=== PATIENT | female | born 1995 | race Caucasian/White ===

== ENCOUNTER 2022-05-18 10:52 | Outpatient (RCR) | payer OTHER, SELFPAY ==
[2022-05-20] MEDS: RHO(D) IMMUNE GLOBULIN 300 MCG/2 ML SYRINGE IM (16:36)
== END 2022-08-16 23:59 | disposition home or self-care (01) ==
LOC: ANHLAB 10:52
PROVIDERS: Visit Provider Obstetrics & Gynecology
DX: Z29.13 Encounter for prophylactic Rho(D) immune globulin (principal); O36.0190 Maternal care for anti-D [Rh] antibodies, unspecified trimester, not applicable or unspecified; Z3A.00 Weeks of gestation of pregnancy not specified
CPT/HCPCS: 36415; 85461; 86850; 86900; 86901; 90384; 96372; J2790

== ENCOUNTER 2022-07-31 10:48 | Outpatient (CLI) | payer OTHER, SELFPAY | END 2022-07-31 12:00 | disposition home or self-care (01) | LOC: ANHOBOP 11:53 → ANHLDR 11:54 | PROVIDERS: PCP Nurse Practitioner Family; Visit Provider Obstetrics & Gynecology | DX: O42.90 Premature rupture of membranes, unspecified as to length of time between rupture and onset of labor, unspecified weeks of gestation (principal) | CPT/HCPCS: 59025; 84112; 99199 ==

== ENCOUNTER 2022-08-06 15:52 | Inpatient (IN) | payer OTHER, SELFPAY ==
[2022-08-06] VITALS (39 sets, daily range): BP systolic 82–136; BP diastolic 49–92; PULSE 50–199; O2SAT 99–100; BMI 28.3
[2022-08-06 16:51] LABS: Basophils Percent Auto 0.4 % (0.2-1.2); Eosinophils Absolute Auto 0.1 K/mm3 (0-0.3); Hematocrit 33.9 % (37.0-47.0); Immature Granulocyte Absolute 0.17 K/mm3 (0.00-0.031); Immature Granulocyte Percent A 1.6 % (0-0.5); Lymphocytes Absolute Auto 1.57 K/mm3 (0.9-3.2); Lymphocytes Percent Auto 15.1 % (18.3-44.2); Mean Corpuscular HGB Conc 32.4 g/dl (32-36); Mean Corpuscular Hemoglobin 28.4 pg (26-34); Mean Corpuscular Volume 87.6 fl (80-100); Mean Platelet Volume 11.3 fl (7.4-10.4); Monocytes Absolute Auto 0.8 K/mm3 (0.1-0.6); Monocytes Percent Auto 7.9 % (2.6-8.5); Neutrophils Absolute Auto 7.7 K/mm3 (1.3-6.7); Platelet Count Result 228 k/mm3 (150-375); Red Blood Count 3.87 M/mm3 (4.2-5.4); Red Cell Distribution Width 13.9 % (11.5-14.5); White Blood Count 10.4 K/mm3 (4.5-10.0)
--- NOTE | 2022-08-06 17:26 | WPDANESEPP ---
Anes - Eval Pre Procedure Procedure: Labor epidural Date/Time: 08/06/22 17:26 Surgeon: Bang Preop Diagnosis: Abdominal pain with contractions Pre Op Diagnosis: IOL Patient Data Age: 26 Gender: F Height: Weight: Last Vital Signs Pulse 199 H 08/06/22 17:15 BP 106/82 08/06/22 17:15 Allergies Allergy/AdvReac Type Severity Reaction Status Date / Time No Known Allergies Allergy Verified 07/11/22 15:42 Home Medications Medication Instructions Recorded Confirmed Type buspirone 30 mg tablet 30 mg PO BID 07/11/22 08/06/22 History prenat.vits,lucho,zfu-xtki-depkv 1 tablet PO DAILY 07/11/22 08/06/22 History Laboratory Tests 08/06/22 08/06/22 16:25 16:26 WBC 10.4 H K/mm3 (4.5-10.0) RBC 3.87 L M/mm3 (4.2-5.4) Hgb 11.0 L g/dL (12.0-15.0) Hct 33.9 L % (37.0-47.0) MCV 87.6 fl (80-100) MCH 28.4 pg (26-34) MCHC 32.4 g/dl (32-36) RDW 13.9 % (11.5-14.5) Plt Count 228 k/mm3 (150-375) MPV 11.3 H fl (7.4-10.4) Immature Gran % (Auto) 1.6 H % (0-0.5) Neut % (Auto) 74.0 H % (45.5-73.1) Lymph % (Auto) 15.1 L % (18.3-44.2) Haskell % (Auto) 7.9 % (2.6-8.5) Eos % (Auto) 1.0 % (0-4.4) Baso % (Auto) 0.4 % (0.2-1.2) Lymph # (Auto) 1.57 K/mm3 (0.9-3.2) Haskell # (Auto) 0.8 H K/mm3 (0.1-0.6) Eos # (Auto) 0.1 K/mm3 (0-0.3) Baso # (Auto) 0.0 K/mm3 (0.0-0.1) Abs Immat Gran (auto) 0.17 H K/mm3 (0.00-0.031) Absolute Neuts (auto) 7.7 H K/mm3 (1.3-6.7) Absolute Nucleated RBC 0.0 K/mm3 (0.0-0.012) Nucleated RBC % 0.0 % (0.0-0.2) RPR Pending : gestational age HCG: positive Patient hx anesthesia problems: none Family hx anesthesia problems: none Results Review: All pre-operative results and documents have been reviewed as part of the pre-operative evaluation. [facility] Past Medical History Medical History Anxiety and depression Migraines Overweight (BMI 25.0-29.9) and not yet delivered Family History Family History Other Patient denies significant medical history Social History Social History Smoking status: Never smoker Substance use: never Lack of Transportation: No Lack of Food: Never True Current Housing: I Have Housing Concerned About Future Housing: No Difficulty Paying Gas/Electric Bills: No Difficulty Paying for Meds: No Currently Unemployed: No Education: Bachelor's Degree Difficulty w/ Childcare or Family Care: No Spiritual care concerns: No Exam Day of Procedure 08/06/22 17:26 Patient weight: overweight Neurological: alert and oriented
[2022-08-06] MEDS: DINOPROSTONE 10 MG VAG INSERT VAGINAL (17:30)
--- NOTE | 2022-08-06 18:21 | LDADM ---
This patient, Josefa Ceron, was admitted to Labor/Delivery/Recovery 103 on 08/06/22 at 15:52. Plans for labor, pain management and were discussed with patient. Patient/family oriented to hospital policies and general routines including ID bracelet, bed and alarms, visiting hours, pain management, procedures, bathroom and other care routines, personal items, smoking policy, room service/diet and guest tray routines, infant security routines, and visiting hours. Patient/Family are encouraged to report perceived risks to care and to ask questions if they do not understand what they are told or what they should do. See [facility] for further documentation.
[2022-08-07] VITALS (284 sets, daily range): BP systolic 78–152; BP diastolic 40–100; PULSE 58–136; RESP 16–18; TEMP 36.8–37.4; O2SAT 97–100
--- NOTE | 2022-08-07 12:05 | HP_ITS ---
DATE OF SERVICE: 08/06/2022 ADMITTING DIAGNOSIS: Intrauterine at 39 and 3/7th weeks gestation. PLANNED PROCEDURE: Induction of labor. HISTORY OF PRESENT ILLNESS: The patient is a 26-year-old, primigravida with last menstrual period 11/03/2021 giving her due date of 08/10/2022. Her has been essentially uncomplicated. She is Rh-negative, and has received RhoGAM. She has anxiety and takes BuSpar. Glucose challenge test was normal at 71. GBS was negative. Her blood type is O negative, she is rubella nonimmune, hepatitis B surface antigen negative, RPR negative, and HIV negative. She has occasional contractions and good movement. She was admitted last evening. Cervidil was placed overnight. It has been withdrawn. She is now receiving oxytocin and is feeling some contractions. PAST MEDICAL HISTORY: Anxiety. MEDICATIONS: 1. BuSpar 30 mg p.o. b.i.d. 2. vitamins. ALLERGIES: NO KNOWN DRUG ALLERGIES. PAST SURGICAL HISTORY: None. PAST OBSTETRIC HISTORY: None. PAST GYNECOLOGY HISTORY: Menarche age 16 with menses every 28 days, lasting 5-7 days each. She has no history of abnormal Pap or sexually transmitted infection. SOCIAL HISTORY: She is . She does not smoke, drink, or use recreational drugs. FAMILY HISTORY: Positive for cancer, hypertension, and diabetes. REVIEW OF SYSTEMS: Otherwise, unremarkable. PHYSICAL EXAMINATION: VITAL SIGNS: Afebrile. Stable vital signs. GENERAL: She is a well-developed, well-nourished female, in no acute distress. NECK: Trachea midline. No thyromegaly or masses. LUNGS: Clear to auscultation bilaterally. HEART: Regular rate and rhythm. Normal S1, S2. ABDOMEN: Soft, nontender, and gravid. Nonstress test is reactive. Tocodynamometry reveals uterine contractions every 3 minutes. EXTREMITIES: Nontender with no edema. PELVIC: Cervix is 1 cm dilated, 50% effaced, and -2 station. ASSESSMENT: Intrauterine at term, desiring induction of labor. PLAN: She is status post Cervidil, now receiving oxytocin. She thinks she would like an epidural for pain control. I anticipate a vaginal delivery. D I MT: Mana
[2022-08-07] MEDS: ONDANSETRON INJ 4 MG/2 ML VIAL IV PUSH (21:26)
[2022-08-08] VITALS (11 sets, daily range): BP systolic 102–132; BP diastolic 54–117; PULSE 66–129; RESP 16–18; TEMP 36.6–37.7; O2SAT 97–100
--- NOTE | 2022-08-08 00:15 | PC.NURSE ---
Pt only had 100 ml of Pitocin to be bolused. Per Dr. Cuenca's order, bolus 2nd half of second bag of Pitocin then switch to 125 mu/hr.
--- NOTE | 2022-08-08 00:23 | PM.OBPRVD ---
OB - Delivery Note Procedure Delivery date: 08/08/22 Procedure: Induction of labor Induction method: Per Cervidil Protocol Delivery augmentation: Rupture of Membranes and Pitocin Delivery monitor: External FHT, External Uterine and Internal Uterine Route of delivery: Laceration Description: Perineal - 2nd Degree Delivery repair: vicryl (3-0) Specimen: Yes (cord blood) Quantitative Blood Loss (ml): 110 Anesthesia type: Epidural Disposition: PACU Complications: None Narrative: 26 y/o G1 at 39 4/7 weeks gestation who presented to the hospital for induction of labor. Cervidil was placed overnight, then withdrawn in the morning. Oxytocin was administered intravenously. Amniotomy was performed with return of clear fluid. She received an epidural for pain control. Her labor progressed and her cervix dilated completely. She pushed with good effort and delivered the 's head to the perineum, followed by the body. The nose and mouth were bulb suctioned. After a delay, the cord was clamped and cut. The infant was handed off the field. Cord blood was collected. The placenta delivered spontaneously and was grossly normal in appearance. The usual 3 vessel cord was noted. A second degree midline perineal laceration was sustained. This was reapproximated using 3 0 Vicryl in the usual layered fashion. Excellent hemostasis resulted as did excellent reapproximation of the normal anatomy. Needle and instrument counts were correct. The patient was taken to recovery room in stable condition. The infant went to the nursery in stable condition. I was present and scrubbed for the entire delivery. [place] Baby Date of : 08/07/22 Time of : 23:59 Weeks of gestation at delivery: 39 gender: Female presentation: vertex position: Right Occiput Anterior Placenta delivery description: Spontaneous and Normal Configuration Cord Vessel Description: 3 Vessels, Delayed Cord Clamping and Around Extremity score one minute: 9 score five minutes: 9
[2022-08-08] MEDS: OXYTOCIN 30 UNITS/NS 500 ML 30 UNITS/500 ML BAG 125 UNITS IV CONT (00:32)
--- NOTE | 2022-08-08 00:32 | PM.OBDSVD ---
DS: Admitting Diagnosis Discharge Date 08/09/2022 <Tomi Gonzalez MD - Last Filed: 08/09/22 08:35> Admitting Diagnosis IUP at 39 4/7 weeks <Zeyad Cuenca MD - Last Filed: 08/22/22 02:30> DS: Discharge Diagnosis Discharge Diagnosis (1) (normal spontaneous vaginal delivery): Code(s): O80 - Encounter for full-term uncomplicated delivery <Zeyad Cuenca MD - Last Filed: 08/22/22 02:30> Status: Acute <Zeyad Cuenca MD - Last Filed: 08/22/22 02:30> OB - DS: Summary OB Procedures : None <Zeyad Cuenca MD - Last Filed: 08/22/22 02:30> OB Procedures Intrapartum: Spontaneous Vag Delivery <Zeyad Cuenca MD - Last Filed: 08/22/22 02:30> OB Procedures: : RHo (D) lg and Rubella lg <Zeyad Cuenca MD - Last Filed: 08/22/22 02:30> Time Spent with Patient Time attestation: Total time spent providing and/or coordinating discharge services: <Zeyad Cuenca MD - Last Filed: 08/22/22 02:30> Discharge Plan Discharge Attending physician on discharge: Zeyad Cuenca <Zeyad Cuenca MD - Last Filed: 08/22/22 02:30> Zeyad Cuenca <Tomi Gonzalez MD - Last Filed: 08/09/22 08:35> Consulting providers: Tomi Mckeon; Kris Kinsey; Iveth Trinh <Zeyad Cuenca MD - Last Filed: 08/22/22 02:30> Discharging Clinician: Zeyad Cuenca <Zeyad Cuenca MD - Last Filed: 08/22/22 02:30> Zeyad Cuenca <Tomi Gonzalez MD - Last Filed: 08/09/22 08:35> Patient Disposition: Home, Self-Care <Zeyad Cuenca MD - Last Filed: 08/22/22 02:30> Activity: pelvic rest <Zeyad Cuenca MD - Last Filed: 08/22/22 02:30> pelvic rest <Tomi Gonzalez MD - Last Filed: 08/09/22 08:35> Diet: regular <Zeyad Cuenca MD - Last Filed: 08/22/22 02:30> regular <Tomi Gonzalez MD - Last Filed: 08/09/22 08:35> Discharge Instructions: Education: Mom and Baby Guide Given to: Mother Follow-Up: Call your delivering provider's office for an appointment to be seen in: 6 Weeks Mom and baby should come to the [facility] for the follow-up appointment. Appointment Date/Time: Friday, August 12, 2022 at 11:00 a.m. What to expect at your follow-up visit: Blood Pressure Check Physical Assessment Call [phone] if you are unable to keep your appointment time. BREAST CARE: * Wear a snug supportive bra. * For engorgement discomfort: Breast Feeding: * Apply warm moist washcloths * Express milk as needed to relieve engorgement * Wear loose clothing * For sore nipples: * Identify correct latch-on * Apply warm moist washcloths before and after nursing * Air dry nipples after nursing * May apply Lansinoh cream to nipples EPISIOTOMY/PERINEAL CARE: * Until bleeding stops, use your duyen bottle after urinating * Change your pad frequently throughout the day * You may take sitz baths several times a day (fill your bathtub with warm water and soak for 20 minutes.) Do NOT bathe in the water * No tub baths until seen by your physician - You may shower ACTIVITY: * Rest as much as possible. * Do not exercise or lift anything heavier than your baby (such as laundry or other children.) * Avoid stairs or driving as much as possible. * Do not put anything into the vagina. No douching, tampons, or sexual activity until seen by physician. NOTIFY PHYSICIAN IF YOU HAVE ANY QUESTIONS OR IF ANY OF THE FOLLOWING SYMPTOMS OCCUR: * If your perineum becomes red, swollen, or more painful than what you have experienced in the hospital. * If your vaginal bleeding becomes foul smelling. * If your vaginal bleeding becomes more heavy than a period or if your bleeding changes from pink to bright red. However, you may pass an occasional walnut-sized
[2022-08-08] MEDS: busPIRone HCL 10 MG TABLET 30 MG PO ×3 (00:56→16:39)
[2022-08-08] MEDS: IBUPROFEN 600 MG TABLET PO ×4 (01:14→22:01)
--- NOTE | 2022-08-08 01:30 | PN_ITS ---
DATE OF SERVICE: 08/06/2022 TIME OF VISIT: 12:55. SUBJECTIVE: The patient has been feeling more contractions. Epidural was just placed, and she feels much better. OBJECTIVE: VITAL SIGNS: Afebrile with stable vital signs. ABDOMEN: Nonstress test is reactive. Tocodynamometry shows contractions every 3 minutes. PELVIC: Cervix, 1 cm to 2 cm dilated, 50% effaced, -2 station. AROM with return of clear fluid. Intrauterine pressure catheter placed. ASSESSMENT: Labor. PLAN: Continue oxytocin. Anticipate spontaneous vaginal delivery. D I MT: Mana
[2022-08-08] MEDS: WITCH HAZEL 40 PADS 1 PAD TOPICAL (01:45)
[2022-08-08] MEDS: BENZOCAINE 20% AER SPR (*SP) 56 GM CAN 1 SPRAY TOPICAL (01:45)
--- NOTE | 2022-08-08 02:35 | PC.NURSE ---
Patient transferred to post room # via (W/C). Support person present. Oriented to unit, room, information board, rooming in, admission packet and security measures. Patient verbalizes understanding.
[2022-08-08] MEDS: DOCUSATE SODIUM 100 MG CAPSULE PO ×2 (09:15→16:38)
[2022-08-08] MEDS: MULTIVIT/MIN/PREN/FOL AC/IRON TABLET 1 TAB PO (09:15)
--- NOTE | 2022-08-08 12:04 | PC.NURSE ---
Paper documentation exists on this patient due to [employer] downtime on 08/07/22 from 0030 to 1900.
--- NOTE | 2022-08-08 12:47 | PM.OBPNVD ---
OB - PN: Subj Subjective Date/time seen: 08/08/22 12:47 Narrative: Pain OK. OB - PN: Obj Data Labs 08/06/22 16:25 OB - PN A/P Plan Comments: A: PPD#1, doing well. P: Routine care. Exam Psych: Other: AVSS ABD soft, nontender, fundus firm EXT nontender
--- NOTE | 2022-08-08 13:34 | WPDANLDPN2 ---
Anes-Prog Note L&D Date/Time: 08/08/22 13:34 Neuro status: Neuro function grossly intact. Vital Signs: Last Vital Signs Temp 36.7 C 08/08/22 12:29 Pulse 68 08/08/22 12:29 Resp 16 08/08/22 12:29 BP 115/54 L 08/08/22 12:29 Pulse Ox 98 08/08/22 12:29 O2 Del Method Room Air 08/08/22 09:15 Pain score (VAS): 0 I/O: Intake & Output 08/07/22 08/08/22 08/08/22 23:59 07:59 15:59 Output Total 260 Balance -260 Patient feedback: Patient satisfied with anesthetic care.
--- NOTE | 2022-08-08 13:35 | PC.NURSE ---
[id number] Introductions were made, then consulted with patient to assess needs related to after mother had requested to see . Mother led the conversation with her?plans to feed?her and the?experience so far with using a nipple shield. Encouraged understanding of the benefits of skin to skin (demonstrating unwrapping infant and placing upright on her chest), stimulating with massage touch, changing positions to encourage wakefulness, how to watch for early feeding cues, responsive feeding, feeding on demand (aiming for 8-12 times in 24 hours, about every 2-3 hours), milk production, building/maintaining a milk supply, duration of feeding, signs of adequate intake/output and how to record on the feeding sheet. Reviewed positioning and ear, shoulder, hip alignment, supporting the breast with a sandwich hold to facilitate a deep latch, asymmetrical latch (off-center), leading with the chin with a big, open, wide gape and body close to mother. Nipple care reviewed with optimal latch and good positioning. Reviewed good handwashing when or touching the breast/nipples to prevent infection. Resources used to facilitate learning were used with the visual handouts, tool, mom and baby guide. Mother voiced understanding of skin to skin, stimulating with massage touch, responsive feedings, hand expressed colostrum, talking to infant to encourage if it has been 2 -2.5 hours since the start of the last , to call if infant does not latch, or if there is discomfort with . Infant attempts to latch to the right breast in football and in cross cradle position. attempts to latch shallow, cries at the breast, or falls asleep at the breast. Nipple care reviewed with optimal latch and good positioning. Reviewed good handwashing when or touching the breast/nipples to prevent infection. Infant placed [id number] to promote bonding and feeding cues. [id number] After demonstrated feeding cues, infant was encouraged to position at the breast. Infant cries at the breast, so she was placed [id number] to organize. Once feeding cues were visualized, was encouraged to latch using good positioning. Infant attempts to latch to the nipple, then pulls back to shallow latch. There are times the doesn't attempt to latch, cries, or sleeps. Reviewed good handwashing, cleaning the nipple shield and application. Discussed with mom the nipple shield precautions, possible complications associated with the risks and benefits. Reviewed practicing with a nipple shield, then without and how to protect the milk supply and production. Reviewed the importance of hand expression, nipple stimulation and initiating a pumping schedule if continues to nurse with the shield. Attempted with the nipple shield that mother was given to use for the first breastfeed, attempts to latch to the tip of the nipple shield and when there is an appropriate latch to the nipple shield suckles a few times, then stops efforts. Once the gets into a pattern of sucking, the nipple shield is removed and is attempted to latch to the breast, however; infant attempts to latch to the breast with no maintaining of an effective latch. Infant is attempted with the nipple shield once more and shows no efforts. Infant was placed [id number] on mothers chest. Resources used to facilitate learning were used with the visual handouts, tool, mom and baby guide. Mother voiced understanding of skin to skin, stimulating with massage touch, responsive feedings, hand expressed colostrum, talking to infant to encourage if it has been 2 -2.5 hours since the start of the last , to call if infant does not latch, or if there is discomfort with . Resources provided for inpatient/outpatient with the mom/baby guide. Parents voiced understanding of information, demo
[2022-08-08 14:00] LABS: Rapid Plasma Reagin Non-Reactive (NonReactive)
--- NOTE | 2022-08-08 14:03 | PC.NURSE ---
[id number] Introductions were made, then consulted with patient to assess needs related to after a request to have a consult. Mother led the conversation with her?plans to feed?her and the?experience so far. Resources provided for inpatient and outpatient services with the feeding sheet, mom/baby guide and name written on the white board. Mother voiced understanding of information and voiced consent for assistance with . Mother works well with her with encouragement and education. Encouraged understanding of the benefits of skin to skin (demonstrating unwrapping and placing upright on her chest), stimulating with massage touch, changing positions to encourage wakefulness, how to watch for early feeding cues, responsive feeding, feeding on demand (aiming for 8-12 times in 24 hours, about every 2-3 hours), milk production, building/maintaining a milk supply, duration of feeding, signs of adequate intake/output and how to record on the feeding sheet. Reviewed positioning and ear, shoulder, hip alignment, supporting the breast to facilitate a deep latch, asymmetrical latch (off-center), leading with the chin with a big, open, wide gape and body close to mother. Infant attempts to latch at times, cries at times, or is sleepy and reluctant. Nipple care reviewed with optimal latch and good positioning. is repositioned [id number] to reorganize, then when feeding cues are rarely seen we attempt to offer the breast to the . At times infant will open wide to latch, however; will attempt to latch with a shallow latch or cry. Reviewed good handwashing when or touching the breast/nipples to prevent infection. Resources used to facilitate learning were used with the visual handouts, tool, mom and baby guide. Resources provided for inpatient/outpatient with feeding sheet, the mom/baby guide, and name written on the communication board. Parents voiced understanding of information, demonstrated learning and will call if there is a request for assistance. Primary RN is present and aware of progress, setbacks, attempt, 's efforts, and mother plans to remove the milk from her breast with hand expression to protect her milk supply. Mother voiced understanding of skin to skin, stimulating with massage touch, responsive feedings, hand expressed colostrum, talking to to encourage if it has been 2 -2.5 hours since the start of the last , to call if does not latch, or if there is discomfort with .
--- NOTE | 2022-08-08 14:35 | PC.NURSE ---
Breast pump provided due to ineffective feedings. Instructions given on cleaning, care, usage, that there should be no pain, pumping schedule for milk production, collection, and storage of human milk. Parents are encouraged to record pumping schedule on the feeding sheet. Patient was assessed for correct placement, flange size, to pump for comfort and nipple stretching/stimulation for adequate milk production every 3 hours (8 times in 24 hours) 1-2 times at night.
[2022-08-08] MEDS: ACETAMINOPHEN 325 MG TABLET 650 MG PO (14:42)
[2022-08-09] VITALS: BP 121/70; PULSE 66; RESP 18; TEMP 36.6; O2SAT 100
[2022-08-09] MEDS: ACETAMINOPHEN 325 MG TABLET 650 MG PO (01:23)
[2022-08-09 02:51] LABS: Hematocrit 29.5 % (37.0-47.0); Hemoglobin 9.8 g/dL (12.0-15.0)
[2022-08-09 07:25] VITALS: BP 120/60; PULSE 66; RESP 18; TEMP 36.9; O2SAT 100
[2022-08-09 08:00] VITALS: PULSE 66; RESP 18; O2SAT 100
--- NOTE | 2022-08-09 08:35 | PM.OBPNVD ---
OB - PN: Subj Subjective Date/time seen: 08/09/22 08:35 Patient comments: no complaints and pain well controlled baby status: doing well and nursing well OB - PN: Obj Data Labs 08/09/22 02:39 Labs: Laboratory Results - last 24 hr 08/06/22 08/09/22 16:26 02:39 Hgb 9.8 L Hct 29.5 L RPR Non-reactive Blood Type O Negative Antibody Screen TNP Screen Negative Baby's Blood Type O pos Baby's DON Positive Doses of RhIg Required 1 OB - PN A/P Plan day: 2 Plan: routine care, discharge home and follow up 6 weeks Time Spent With Patient Time: Total time spent is greater than 50% in coordination of care (as documented) at patient's floor/unit and/or counseling patient: Time with patient: less than 15 minutes Exam Const: General: cooperative, healthy appearing and comfortable Nutritional Appearance: average body habitus Orientation/consciousness: oriented to person, oriented to place and oriented to time Resp: Effort & Inspection: normal respiratory effort GI: Inspection: normal to inspection ( fundus firm below the umbilicus)
[2022-08-09] MEDS: IBUPROFEN 600 MG TABLET PO (08:45)
[2022-08-09] MEDS: DOCUSATE SODIUM 100 MG CAPSULE PO (08:46)
[2022-08-09] MEDS: busPIRone HCL 10 MG TABLET 30 MG PO (08:47)
[2022-08-09] MEDS: MULTIVIT/MIN/PREN/FOL AC/IRON TABLET 1 TAB PO (08:47)
[2022-08-09] MEDS: POLYSACCHARIDE IRON COMPLEX 150 MG CAPSULE PO (08:48)
[2022-08-09] MEDS: RHO(D) IMMUNE GLOBULIN 300 MCG/2 ML SYRINGE IM (11:39)
--- NOTE | 2022-08-09 12:38 | PC.NURSE ---
[id number] Purposefully rounded to assess for needs. Mother states she is unable to latch infant to the breast and has been syringe feeding with sucking on the finger. 's physical assessment visualizes no medical reason infant can not practice , however; does clamp down her jaw, holds tongue in the middle of her mouth, and when she cries the mouth is open but the tongue remains in the middle of the mouth. Parents were encouraged to practice gently encouraging infant to lower her tongue out and down with a finger or pacifier. Reviewed instructions given on cleaning, care, usage, that there should be no pain, pumping schedule for milk production, collection, and storage of human milk. Patient was assessed for correct placement, flange size, to pump for comfort and nipple stretching/stimulation for adequate milk production every 3 hours (8 times in 24 hours) 1-2 times at night. Mother voiced understanding of the education shared along with mom and baby guide for additional resource information. Mother states she is prepared to feed her infant at home. Reviewed paced bottle feeding at home instead of syringe feeding. Reminded parents to use good handwashing technique to prevent infection. Mother is feeding appropriately for growth of infant and understands stimulating to eat if needed. Infant has had adequate feedings in the last 24 hours meets the outcomes for weight, output and jaundice at this time. Mother states she is confident to continue feeding her at home and when to call for assistance. Reinforced understanding of milk production, transition of milk, signs of adequate intake, transition of stool, prevention/relief of engorgement, responsive watching for feeding cues, the different methods of stimulating to breastfeed 2-3 hours after the start of the last feeding, community resources,possibly collaborate with a pediatric OT for tongue training, medication information reviewed per [employer] and when to call a provider using the resource of the mom and baby guide/[facility] website. Parents voiced understanding of the education shared.
[2022-08-09] MEDS: MEASLES,MUMPS,RUBELLA VACCINE 0.5 ML VIAL SUB-Q (14:07)
[2022-08-12 11:17] VITALS: BP 112/75; PULSE 65; RESP 18; TEMP 37; O2SAT 100
== END 2022-08-09 14:57 | disposition home or self-care (01) | DRG 807 ==
LOC: ANHLDR 15:56 → ANHOB2 08-08 02:51
PROVIDERS: Admitting Provider Obstetrics & Gynecology; PCP Nurse Practitioner Family; Visit Provider Obstetrics & Gynecology
DX: O69.2XX0 Labor and delivery complicated by other cord entanglement, with compression, not applicable or unspecified (principal); Z37.0 Single live birth; O70.1 Second degree perineal laceration during delivery; Z3A.39 39 weeks gestation of pregnancy
CPT/HCPCS: 36415; 85014; 85018; 85025; 85461; 86592; 86850; 86880; 86900; 86901; 86902; 90384; 90710; A9270; J2405; J2590; J2790; J2795

== ENCOUNTER 2024-02-21 13:17 | Emergency (ER) | payer BC, SELFPAY ==
[2024-02-21 15:22] VITALS: BP 122/73; PULSE 81; RESP 16; TEMP 36.2; O2SAT 100
--- NOTE | 2024-02-21 16:07 | ED_ITS ---
HPI - URI/Sore Throat General Chief Complaint: Upper Respiratory Infection Stated Complaint: pt is , soledad, shortness of breath, cough Time Seen by Provider: 02/21/24 16:00 Source: patient and RN notes reviewed Mode of arrival: ambulatory Limitations: no limitations History of Present Illness HPI Narrative: Patient presents today complaining of a 2 day history of headache, nasal congestion, rhinorrhea with a fever up to 101.8. Symptoms are worsening since onset. She also reports some shortness of breath with exertion. She has been taking Tylenol with some relief. No history of asthma. She is a nonsmoker. Currently 21 weeks . Related Data Home Medications ?Medication ?Instructions ?Recorded ?Confirmed ?Last Taken ?Type prenat.vits,lucho,jun-ezal-bpivt 1 tablet PO DAILY 07/11/22 02/21/24 08/06/22 09:00 History escitalopram oxalate 20 mg tablet mg 02/21/24 Unknown History Allergies Allergy/AdvReac Type Severity Reaction Status Date / Time No Known Allergies Allergy Verified 02/21/24 15:17 Review of Systems Review of Systems: CONSTITUTIONAL: Denies body aches, chills, or sweats.+ fever EYES: Denies visual changes, redness, or discharge. ENT: Denies sore throat, or otalgia.+ congestion, rhinorrhea CARDIOVASCULAR: Denies chest pain, palpitations, or edema. RESPIRATORY: + cough, shortness of breath GASTROINTESTINAL: Denies abdominal pain, nausea, vomiting, or diarrhea. GENITOURINARY: Denies dysuria or hematuria. SKIN: Denies rash, itching, or wounds. MUSCULOSKELETAL: Denies back pain, joint pain, or myalgia. NEUROLOGIC: Denies numbness, tingling, or weakness.+ headache PSYCH: Denies depression or anxiety. [facility] Past Medical History Medical History Overweight (BMI 25.0-29.9) Anxiety and depression Migraines and not yet delivered Family History Family History Other Patient denies significant medical history Social History Social History Smoking status: Never smoker Substance use: never Lack of Transportation: No Lack of Food: Never True Current Housing: I Have Housing Concerned About Future Housing: No Difficulty Paying Gas/Electric Bills: No Difficulty Paying for Meds: No Currently Unemployed: No Education: Bachelor's Degree Difficulty w/ Childcare or Family Care: No Spiritual care concerns: No Comments At time of signature, I have reviewed and agree with nursing past medical, surgical, social and family history unless otherwise noted. Please see nursing chart for further information. There is no relevant family history pertinent to the presenting complaint Exam Narrative: GENERAL: Ill-appearing, well-nourished, and in no acute distress. HEAD: Normocephalic, atraumatic. EYES: EOMI. No redness or drainage. Conjunctivae normal. ENT: Mucous membranes pink and moist. Nares congested with rhinorrhea. TMs normal bilaterally. Throat normal. Uvula midline. NECK: Normal AROM. Supple. No lymphadenopathy. CHEST: No respiratory distress. Clear to auscultation. HEART: Regular rate and rhythm. No murmur appreciated. EXTREMITIES: Normal range of motion. No edema. SKIN: Warm, dry, no rash. Capillary refill normal. Normal skin turgor. NEURO: No focal deficits. Alert and oriented x3. Gait steady. PSYCH: Normal affect. No signs of depression or anxiety. Course Course Level of Care: Express Care Visit Vital Signs Vital signs: Vital Signs Temperature 97.2 F L 02/21/24 15:22 Pulse Rate 81 02/21/24 15:22 Respiratory Rate 16 02/21/24 15:22 Blood Pressure 122/73 02/21/24 15:22 Pulse Oximetry 100 02/21/24 15:22 Temperature 97.2 F L 02/21/24 15:22 Pulse Rate 81 02/21/24 15:22 Respiratory Rate 16 02/21/24 15:22 Blood Pressure 122/73 02/21/24 15:22 Pulse Oximetry 100 02/21/24 15:22 Reviewed MDM - URI/Sore Throat MDM Narrative Medical decision making narrative: Influenza a positive. Prescription for Tamiflu and albuterol sent to pharmacy. Anticipatory guidance given. Differential Diagnosis Differential diagnosis: Likely upper respiratory infection, viral infection, influenza and other (COVID-19) Lab Data Attestation: I reviewed the patient's lab results. Lab results narrative: COVID negative. Influenza a positive Critical Care Time Critical Care Time Critical Care Time: No Discharge Plan Discharge Clinical Impression: Influenza A Patient Disposition: Home, Self-Care Condition: Stable Instructions: Influenza (DC) Additional Instructions: You have tested positive for influenza A. Please take the Tamiflu as prescribed. Continue [id number] medication as needed. Use albuterol inhaler for shortness of breath. Follow-up with your OBGYN or PCP in 5 days if symptoms are not improving. Go to the ER if symptoms worsen. Your blood pressure was elevated above 120/80 today at Urgent Care. This puts you above the threshold for follow up. Please schedule a followup visit with your personal physician as soon as possible, for further evaluation and treatment. Even blood pressure exceeding 120/80 may indicate pre-hypertension. Patient Language: Stateless Prescriptions: New albuterol sulfate 90 mcg/actuation HFA aerosol inhaler 2 inh inhalation Q4-6H PRN (Reason: shortness of breath or wheezing) Qty: 8.5 0RF (DME) [facility] MDI Spacer Spacer See Rx Instructions .ROUTE .MEDSUPPLY Qty: 1 0RF Rx Instructions: As directed oseltamivir [Tamiflu] 75 mg capsule 75 mg PO Q12H 5 Days Qty: 10 0RF No Action escitalopram oxalate 20 mg tablet prenat.vits,lucho,nff-lmkr-glrlh Tablet 1 tablet PO DAILY Follow-up/Referrals: Jono,Cherelle Whyte, [employer] [Primary Care Provider] - Time of Disposition: 16:11
[2024-02-21 16:17] LABS: EDCOVIDSCREEN Negative (Negative); EDINFLUASCREEN Positive (Negative); EDINFLUBSCREEN Negative (Negative)
== END 2024-02-21 16:13 | disposition home or self-care (01) ==
PROVIDERS: Emergency Provider Nurse Practitioner; PCP Nurse Practitioner Family
DX: O99.512 Diseases of the respiratory system complicating pregnancy, second trimester (principal); Z3A.21 21 weeks gestation of pregnancy; J10.1 Influenza due to other identified influenza virus with other respiratory manifestations; Z20.822 Contact with and (suspected) exposure to COVID-19
CPT/HCPCS: 87426; 87804; 99213; G0463

== ENCOUNTER 2024-04-29 10:16 | Outpatient (RCR) | payer BC, SELFPAY ==
[2024-04-29] MEDS: RHO(D) IMMUNE GLOBULIN 300 MCG/2 ML SYRINGE IM (14:57)
== END 2024-07-28 23:59 | disposition home or self-care (01) ==
LOC: ANHLAB 10:16
PROVIDERS: Visit Provider Obstetrics & Gynecology
DX: Z29.13 Encounter for prophylactic Rho(D) immune globulin (principal); O36.0190 Maternal care for anti-D [Rh] antibodies, unspecified trimester, not applicable or unspecified; Z3A.00 Weeks of gestation of pregnancy not specified
CPT/HCPCS: 36415; 85461; 86850; 86900; 86901; 90384; 96372; J2790

== ENCOUNTER 2024-06-30 16:44 | Inpatient (IN) | payer BC, SELFPAY ==
[2024-06-30] VITALS (61 sets, daily range): BP systolic 110–134; BP diastolic 65–91; PULSE 75–99; O2SAT 96–100; BMI 29.7
--- OUTSIDE RECORDS SUMMARY | 2024-06-30 16:49 | XMS_ITS | Data Portability ---
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 Patient to follow up with primary care provider or return to clinic for any worsening signs and symptoms. Always present to ER or Urgent Care with any progression of/alarming symptoms, significant changes in symptoms or any concerning or urgent matters. Patient verbalized agreement and understanding of treatment plan. F/U 12 weeks, sooner if needed [email or web address] Not available 11/28/2020 12:01:02 02/27/2021 02/27/2021 Medication Changes Signs and symptoms of when to seek further care reviewed with patient. Patient to follow up with primary care provider or return to clinic for any worsening signs and symptoms. Always present to ER or Urgent Care with any progression of/alarming symptoms, significant changes in symptoms or any concerning or urgent matters. Patient verbalized agreement and understanding of treatment plan. F/U 12 weeks, sooner if needed Not available 02/27/2021 20:15:26 10/08/2021 10/08/2021 Medication Changes Weaning Sertraline 25 mg to 12.5 mg as directed to stop Increasing Buspirone to 30 mg BID Signs and symptoms of when to seek further care reviewed with patient. Patient to follow up with primary care provider or return to clinic for any worsening signs and symptoms. Always present to ER or Urgent Care with any progression of/alarming symptoms, significant changes in symptoms or any concerning or urgent matters. Patient verbalized agreement and understanding of treatment plan. F/U 12 weeks, sooner if needed Not available 10/08/2021 16:50:54 12/24/2021 12/24/2021 Medication Changes Signs and symptoms of when to seek further care reviewed with patient. Patient to follow up with primary care provider or return to clinic for any worsening signs and symptoms. Always present to ER or Urgent Care with any progression of/alarming symptoms, significant changes in symptoms or any concerning or urgent matters. Patient verbalized agreement and understanding of treatment plan. F/U 1 year, sooner if needed [email or web address] Not available 12/24/2021 12:37:09 Plan of Treatment Reminders Order Date Submit Date Provider Last Modified By Organization Details Last Modified Time Details Appointments None recorded. Lab CBC 2021 [facility], [address] [place], [address], 07:30:41 CMP, serum or plasma 2021 [facility], [address] [place], [address], 07:30:40 Referral None recorded. Procedures None recorded. Surgeries None recorded. Imaging None recorded. Medication Orders buspirone 30 mg tablet 2021 [email or web address] #06658, [address], [place], [id number], 4 21:49:40 sertraline 25 mg tablet 2021 [email or web address] [facility] #18564, [address], [place], [id number], 12:36:39 buspirone 30 mg tablet 2021 [email or web address] [facility] #80474, [address], [place], [id number], 4 21:49:40 buspirone 15 mg tablet [address] [facility] #39777, [address], [place], [id number], 16:50:55 pseudoephed rine-guaife nesin ER 120 mg-1,200 mg tab,extend release 12hr 2020 022 [facility] #49094, [address], [place], [id number], 14:36:40 buspirone 15 mg tablet [address] [facility] #07788, [address], [place], [id number], 16:50:55 Patient TargetsNo targets recorded. Patient InstructionsNo instructions recorded. Reason for Referral None Reported. Results Created Date Observation Date Name Description Value Unit Range Abnormal Flag Note LastModifiedBy Organization Detail LastModifiedTime 10/09/19 22 10/10/2021 COMPR EHENS TENZIN METAB OLIC PANEL glucose 77 mg/dL 65-99 normal Fasti ng refer ence inter marine Not Available [employer] [address], [address], 10/10/2021 07:30:40 10/09/19 22 10/10/2021 COMPR EHENS TENZIN METAB OLIC PANEL urea nitrogen (BUN) 15 mg/dL 7-25 normal Not Available [employer] [address], [address], 10/10/2021 07:30:40 10/09/19 22 10/10/2021 COMPR EHENS TENZIN METAB OLIC PANEL creatinine 0.84 mg/dL 0.50-0 .96 normal Not Available [employer] [address] [place], [address], 10/10/2021 07:30:40 10/09/19 22 10/10/2021 COMPR EHENS TENZIN METAB OLIC PANEL eGFR 98 mL/mi n/1.7 3m2 > or = 60 normal The eGFR is based on the CKD-E PI 2020 equat ion. To calcu late the new eGFR from a previ ous Creat inine or Cysta tin C resul t, go to https :[email or web address] razo.[email or web address] tafoya.o jose/pr zane simonal s/ kdoqi /gfr% 5Fcal culat or Not Available [address], [address], 10/10/2021 07:30:40 10/09/19 22 10/10/2021 COMPR EHENS TENZIN METAB OLIC PANEL BUN/creatini ne ratio NOT APPLIC ABLE (calc ) 6-22 Not Available [address], [address], 10/10/2021 07:30:40 10/09/19 22 10/10/2021 COMPR EHENS TENZIN METAB OLIC PANEL sodium 138 mmol/ L 135-14 6 normal Not Available [address], [address], 10/10/2021 07:30:40 10/09/19 22 10/10/2021 COMPR EHENS ETNZIN METAB OLIC PANEL potassium 4.0 mmol/ L 3.5-5. 3 normal Not Available [address], [address], 10/10/2021 07:30:40 10/09/19 22 10/10/2021 COMPR EHENS TENZIN METAB OLIC PANEL chloride 103 mmol/ L 98-110 normal Not Available [address], [address], 10/10/2021 07:30:40 10/09/19 22 10/10/2021 COMPR EHENS TENZIN METAB OLIC PANEL carbon dioxide 26 mmol/ L 20-32 normal Not Available [address], [address], 10/10/2021 07:30:40 10/09/19 22 10/10/2021 COMPR EHENS TENZIN METAB OLIC PANEL calcium 9.7 mg/dL 8.6-10 .2 normal Not Available [address], [address], 10/10/2021 07:30:40 10/09/19 22 10/10/2021 COMPR EHENS TENZIN METAB OLIC PANEL protein, total 6.9 g/dL 6.1-8. 1 normal Not Available [address], [address], 10/10/2021 07:30:40 10/09/19 22 10/10/2021 COMPR EHENS TENZIN METAB OLIC PANEL albumin 4.7 g/dL 3.6-5. 1 normal Not Available [address], [address], 10/10/2021 07:30:40 10/09/19 22 10/10/2021 COMPR EHENS TENZIN METAB OLIC PANEL globulin 2.2 g/dL_ (calc ) 1.9-3. 7 normal Not Available [address], [address], 10/10/2021 07:30:40 10/09/19 22 10/10/2021 COMPR EHENS TENZIN METAB OLIC PANEL albumin/glob ulin ratio 2.1 (calc ) 1.0-2. 5 normal Not Available [address], [address], 10/10/2021 07:30:40 10/09/19 22 10/10/2021 COMPR EHENS TENZIN METAB OLIC PANEL bilirubin, total 0.4 mg/dL 0.2-1. 2 normal Not Available [address], [address], 10/10/2021 07:30:40 10/09/19 22 10/10/2021 COMPR EHENS TENZIN METAB OLIC PANEL alkaline phosphatase 57 U/L 31-125 normal Not Available [facility] [email or web address] [address], [address], 10/10/2021 07:30:40 10/09/19 22 10/10/2021 COMPR EHENS TENZIN METAB OLIC PANEL AST 19 U/L 10-30 normal Not Available [address], [address], 10/10/2021 07:30:40 10/09/19 22 10/10/2021 COMPR EHENS TENZIN METAB OLIC PANEL ALT 14 U/L 6-29 normal Not Available [address], [address], 10/10/2021 07:30:40 10/09/19 22 10/10/2021 CBC (H/H, RBC, INDIC ES, WBC, PLT) white blood cell count 7.3 thous and/u L 3.8-10 .8 normal Not Available [address], [address], 10/10/2021 07:30:41 10/09/19 22 10/10/2021 CBC (H/H, RBC, INDIC ES, WBC, PLT) red blood cell count 4.71 reagan on/uL 3.80-5 .10 normal Not Available [address], [address], 10/10/2021 07:30:41 10/09/19 22 10/10/2021 CBC (H/H, RBC, INDIC ES, WBC, PLT) hemoglobin 14.4 g/dL 11.7-1 5.5 normal Not Available [address], [address], 10/10/2021 07:30:41 10/09/19 22 10/10/2021 CBC (H/H, RBC, INDIC ES, WBC, PLT) hematocrit 45.1 % 35.0-4 5.0 high Not Available [address], [address], 10/10/2021 07:30:41 10/09/19 22 10/10/2021 CBC (H/H, RBC, INDIC ES, WBC, PLT) MCV 95.8 fL 80.0-1 00.0 normal Not Available [address], [address], 10/10/2021 07:30:41 10/09/19 22 10/10/2021 CBC (H/H, RBC, INDIC ES, WBC, PLT) MCH 30.6 pg 27.0-3 3.0 normal Not Available [address], [address], 10/10/2021 07:30:41 10/09/19 22 10/10/2021 CBC (H/H, RBC, INDIC ES, WBC, PLT) MCHC 31.9 g/dL 32.0-3 6.0 low Not Available [address], [address], 10/10/2021 07:30:41 10/09/19 22 10/10/2021 CBC (H/H, RBC, INDIC ES, WBC, PLT) RDW 12.8 % 11.0-1 5.0 normal Not Available [address], [address], 10/10/2021 07:30:41 10/09/19 22 10/10/2021 CBC (H/H, RBC, INDIC ES, WBC, PLT) platelet count 278 thous and/u L 140-40 0 normal Not Available [address], [address], 10/10/2021 07:30:41 10/09/1910/10/2021 CBC (H/H, RBC, INDIC ES, WBC, PLT) MPV 11.4 fL 7.5-12 .5 normal Not Available [facility] [address], [place], [address], 10/10/2021 07:30:41 Result Notes None recorded. Problems Name Problem SNOMED Code Status Onset Date Resolution Date Notes Provider Name and Address Organization Details Recorded Time Tension-typ e headache 250141879 Completed 201912/24/2021 Cherelle Whyte Jono ARC CUTTER-BC, PMHNP-BC [address], [place], [address], [facility] 16:20:44 Elevated blood-press ure reading without diagnosis of hypertensio n 921414990 Completed 201912/24/2021 Cherelle Whyte Jono ARC CUTTER-BC, PMHNP-BC [address], [place], [address], [place] [facility] 2 16:20:46 COVID-19 438234697 Completed 201912/24/2021 Cherelle Whyte Jono ARC CUTTER-BC, PMHNP-BC [address], [place], [address], [place] [facility] 2 16:20:50 Generalized anxiety disorder 08048417 Active 2021 Cherelle Whyte Jono AR[facility] CUTTER-BC, PMHNP-BC [address], [place], [address], [place] [facility] 2 12:06:44 Single episode of major depression in full remission 07181111 Completed 202112/24/2021 Cherelle Whyte Jono AR[facility] CUTTER-BC, PMHNP-BC [address], [place], [address], [place] [facility] 2 16:20:40 Anxiety 24292904 Active 2018 Cherelle De La Cruz, [facility], [facility]- [address] [facility], [place], [address], [facility] 9 15:24:26 Acne 49320967 Completed 201812/24/[address] [facility], [facility]- [address] [facility], [place], [address], [facility] 16:20:53 Insomnia 685782623 Completed 201812/24/[address] [facility], [facility] [address] [place], [address], [facility] 16:21:00 Problem Notes None recorded. Medical Equipment None Reported. Allergies No known drug allergies Medications Name Sig Start Date Stop Date Status Note LastModified by Organization Details LastModified Time amoxicillin 500 mg capsule 05/01 completed Not Available Not Available Not Available propranolol 80 mg tablet TAKE 1 TABLET BY MOUTH TWICE DAILY 05/01 completed Not Available Not Available Not Available trazodone 50 mg tablet TK 1 T PO QD HS 05/01 completed Not Available Not Available Not Available clarithromyc in 500 mg tablet TAKE 1 TABLET BY MOUTH TWICE DAILY FOR 10 DAYS 05/01 completed Not Available Not Available Not Available sertraline 100 mg tablet TAKE 1 TABLET BY MOUTH EVERY DAY 10/08 completed Not Available Not Available Not Available sumatriptan 50 mg tablet Take 1 tablet orally x 1 now for Migraine s. May repeat in 2 hours. Maximum 200 mg/day 06/15 completed Not Available Not Available Not Available propranolol 40 mg tablet TK 1 T PO BID 05/01 completed Not Available Not Available Not Available amoxicillin 875 mg tablet TAKE 1 TABLET BY MOUTH EVERY 12 HOURS FOR 10 DAYS 05/01 completed Not Available Not Available Not Available famotidine 20 mg tablet Take 1 tablet twice a day by oral route for 30 days. 05/01 completed Not Available Not Available Not Available pseudoephedr ine-guaifene sin ER 120 mg-1,200 mg tab,extend release 12hr Take 1 tablet every 12 hours by oral route for 5 days. 05/01 completed Not Available Not Available Not Available benzonatate 100 mg capsule TAKE 1 CAPSULE BY MOUTH EVERY 8 HOURS NEEDED 05/01 completed Not Available Not Available Not Available dexamethason e 2 mg tablet TK 3 TS PO QD FOR 10 DAYS 10/31 completed Not Available Not Available Not Available cephalexin 500 mg capsule TK 1 C PO Q 8 H FOR 10 DAYS 10/31 completed Not Available Not Available Not Available buspirone 30 mg tablet TAKE 1 TABLET BY MOUTH TWICE DAILY 03/08 completed Not Available Not Available Not Available losartan 25 mg tablet Take 1 tablet every day by oral route at bedtime for 90 days. 06/15 completed Not Available Not Available Not Available sertraline 25 mg tablet TAKE 1 TABLET BY MOUTH DAILY FOR 30 DAYS THEN TAKE 1/2 TABLET BY MOUTH DAILY FOR 30 DAYS 12/24 completed Not Available Not Available Not Available buspirone 7.5 mg tablet TAKE 1 TABLET BY MOUTH TWICE DAILY 01/22 completed Not Available Not Available Not Available methylpredni solone 4 mg tablets in a dose pack Take 1 dose pk every day by oral route as directed . 06/15 completed Not Available Not Available Not Available ondansetron 4 mg disintegrati ng tablet DIS 1 T ON THE TONGUE Q 6 H PRF NAUSEA OR VOM 05/01 completed Not Available Not Available Not Available amoxicillin 875 mg-potassium clavulanate 125 mg tablet Take 1 tablet every 12 hours by oral route for 10 days. 06/15 completed Not Available Not Available Not Available Ventolin HFA 90 mcg/actuatio n aerosol inhaler INL 2 PFS PO Q 4 H PRN 05/01 completed Not Available Not Available Not Available buspirone 15 mg tablet TAKE 1 TABLET BY MOUTH TWICE DAILY 10/08 completed Not Available Not Available Not Available escitalopram 10 mg tablet Take 1 tablet every day by oral route for 30 days. 03/11 completed Not Available Not Available Not Available escitalopram 20 mg tablet TAKE 1 TABLET BY MOUTH EVERY DAY 05/01 completed Not Available Not Available Not Available Zinc (with Vitamins A and C) Lozenges Take 1 lozenge 3 times a day by oral route. 05/01 completed Not Available Not Available Not Available Vienva 0.1 mg-20 mcg tablet TAKE 1 TABLET BY MOUTH DAILY 05/01 completed Not Available Not Available Not Available Vitals Date Recorded Body height Heart rate Respiratory rate Oxygen saturation Oxygen saturation in Arterial blood by Pulse oximetry Body temperature Systolic blood pressure Diastolic blood pressure Provider Name and Address Organization Details Last Updated DateTime 1 187.96 cm 70 /min 20 /min 98 % 98 % 96.7 [degF] 116 mm[Hg] 92 mm[Hg] Cherelle De La Cruz, ARC CUTTER-BC, PMHNP-BC [address] [place], [address] [facility] 1 12:01:15 Date Recorded Body height Heart rate Respiratory rate Oxygen saturation Oxygen saturation in Arterial blood by Pulse oximetry Body temperature Systolic blood pressure Diastolic blood pressure Provider Name and Address Organization Details Last Updated DateTime 2 187.96 cm 76 /min 18 /min 98 % 98 % 97.9 [degF] 120 mm[Hg] 62 mm[Hg] Dee Ibarra [facility] 2 19:39:18 Date Recorded Body height Body mass index (BMI) Body weight Heart rate Respiratory rate Oxygen saturation Oxygen saturation in Arterial blood by Pulse oximetry Body temperature Systolic blood pressure Diastolic blood pressure Provider Name and Address Organization Details Last Updated DateTime 2 187.96 cm 24 kg/m2 36102.7 7 g 64 /min 18 /min 99 % 99 % 98.1 [degF] 120 mm[Hg] 82 mm[Hg] Vernon Loya [facility] 2 12:41:19 Date Recorded Body height Oxygen saturation Oxygen saturation in Arterial blood by Pulse oximetry Body temperature Pain severity - 0-10 verbal numeric rating [Score] - Reported Respiratory rate Heart rate Systolic blood pressure Diastolic blood pressure Provider Name and Address Organization Details Last Updated DateTime 2 187.96 cm 98 % 98 % 98.1 [degF] 0 20 /min 90 /min 112 mm[Hg] 80 mm[Hg] Sean Mc [facility] 2 13:10:37 Social History Question Answer Notes LastModified by Organizat ion Details LastModified Time Tobacco Smoking Status Never Smoker Not Available [facility] 12/21/2019 03:14:01 Do You Have An Advance Directive? No [id number] Information not available 12/21/2019 What Is Your Level Of Alcohol Consumption? Occasional [id number] Information not available 12/21/2019 Do You Wear A Helmet When Biking? Yes [email or web address] Information not available 10/31/2020 Are You Blind Or Do You Have Difficulty Seeing? No [email or web address] Information not available 10/31/2020 What Is Your Level Of Caffeine Consumption? Moderate [id number] Information not available 12/21/2019 How Much Tobacco Do You Chew? None [id number] Information not available 12/21/2019 What Type Of Provider Network Manager Do You Use? None [email or web address] Information not available 10/31/2020 What Is Your Code Status? Full Code [email or web address] Information not available 10/31/2020 Are You Currently Employed? Yes [email or web address] Information not available 10/31/2020 Are You Deaf Or Do You Have Serious Difficulty Hearing? No [email or web address] Information not available 10/31/2020 What Type Of Diet Are You Following? REGULAR [email or web address] Information not available 10/31/2020 Which Illicit Or Recreational Drugs Have You Used? None [id number] Information not available 12/21/2019 Do You Or Have You Ever Used E-cigarettes Or Vape? Never Used Electronic Cigarettes [id number] Information not available 12/21/2019 What Is The Highest Grade Or Level Of School You Have Completed Or The Highest Degree You Have Received? 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 No [email or web address] Information no t available 10/31/2020 Are There Any Guns Present In Your Home? No [email or web address] Information not available 10/31/2020 Do You Use Insect Repellent Routinely? Yes [email or web address] Information not available 10/31/2020 Do You Have A Medical Power Of Drug Safety Assistant? No Information not available 10/31/2020 What Was The Date Of Your Most Recent Tobacco Screening? 10/31/2020 Information not available 10/31/2020 Do You Have Any Pets? Yes [email or web address] Information not available 10/31/2020 What Is Your Relationship Status? Domestic Partner [email or web address] Information not available 10/31/2020 Do You Use Your Seat Belt Or Car Seat Routinely? Yes [email or web address] Information not available 10/31/2020 Are You Sexually Active? Yes Information not available 10/31/2020 Do You Have Smoke And Carbon Monoxide Detectors In Your Home? Yes Information not available 10/31/2020 Are You Passively Exposed To Smoke? No [email or web address] Information no t available 10/31/2020 Do You Or Have You Ever Used Smokeless Tobacco? Never Used Smokeless Tobacco [id number] Information not available 12/21/2019 How Much Tobacco Do You Smoke? No [id number] Information not available 12/21/2019 Do You Feel Stressed (tense, Restless, Nervous, Or Anxious, Or Unable To Sleep At Night)? [id number] Information not available 10/31/2020 Do You Use Any Illicit Or Recreational Drugs? No Information not available 10/31/2020 Do You Use Sunscreen Routinely? Yes Information not available 10/31/2020 How Many Years Have You Smoked Tobacco? 0 [id number] Information not available 12/21/2019 Are You Currently In School? No [email or web address] Information not available 10/31/2020 Do You Have Any Dietary Restrictions? No [email or web address] Information not available 10/31/2020 Do You Or Have You Ever Used Any Other Forms Of Tobacco Or Nicotine? No [email or web address] Information not available 10/31/2020 Sex: Female Functional Status Question Answer Note LastModified by Organizat ion Details LastModified Time Do you have difficulty walking or climbing stairs? No Information not available 10/31/2020 Do you have transportation difficulties? No Information not available 10/31/2020 Are you able to walk? YESWOREST [id number] Information not available 12/21/2019 Do you have difficulty doing errands alone? No Information not available 10/31/2020 Are you able to care for yourself? Yes [email or web address] Information not available 10/31/2020 Do you have difficulty dressing or bathing? No Information not available 10/31/2020 What is your exercise level? Moderate [id number] Information not available 12/21/2019 Mental Status Question Answer Note LastModified by Organization D etails LastModified Time Do you have difficulty concentrating, remembering or making decisions? No [email or web address] Information no t available 10/31/2020 Family History Relationship Description Onset Age of this Age Resolved Age Notes LastModified by Organization Details LastModified Time Father Essential hypertension [email or web address] Not available 10:56:40 Father Anxiety disorder Not available 2018 10:56:46 Paternal Grandmother Malignant tumor of breast [email or web address] Not available 2018 10:57:12 Paternal Grandfather Alzheimer's disease [email or web address] Not available 2018 10:57:21 Paternal Uncle Cerebrovascu lar accident [email or web address] Not available 10:57:30 Maternal Grandfather Diabetes mellitus [email or web address] Not available 2018 10:57:50 Medical History Condition Response Anxiety Disorder Y Hypertension Y Gynecological HistoryNo gynecological history recorded. Obstetrics History GPAL:G 0 P 0 0 0 0 Immunizations Vaccine Type Date Status Note Provider Nam e and Address Organization Details Recorded Time Influenza, split virus, quadrivalent, PF 12/07/2020 completed Not Available [facility] 18:45:07 Influenza, split virus, quadrivalent, PF 12/03/2019 completed [facility] 12/03/2019 18:49:23 Past Encounters Encounter ID Performer Location Encounter Start Date Encounter Closed Date Diagnosis/Indication Diagnosis SNOMED-CT Code Diagnosis ICD10 Code Diagnosis Note [id number] Cherelle De La Cruz, ARC CUTTER-BC, PMHNP-BC Main Office [address] [facility] [place] [address] 12/16/2018 10:36:09 12/17/2018 08:52:44 Major depressive disorder 158297897 F32.9 Insomnia 215417108 G47.0 0 Adult heal th examination 376016741 Z00.00 Fatigue 67326887 R53.83 Will check Thyroid levels to r/o Thyroid vs possible increase in depression . Vitamin D deficiency 347 18672 E55.9 [id number] [facility] Main Office [address] [place] [address] 03/11/2019 08:33:32 03/11/2019 12:13:22 Major depressive disorder 492051555 F32.9 Insomnia 825221000 G47.0 0 Acute sinusitis 60473774 J01.90 Finishing up medication s. Resolving. [id number] [facility] Main Office [address] [place] [address] 06/16/2019 08:22:11 06/16/2019 16:11:11 Major depressive disorder 223448060 F32.9 Controlled . Continue regimen. Essential hypertension 84502702 I10 BP much better at visit. Will monitor. Tension-type headache 39 0677660 G44.209 [id number] [facility] Main Office [address] [place] [address] 12/03/2019 12:40:26 12/03/2019 15:53:15 Major depressive disorder 111034584 F32.9 Controlled . Continue regimen. Tension-type headache 39 5673604 G44.209 Elevated blood-pressure reading without diagnosis of hypertension 217052165 R03.0 Much better. Will monitor. COVID-19 166457680 U07.1 Given cocktail in between visits and doing much better. 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 Administra tion of influenza vaccine 06284205 Z23 [id number] [facility] Main Office [address] [place] [address] 05/17/2020 06:34:26 05/18/2020 09:26:28 Major depressive disorder 157674255 F32.9 Controlled . Continue regimen. Tension-type headache 39 2151704 G44.209 Controlled , but has made some lifestyle modificati ons and wants to try coming off medication . Weaning protocol given and explained. [id number] DWIGHT By[address]TABITHA, [facility] Main Office [address] [address] 10/31/2020 06:43:42 10/31/2020 13:18:47 Major depressive disorder [id number] F32.9 Anxiety [id number] F41.[id number] [facility] Main Office [address] [address] 4 11/28/2020 06:44:09 11/28/2020 12:11:35 Anxiety [id number] F41.9 Acute fron logan sinusitis [id number] J01.[id number] [facility] Main Office [address] [address] 4 12/07/2020 17:03:26 12/07/2020 18:19:13 Administration of influenza vaccine [id number] [id number] [facility] Main Office [address] [address] 4 02/27/2021 08:29:59 02/27/2021 20:34:41 Anxiety [id number] F41.9 Doing much better with the changes in medication . Continue regimen. [id number] [facility] [employer] [address] [id number] 4 10/08/2021 10:53:39 10/08/2021 16:58:56 Anxiety [id number] F41.9 Increasing Buspirone given decreasing Sertraline to stop. Single epi sode of major depression in full remission [id number] F32.5 Weaning medication to stop. Doing very well. [id number] [facility] [employer] [address] 4 12/24/2021 06:57:56 12/24/2021 18:09:08 Anxiety [id number] F41.1 Continue Buspirone as this is providing a benefit. Doing very well off sertraline . Health Concerns Section Related Observation LastModified by Organization Detai ls LastModified Time None Recorded Concern Status LastModified by Organization Details LastModified Time None Recorded Advance Directives Directive N: Payers Encounter Date Sequence Insurance Name Policy Number Policy Gaffney Covered Member ID Gaffney Member ID Guarantor Name 11/28/2020 1 [facility] [id number] Josefa Kennedy [id number] Josefa Kennedy 12/07/2020 1 [facility] [id number] Josefa Kennedy [id number] Josefa Kennedy 02/27/2021 1 [facility] [id number] Josefa Kennedy [id number] Josefa Kennedy 10/08/2021 1 [facility] [id number] Josefa Kennedy [id number] Josefa Kennedy 12/24/2021 1 [facility] [id number] Josefa Kennedy [id number] Josefa Kennedy Notes Date Note Type Note Provider Name and Address Organization Details Recorded Time 11/28/2020 text/html Anxiety/Depressi onRepo rted bypatient.Quality:incr eased anxiety Severity:denies suicidal ideations; able to maintain relationships; does not interfere with activities of daily living Duration:symptoms lasting over 2 weeks Onset/Timing:gradual Context:no major life stressors Modifying Factors:medications as directed Associated Symptoms:denies homicidal ideations; no significant weight gain; no significant weight loss; no visual/auditory hallucinations; no delusions; no shortness of breath; mood good; no crying spells; no panic; no isolation; sleeping well; appetite good; energy good; no apathy; maintaining functionality;anxietyS inusitis/AllergyReport ed bypatient.Location:[facility] Quality:no itching;weak voice;hoarseness;achin g;congested;pounding Severity:no nosebleeds (epistaxis); no snoring;limits daily activities;interferenc e with work;frequent breathing through the mouth Duration:infrequent Onset/Timing:abrupt onset Context:not worse with seasonal allergen exposure; not worse around animals; not worse around pollen; not worse around dust; not worse around molds; not worse with environmental exposure; not worse when mowing grass; not worse with certain foods; not worse with odors Aggravating factors:worse during an upper respiratory infection (a cold) Associated Symptoms:no nasal discharge; no fever; no weight loss; no hemoptysis; no hematemesis; no feeling of strangulation; no nausea or vomiting; no headache; no thick phlegm in throat; no nasal discharge; no decreased sense of smell; no nasal passage blockage; no ear fullness; no nasal itching; no eye itching; no pain behind the eyes; no skin itching; no dental pain; no muscle aches;cough;difficulty breathing;facial pain bilaterally;sinus pain forehead;sore throat;constantly clearing the throat Risk Factors:no current smoking or tobacco use; no history of smoking; no increased stress; no family history of allergies; no history of nasal trauma; no allergy to aspirin; no history of nasal polyps; no history of asthma; no chemotherapy; no DM; no HIV; no immunodeficiency Cherelle De La Cruz [facility], [address] [facility] 11/28/2020 12:02:17 02/27/2021 text/html Anxiety/Depressi onRepo rted bypatient.Quality:symp toms improved Severity:denies suicidal ideations; able to maintain relationships; does not interfere with activities of daily living Duration:symptoms lasting over 2 weeks Onset/Timing:gradual Context:no major life stressors Modifying Factors:medications as directed Associated Symptoms:denies homicidal ideations; no significant weight gain; no significant weight loss; no visual/auditory hallucinations; no delusions; no shortness of breath; mood good; no crying spells; no panic; no isolation; sleeping well; appetite good; energy good; no apathy; maintaining functionality [facility], [address], [id number] [place] [address] [facility] 02/27/2021 20:15:48 10/08/2021 text/html Anxiety/Depressi onRepo rted bypatient.Quality:symp toms improved Severity:denies suicidal ideations; able to maintain relationships; does not interfere with activities of daily living Duration:symptoms lasting over 2 weeks Onset/Timing:gradual Context:no major life stressors Modifying Factors:medications as directed Associated Symptoms:denies homicidal ideations; no significant weight gain; no significant weight loss; no visual/auditory hallucinations; no delusions; no shortness of breath; mood good; no crying spells; no panic; no isolation; sleeping well; appetite good; energy good; no apathy; maintaining functionality PARAG Byrd, [facility] [address] [place], [address], [facility] 10/08/2021 16:52:48 12/24/2021 text/html Anxiety/Depressi onRepo rted bypatient.Quality:symp toms improved Severity:denies suicidal ideations; able to maintain relationships; does not interfere with activities of daily living Duration:symptoms lasting over 2 weeks Onset/Timing:gradual Context:no major life stressors Modifying Factors:medications as directed Associated Symptoms:denies homicidal ideations; no significant weight gain; no significant weight loss; no visual/auditory hallucinations; no delusions; no shortness of breath; mood good; no crying spells; no panic; no isolation; sleeping well; appetite good; energy good; no apathy; maintaining functionality PARAG Byrd, DEE DEE [address] [place], [address], [facility] 12/24/2021 16:21:16 OBGyn Episode No OBEpisode recorded.
--- OUTSIDE RECORDS SUMMARY | 2024-06-30 16:49 | XMS_ITS | Clinical Summary ---
Author Organization [employer] Address [address] [place] [address] Care Team Providers Care Block Cableman Name Role Phone Deepthi Garcia MD Unavailable Source Comments [employer],non-owned Affiliates and Associated Physician Practices is amultiple site organization consisting of ambulatory clinics and hospital sitesin [place], [place], [place] and [place]. This disclosure is being madepursuant to the Care Everywhere program and may not contain all information available regarding this patient. Last updated 17.[employer] Allergies No known active allergies Active Problems Problem Noted Date Diagnosed Date Abnormal chromosomal and gen etic finding on screening of mother 01/08/2024 Overview (01/29/2024): NIPT low fraction, but [facility] lab still classified as high risk for either T18 or T13. Seen at 17w for early anatomic survey and no obvious abnormalities seen, but cardiac views were particularly challenging due to position. Discussed follow up genetic testing with repeat NIPT or amniocentesis, but patient and partner would prefer to wait for next ultrasound to make a decision at this time. Follow up scheduled at 20w. Discussed patient can call and schedule repeat NIPT or amnio at any time if she changes her mind. Estimated Date of Delivery Comme nts Yes 07/06/2024 Based on last me nstrual period of 09/30/2023 Encounters Date Type Department Care Team Description 05/17/2024 Telephone [facility]/ EVALUATION UNIT [address] [place] [address] [address] [place] [address] Bing Gonzalez Appointment 05/13/2024 12:45 PM CDT - 05/13/2024 11:59 PM CDT Hospital Encounter [facility]/ EVALUATION UNIT 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 [place] [address] Jeimy Ramsey MD Discharge Disposition: Home or Self Care 04/15/2024 Travel from Last 3 Months Immunizations Immunization Administration Dates Next Due DTaP VACCINE IM (6wk-6yrs) 07/30/1999,,03/25/1995,01/14/1995,12/05 HEP A PEDS 2 DOSE 09/05/2006,08/06/2005 HEP B VACCINE, PED/ADOL 03/25/1995,1994, HIB BOOSTER 05/07/1996 MENINGOCOCAL MENINGITIS 09/19/2008 MMR 07/30/1999,10/14/1995 POLIO IPV 07/30/1999 POLIO OPV 03/25/1995,01/14/1995,1994 PPD 07/30/1999 TDAP (7yrs+) 09/05/2006 Social History Tobacco Use Types Packs/Day Years Used Date Smoking Tobacco: Never Assessed Estimated Date of Delivery Comme nts Yes 07/06/2024 Based on last me nstrual period of 09/30/2023 Sex and Gender Information Value Date Recorded Sex Assigned at Not on file Legal Sex Female 6:41 AM CLOTH F[employer]DER HAND Gender Identity Not on file Sexual Orientation Not on file Last Filed Vital Signs Vital Sign Reading Time Taken Comments Blood Pressure 118/60 09/28/2010 3:26 PM CDT Pulse 56 09/21/2009 11:39 AM CDT Temperature 37.4 C (99.4 F) 09/28/2010 3:26 PM CDT Respiratory Rate - - Oxygen Saturation - - Inhaled Oxygen Concentration - - Weight 65.9 kg (145 lb 3.2 oz) 09/28/2010 3:26 P M CDT Height 180.3 cm (5' 11 ) 09/28/2010 3:26 PM CDT Body Mass Index 20.25 09/28/2010 3:26 PM CDT Plan of Treatment Health Maintenance Due Date Last Done Comments PAP SMEAR 1994 HIV SCREENING 2009 HEPATITIS C SCREENING 09/06/2012 DTAP/TDAP/TD VACCINES (7 - Td or Tdap) 09/05/2016 09/05/2006, 07/30/1999, 05/07/1996, Additional history exists COVID-19 VACCINE ( season) 2023 DEPRESSION SCREENING 02/25/2024 OB-ONE HOUR GLUCOSE 03/30/2024 OB-TDAP CURRENT 04/06/2024 09/05/2006 OB-RHOGAM INJECTION 04/13/2024 OB-GROUP B STREP SCREEN 06/01/2024 INFLUENZA VACCINE (Season Ended) 2024 12/07/2020, 12/03/2019 ZOSTER VACCINE (1 of 2) 2044 HEPATITIS B VACCINE Completed 03/25/1995, 1994, 1994 HIB VACCINE Completed 05/07/1996 MENINGOCOCCAL GROUPS A/C/Y/W VACCINE Aged Out 09/19/2008 No longer eligible based on patient's age to complete this topic HPV VACCINE Aged Out No longer eligi ble based on patient's age to complete this topic MENINGOCOCCAL (Group B) VACCINE SHARED DECISION-MAKING Aged Out No longer eligible based on patient's age to complete this topic PNEUMOCOCCAL VACCINE Aged Out No long er eligible based on patient's age to complete this topic Respiratory Syncytial Virus (RSV) Vaccine Pt: or over 60 yrs (No Doses Required) Completed Procedures Procedure Name Priority Date/Time Associated Diagnosis Comments SONOGRAM - COMPLETE Routine 05/13/2024 1 :22 PM CDT Abnormal chromosomal and genetic finding on screening of mother SONOGRAM - COMPLETE Routine 04/15/2024 9 :26 AM CLOTH F[employer]DER HAND from Last 3 Months Results * SONOGRAM - COMPLETE (05/13/2024 1:22 PM CDT) Only the most recent of2 resultswithin the time period is included. Linked Results Indication ======== Cell-free DNA: low fraction - s/p genetic counseling, declined amniocentesis Completed anatomic survey History ====== OB History 2. Para 1 Lab Tests Test Date Result NIPT 12/25/2023 High risk for Triploidy, Trisomy 13 or Trisomy 18 due to low fraction 1.7% Maternal Assessment Physical Exam Height 188 cm, 6 ft 2 in. Weight 98 kg, 215 lb. Initial weight 89 kg, 197 lb. BMI 27.60 kg/m . Initial BMI 25.29 kg/m . Weight gain 8 kg, 18 lb Method ====== Transabdominal ultrasound. View: Sufficient ========= Bratxon . Number of fetuses: 1 Dating ====== Date Details Gest. age POOL LMP 09/30/2023 32 w + 2 d 07/06/2024 Stated POOL 32 w + 2 d 07/06/2024 U/S 05/13/2024 based upon AC, BPD, Femur, HC 33 w + 2 d 06/29/2024 Assigned dating based on the LMP, selected on 02/17/2024 32 w + 2 d 07/06/2024 General Evaluation Cardiac activity present. FHR 142 bpm. Presentation: cephalic Placenta: Placental site: anterior Umbilical cord: 3 vessel cord Amniotic fluid: Amount of AF: normal. JENNIFER 15.3 cm. Q1 4.2 cm, Q2 4.1 cm, Q3 2.6 cm, Q4 4.4 cm Biometry BPD 80.9 mm 32w 3d 48% Hadlock HC 303.5 mm 33w 5d 52% Hadlock AC 296.0 mm 33w 4d 84% Hadlock Femur 65.0 mm 33w 4d 71% Hadlock Humerus 57.3 mm 33w 2d 80% Garfield HC / AC 1.03 Weight Calculation: EFW 2,223 g 78% Hadlock EFW (lb,oz) 4 lb 14 oz EFW by Hadlock (HC-AC-FL) Growth Overview Exam date GA BPD (mm) HC (mm) AC (mm) FL (mm) HL (mm) EFW (g) 01/29/2024 17w 2d 38.6 71% 139.8 42% 128.1 83% 26.1 70% 26.2 88% 223 87% 02/17/2024 20w 0d 44.3 25% 172.7 34% 163.6 86% 34.2 69% 33.3 91% 386 90% 04/15/2024 28w 2d 69.5 27% 262.3 26% 255.1 83% 52.3 23% 48.1 42% 1295 59% 05/13/2024 32w 2d 80.9 48% 303.5 52% 296 84% 65 71% 57.3 80% 2223 78% Anatomy The following structures appear normal: Abdomen Stomach. Kidneys. Bladder. sex: female. Impression ========= 1) Braxton gestation, 32w2d 2) Biometry is consistent with appropriate growth 3) The amniotic fluid volume is within normal limits Follow-up ======== Follow-up ultrasound in ~4 weeks to reevaluate growth Coding ====== Procedures [id number]: US Preg Uterus Follow Up [facility] [employer] PACS Anatomical Region Laterality Modality Other 05/13/2024 1:22 PM CDT us Artem Quintero MD [facility] ORDERABLES Edited Result - Final from Last 3 Months Insurance ANTHEM Care Teams Block Cableman Relationship Specialty Start Date End Date Deepthi Garcia MD PCP - Pediatrics 12/13/08
[2024-06-30 17:09] LABS: Basophils Percent Auto 0.4 % (0.2-1.2); Eosinophils Absolute Auto 0.1 K/mm3 (0-0.3); Hemoglobin 11.1 g/dL (12.0-15.0); Immature Granulocyte Absolute 0.18 K/mm3 (0.00-0.031); Immature Granulocyte Percent A 1.8 % (0-0.5); Lymphocytes Absolute Auto 1.27 K/mm3 (0.9-3.2); Lymphocytes Percent Auto 12.8 % (18.3-44.2); Mean Corpuscular HGB Conc 30.8 g/dl (32-36); Mean Corpuscular Hemoglobin 25.5 pg (26-34); Mean Corpuscular Volume 82.8 fl (80-100); Mean Platelet Volume 11.1 fl (7.4-10.4); Monocytes Absolute Auto 0.7 K/mm3 (0.1-0.6); Monocytes Percent Auto 7.5 % (2.6-8.5); Neutrophils Absolute Auto 7.6 K/mm3 (1.3-6.7); Neutrophils Percent Auto 76.5 % (45.5-73.1); Platelet Count Result 202 k/mm3 (150-375); Red Blood Count 4.35 M/mm3 (4.2-5.4); Red Cell Distribution Width 14.7 % (11.5-14.5); White Blood Count 9.9 K/mm3 (4.5-10.0)
--- NOTE | 2024-06-30 17:12 | LDADM ---
This patient, Josefa Ceron, was admitted to Labor/Delivery/Recovery 105 on 06/30/24 at 16:44. Plans for labor, pain management and were discussed with patient. Patient/family oriented to hospital policies and general routines including ID bracelet, bed and alarms, visiting hours, pain management, procedures, bathroom and other care routines, personal items, smoking policy, room service/diet and guest tray routines, infant security routines, and visiting hours. Patient/Family are encouraged to report perceived risks to care and to ask questions if they do not understand what they are told or what they should do. See OBIX for further documentation.
[2024-06-30] MEDS: DINOPROSTONE 10 MG VAG INSERT VAGINAL (17:35)
[2024-06-30 17:53] LABS: Syphilis IgG/IgM Antibody Negative (Negative)
[2024-06-30 18:06] LABS: HIV 1/2 Ab P24 Ag Result Negative (Negative)
[2024-06-30] MEDS: fentaNYL CITRATE INJ (*CRX) 100 MCG/2 ML VIAL 50 MCG IV PUSH (23:38)
[2024-06-30] MEDS: LACTATED RINGERS 1,000 ML 125 ML IV CONT (23:54)
[2024-07-01] VITALS (281 sets, daily range): BP systolic 72–146; BP diastolic 36–100; PULSE 67–199; RESP 13–21; TEMP 36.1–37.8; O2SAT 92–100
--- NOTE | 2024-07-01 01:58 | WPDANESEPP ---
Anes - Eval Pre Procedure Procedure: Labor Epidural Date/Time: 07/01/24 01:58 Surgeon: zacarias Preop Diagnosis: Labor Pain Pre Op Diagnosis: IOL Patient Data Age: 28 Gender: F Height: 1.88 m Weight: 105 kg Last Vital Signs Pulse 82 07/01/24 01:29 BP 122/76 07/01/24 01:29 Pulse Ox 99 07/01/24 01:53 O2 Del Method Room Air 06/30/24 17:12 Allergies Allergy/AdvReac Type Severity Reaction Status Date / Time No Known Allergies Allergy Verified 02/21/24 15:17 Home Medications ?Medication ?Instructions ?Recorded ?Confirmed ?Type prenat.vits,lucho,ban-aori-mrril 1 tablet PO DAILY 07/11/22 06/10/24 History escitalopram oxalate 20 mg tablet 20 mg 02/21/24 History Laboratory Tests 06/30/24 17:04 WBC 9.9 K/mm3 (4.5-10.0) RBC 4.35 M/mm3 (4.2-5.4) Hgb 11.1 L g/dL (12.0-15.0) Hct 36.0 L % (37.0-47.0) MCV 82.8 fl (80-100) MCH 25.5 L pg (26-34) MCHC 30.8 L g/dl (32-36) RDW 14.7 H % (11.5-14.5) Plt Count 202 k/mm3 (150-375) MPV 11.1 H fl (7.4-10.4) Immature Gran % (Auto) 1.8 H % (0-0.5) Neut % (Auto) 76.5 H % (45.5-73.1) Lymph % (Auto) 12.8 L % (18.3-44.2) [place] % (Auto) 7.5 % (2.6-8.5) Eos % (Auto) 1.0 % (0-4.4) Baso % (Auto) 0.4 % (0.2-1.2) Lymph # (Auto) 1.27 K/mm3 (0.9-3.2) [place] # (Auto) 0.7 H K/mm3 (0.1-0.6) Eos # (Auto) 0.1 K/mm3 (0-0.3) Baso # (Auto) 0.0 K/mm3 (0.0-0.1) Abs Immat Gran (auto) 0.18 H K/mm3 (0.00-0.031) Absolute Neuts (auto) 7.6 H K/mm3 (1.3-6.7) Absolute Nucleated RBC 0.000 K/mm3 (0.0-0.012) Nucleated RBC % 0.0 % (0.0-0.2) Syphilis IgG/IgM Ab Negative (Negative) HIV 1&2 Ab/P24 Ag 4thGn Negative (Negative) Blood Type O Negative Antibody Screen Positive Antibody Identification Passive Due to RH Imm Glob Antigen Identification TNP DON, IgG Interpret Not Performed DON, Poly Interpret Neg DON, Complement Interp Not Performed : gestational age (, POOL 07/06/24) Patient hx anesthesia problems: none Family hx anesthesia problems: none Results Review: All pre-operative results and documents have been reviewed as part of the pre-operative evaluation. REPLACED BY [facility] Past Medical History Medical History Overweight (BMI 25.0-29.9) Anxiety and depression Migraines and not yet delivered Family History Family History Other Patient denies significant medical history Social History Social History Smoking status: Never smoker Substance use: never Do You Feel Safe in your Home?: No Lack of Transportation: No Lack of Food: Never True Current Housing: I Have Housing Concerned About Future Housing: No Difficulty Paying Gas/Electric Bills: No Difficulty Paying for Meds: No Currently Unemployed: No Education: Bachelor's Degree Difficulty w/ Childcare or Family Care: No Spiritual care concerns: No Exam Day of Procedure 07/01/24 01:58 Patient weight: overweight Heart: regular rate and rhythm Lungs: clear to auscultation Airway: Mallampati scale class II Neurological: alert and oriented
[2024-07-01] MEDS: LACTATED RINGERS 1,000 ML 125 ML IV CONT ×2 (02:30→06:24)
[2024-07-01] MEDS: TERBUTALINE SULFATE 1 MG/ML VIAL 0.25 MG SUB-Q (02:44)
[2024-07-01] MEDS: OXYTOCIN 30 UNITS/NS 500 ML 30 UNITS/500 ML BAG IV CONT ×2 (07:51→19:04)
--- NOTE | 2024-07-01 08:41 | WPDOBADMIT ---
Obstetrics - Admit Note Admission Note: record reviewed. Additions to the history and/or subsequent changes in the physical findings follow. 28 y/o at 39 2/7 weeks here for induction of labor. Cervidil overnight. This was removed by nurse after uterine tachysystole. She is currently comfortable with epidural, receiving oxytocin. GBS neg. significant for NIPT with low fraction. She had MFM consultation, several normal ultrasound exams, and declined amniocentesis. AVSS NST 150 reactive TOCO: Contractions every 3-5 min ABD soft, nontender, gravid, vertex EXT nontender Cervix 3/50/-2. AROM with clear fluid. Vertex. IUPC placed. A: IUP at term, here desiring induction of labor. P: Oxytocin. Anticipate .
[2024-07-01] MEDS: SODIUM CHLORIDE 0.9% IV 300 ML 600 ML I-UTERINE (12:02)
[2024-07-01] MEDS: SODIUM CHLORIDE 0.9% IV 1,000 ML 150 ML I-UTERINE (12:32)
--- NOTE | 2024-07-01 12:40 | PM.OBPNLAB ---
Pain Control Date/time seen: 07/01/24 12:40 Comments: Comfortable Pelvic Exam Dilation (cm): 4 Effacement (%): 80 station: -2 Contractions Contraction frequency: 5 Status status: Category l Comments: Had mild variable decelerations that responded to amnioinfusion and stopping oxytocin briefly (was at 10 mU/min.) Assessment and Plan Comments: Resume oxytocin.
--- NOTE | 2024-07-01 14:28 | PM.OBPRVD ---
OB - Vaginal Delivery Note Procedure Delivery date: 07/01/24 Induction method: Per Cervidil Protocol Delivery augmentation: Rupture of Membranes and Pitocin Delivery monitor: External FHT, External Uterine and Internal Uterine Route of delivery: Laceration Description: Perineal - 2nd Degree Delivery repair: vicryl (3-0) Specimen: Yes (cord blood) Quantitative Blood Loss (ml): 120 Anesthesia type: Epidural Disposition: PACU Complications: None Narrative: 28 y/o at 39 2/7 weeks gestation who presented to the hospital for induction of labor. Cervidil was placed overnight, then withdrawn. Oxytocin was administered intravenously. Amniotomy was performed with return of clear fluid. She received an epidural for pain control. Her labor progressed and her cervix dilated completely. She pushed with good effort and delivered the infant's head to the perineum, followed by the body. The nose and mouth were bulb suctioned. After a delay, the cord was clamped and cut. The infant was handed off the field. Cord blood was collected. The placenta delivered spontaneously and was grossly normal in appearance. The usual 3 vessel cord was noted. A second degree midline perineal laceration was sustained. This was reapproximated using 3 0 Vicryl in the usual layered fashion. Excellent hemostasis resulted as did excellent reapproximation of the normal anatomy. Needle and instrument counts were correct. The patient was taken to recovery room in stable condition. The went to the nursery in stable condition. I was present and scrubbed for the entire delivery. Baby Date of : 07/01/24 Time of : 14:09 Gestational Age by Date: 39 Infant gender: Female presentation: vertex position: Left Occiput Anterior Placenta delivery description: Spontaneous and Normal Configuration Cord Vessel Description: 3 Vessels and Delayed Cord Clamping
--- NOTE | 2024-07-01 14:31 | PM.OBDSVD ---
DS: Admitting Diagnosis Discharge Date 07/03/24 <Kelli Santa MD - Last Filed: 07/03/24 08:58> Admitting Diagnosis IUP at 39 2/7 weeks <Zeyad Cuenca MD - Last Filed: 07/06/24 04:36> DS: Discharge Diagnosis Discharge Diagnosis (1) (normal spontaneous vaginal delivery): Code(s): O80 - Encounter for full-term uncomplicated delivery <Zeyad Cuenca MD - Last Filed: 07/06/24 04:36> Status: Acute <Zeyad Cuenca MD - Last Filed: 07/06/24 04:36> (2) hemorrhage: Code(s): O72.1 - Other immediate hemorrhage <Zeyad Cuenca MD - Last Filed: 07/06/24 04:36> Status: Acute <Zeyad Cuenca MD - Last Filed: 07/06/24 04:36> (3) S/P D&C (status post dilation and curettage): Code(s): Z98.890 - Other specified postprocedural states <Zeyad Cuenca MD - Last Filed: 07/06/24 04:36> Status: Acute <Zeyad Cuenca MD - Last Filed: 07/06/24 04:36> OB - DS: Summary OB Procedures : None <Zeyad Cuenca MD - Last Filed: 07/06/24 04:36> OB Procedures Intrapartum: Spontaneous Vag Delivery <Zeyad Cuenca MD - Last Filed: 07/06/24 04:36> OB Procedures: : None and Transfusion <Zeyad Cuenca MD - Last Filed: 07/06/24 04:36> Curettage <Kelli Santa MD - Last Filed: 07/03/24 08:58> Peripartum Data Infant Delivery Method: Natural Vaginal <Kelli Santa MD - Last Filed: 07/03/24 08:58> Laceration Description: Perineal - 2nd Degree <Zeyad Cuenca MD - Last Filed: 07/06/24 04:36> complications: other (PP hemorrhage with anemia requiring D&C) <Kelli Santa MD - Last Filed: 07/03/24 08:58> Status at Discharge Functional status at discharge: independent ambulation <Kelli Santa MD - Last Filed: 07/03/24 08:58> Overall status at discharge: patient is progressing back to baseline <Kelli Santa MD - Last Filed: 07/03/24 08:58> Time Spent with Patient Time attestation: Total time spent providing and/or coordinating discharge services: <Zeyad Cuenca MD - Last Filed: 07/06/24 04:36> DS: Data Data Completed and Pending Labs on day of discharge: Labs from last 24 hours 06/30/24 17:04 WBC 9.9 RBC 4.35 Hgb 11.1 L Hct 36.0 L MCV 82.8 MCH 25.5 L MCHC 30.8 L RDW 14.7 H Plt Count 202 MPV 11.1 H Immature Gran % (Auto) 1.8 H Neut % (Auto) 76.5 H Lymph % (Auto) 12.8 L [place] % (Auto) 7.5 Eos % (Auto) 1.0 Baso % (Auto) 0.4 Lymph # (Auto) 1.27 [place] # (Auto) 0.7 H Eos # (Auto) 0.1 Baso # (Auto) 0.0 Abs Immat Gran (auto) 0.18 H Absolute Neuts (auto) 7.6 H Absolute Nucleated RBC 0.000 Nucleated RBC % 0.0 Syphilis IgG/IgM Ab Negative HIV 1&2 Ab/P24 Ag 4thGn Negative Blood Type O Negative Antibody Screen Positive Antibody Identification Passive Due to RH Imm Glob Antigen Identification TNP DON, IgG Interpret Not Performed DON, Poly Interpret Neg DON, Complement Interp Not Performed <Zeyad Cuenca MD - Last Filed: 07/06/24 04:36> Discharge Plan Discharge Attending physician on discharge: Zeyad Cuenca <Zeyad Cuenca MD - Last Filed: 07/06/24 04:36> Zeyad Cuenca <Kelli Santa MD - Last Filed: 07/03/24 08:58> Consulting providers: Tomi Mckeon; Malou Cardona; Amadou Conrad <Zeyad Cuenca MD - Last Filed: 07/06/24 04:36> Discharging Clinician: Kelli Santa <Zeyad Cuenca MD - Last Filed: 07/06/24 04:36> Kelli Santa <Kelli Santa MD - Last Filed: 07/03/24 08:58> Patient Disposition: Home <Zeyad Cuenca MD - Last Filed: 07/06/24 04:36> Activity: pelvic rest <Zeyad Cuenca MD - Last Filed: 07/06/24 04:36> pelvic rest <Kelli Santa MD - Last Filed: 07/03/24 08:58> Diet: regular <Zeyad Cuenca MD - Last Filed: 07/06/24 04:36> regular <Kelli Santa MD - Last Filed: 07/03/24 08:58> Discharge Instructions: Call or return if temperature above 100.4? F, increased abdominal pain, increased vaginal bleeding or any new problems. Education: Mom and Baby Guide Given to: Mother Follow-Up: Call your delivering provider's office for an appointment to be seen in: 4 Weeks Mom and baby should come to the [facility] for the follow-up appointment. Appointment Date/Time: July 05, 2024 at 11:00 am What to expect at your follow-up visit: Blood Pressure Check Physical Assessment Call [phone] if you are unable to keep your appointment time. BREAST CARE: * Wear a snug supportive bra. * For engorgement discomfort: Breast Feeding: * Apply warm moist washcloths * Express milk as needed to relieve engorgement * Wear loose clothing Bottle Feeding: * May apply ice packs * For sore nipples: * Identify correct latch-on * Apply warm moist washcloths before and after nursing * Air dry nipples after nursing * May apply Lansinoh cream to nipples EPISIOTOMY/PERINEAL CARE: * Until bleeding stops, use your duyen bottle after urinating * Change your pad frequently throughout the day * You may take sitz baths several times a day (fill your bathtub with warm water and soak for 20 minutes.) Do NOT bathe in the water * No tub baths until seen by your physician - You may shower ACTIVITY: * Rest as much as possible. * Do not exercise or lift anything heavier than your baby (such as laundry or other children.) * Avoid stairs or driving as much as possible. * Do not put anything into the vagina. No douching, tampons, or sexual activity until seen by physician. NOTIFY PHYSICIAN IF YOU HAVE ANY QUESTIONS OR IF ANY OF THE FOLLOWING SYMPTOMS OCCUR: * If your episiotomy or incision becomes red, swollen, or more painful than what you have experienced in the hospital. * If your vaginal bleeding becomes foul smelling. * If your vaginal bleeding becomes more heavy than a period or if your bleeding changes from pink to bright red. However, you may pass an occasional walnut-sized clot once or twice for the first week . * If you experience a sharp, shooting pain in you calves. * If you discover a hard, reddened area on your breast or if you experience flu-like symptoms. DIET: * Eat regular, well-balanced meals. * Drink plenty of fluids daily. If , drink to thirst. <Zeyad Cuenca MD - Last Filed: 07/06/24 04:36> Patient Language: Bangladeshi <Zeyad Cuenca MD - Last Filed: 07/06/24 04:36> Stand Alone Forms: General Discharge Information <Zeyad Cuenca MD - Last Filed: 07/06/24 04:36> Follow-up/Referrals: Zeyad Cuenca MD [Physician] - 6 Weeks <Zeyad Cuenca MD - Last Filed: 07/06/24 04:36> Discharge Medications: New ibuprofen 600 mg tablet 600 mg PO Q6H PRN (Reason: cramps) Qty: 30 0RF ferrous sulfate 325 mg (65 mg iron) tablet,delayed release (DR/EC) 325 mg PO DAILY Qty: 30 0RF Continued escitalopram oxalate 20 mg tablet 20 mg PO DAILY prenat.vits,lucho,ite-uipz-buduw Tablet 1 tablet PO DAILY <eZyad Cuenca MD - Last Filed: 07/06/24 04:36> Date of admission: 06/30/24 16:44 <Zeyad Cuenca MD - Last Filed: 07/06/24 04:36> Primary Care Provider: Irma,Hellen <Zeyad Cuenca MD - Last Filed: 07/06/24 04:36> Admitting Provider: Zeyad Cuenca <Zeyad Cuenca MD - Last Filed: 07/06/24 04:36> Attending physician on admission: Kelli Santa <Zeyad Cuenca MD - Last Filed: 07/06/24 04:36> Condition: Stable <Zeyad Cuenca MD - Last Filed: 07/06/24 04:36>
[2024-07-01] MEDS: OXYTOCIN 30 UNITS/NS 500 ML 30 UNITS/500 ML BAG 125 UNITS IV CONT ×3 (14:41→23:47)
[2024-07-01] MEDS: IBUPROFEN 600 MG TABLET PO ×2 (15:40→23:11)
[2024-07-01] MEDS: miSOPROStol 200 MCG TABLET 1000 MCG (15:52)
[2024-07-01] MEDS: HYDROcodone/acetaminophen (*CRX) 5-325 MG TABLET 1 TAB PO (15:56)
[2024-07-01 16:36] LABS: Basophils Percent Auto 0.1 % (0.2-1.2); Eosinophils Percent Auto 0.2 % (0-4.4); Hematocrit 31.2 % (37.0-47.0); Hemoglobin 9.6 g/dL (12.0-15.0); Immature Granulocyte Absolute 0.12 K/mm3 (0.00-0.031); Immature Granulocyte Percent A 1.2 % (0-0.5); Lymphocytes Absolute Auto 0.88 K/mm3 (0.9-3.2); Lymphocytes Percent Auto 9.1 % (18.3-44.2); Mean Corpuscular HGB Conc 30.8 g/dl (32-36); Mean Corpuscular Hemoglobin 25.7 pg (26-34); Mean Corpuscular Volume 83.4 fl (80-100); Mean Platelet Volume 11.1 fl (7.4-10.4); Monocytes Absolute Auto 0.7 K/mm3 (0.1-0.6); Monocytes Percent Auto 6.7 % (2.6-8.5); Neutrophils Percent Auto 82.7 % (45.5-73.1); Platelet Count Result 169 k/mm3 (150-375); Red Blood Count 3.74 M/mm3 (4.2-5.4); Red Cell Distribution Width 15.2 % (11.5-14.5); White Blood Count 9.7 K/mm3 (4.5-10.0)
[2024-07-01 16:46] LABS: Alanine Aminotransferase 15 U/L (6-35); Alkaline Phosphatase 133 U/L (38-126); Anion Gap 6 mmol/L (4-12); Aspartate Amino Transferase 24 U/L (14-36); Bilirubin,Total 0.5 mg/dL (0.2-1.3); Blood Urea Nitrogen 7 mg/dL (7-17); Calcium 8.3 mg/dL (8.4-10.2); Carbon Dioxide 20 mmol/L (22-30); Chloride 107 mmol/L (98-107); Estimated CRCL calculation 187 ml/min; Estimated Glomerular Filt Rate > 60; Glucose 81 mg/dL (65-110); Potassium 3.8 mmol/L (3.4-5.0); Sodium 133 mmol/L (137-145)
[2024-07-01 16:47] LABS: Prothrombin Time 13.7 Seconds (11.1-14.7)
[2024-07-01] MEDS: METHYLERGONOVINE MALEATE 0.2 MG/ML VIAL IM (16:47)
[2024-07-01 16:48] LABS: Partial Thromboplastin Time 25.2 Seconds (22.3-36.8)
[2024-07-01 16:49] LABS: Fibrinogen 425 mg/dl (215-510)
--- NOTE | 2024-07-01 16:53 | PM.OBPNVD ---
OB - PN: Subj Subjective Date/time seen: 07/01/24 16:53 Called to patient's room for bleeding. EBL now 1500 mL. She has received oxytocin and 1000mcg Cytotec IL. BP 120/70 with pulse 74 ABD: fundus firm and somewhat deviated to her right. Vaginal exam: clots expressed from vagina. Bedside ultrasound transabdominally shows empty uterus, intact myometrium, no free fluid. Stat Hgb 9.6 A: PP hemorrhage P: Add methergine 0.2 mg IM x 1. Plan to repeat hgb. OB - PN: Obj Data Labs 07/01/24 16:31 07/01/24 16:31 Labs: Laboratory Results - last 24 hr 06/30/24 07/01/24 17:04 16:31 WBC 9.9 9.7 RBC 4.35 3.74 L Hgb 11.1 L 9.6 L Hct 36.0 L 31.2 L MCV 82.8 83.4 MCH 25.5 L 25.7 L MCHC 30.8 L 30.8 L RDW 14.7 H 15.2 H Plt Count 202 169 MPV 11.1 H 11.1 H Immature Gran % (Auto) 1.8 H 1.2 H Neut % (Auto) 76.5 H 82.7 H Lymph % (Auto) 12.8 L 9.1 L [place] % (Auto) 7.5 6.7 Eos % (Auto) 1.0 0.2 Baso % (Auto) 0.4 0.1 L Lymph # (Auto) 1.27 0.88 L [place] # (Auto) 0.7 H 0.7 H Eos # (Auto) 0.1 0.0 Baso # (Auto) 0.0 0.0 Abs Immat Gran (auto) 0.18 H 0.12 H Absolute Neuts (auto) 7.6 H 8.0 H Absolute Nucleated RBC 0.000 0.000 Nucleated RBC % 0.0 0.0 Sodium 133 L Potassium 3.8 Chloride 107 Carbon Dioxide 20 L Anion Gap 6 BUN 7 Creatinine 0.52 L Estim Creat Clear Calc 187 Estimated GFR > 60 Glucose 81 Calcium 8.3 L Total Bilirubin 0.5 AST 24 ALT 15 Alkaline Phosphatase 133 H Total Protein 6.0 L Albumin 3.0 L Syphilis IgG/IgM Ab Negative HIV 1&2 Ab/P24 Ag 4thGn Negative Blood Type O Negative Antibody Screen Positive Antibody Identification Passive Due to RH Imm Glob Antigen Identification TNP DON, IgG Interpret Not Performed DON, Poly Interpret Neg DON, Complement Interp Not Performed OB - PN A/P Time Spent With Patient Time: Total time spent is greater than 50% in coordination of care (as documented) at patient's floor/unit and/or counseling patient:
[2024-07-01 17:18] LABS: D Dimer 1.82 ug/mL (<0.48)
--- NOTE | 2024-07-01 17:23 | P.PNOB_ITS ---
OB - PN: Subj Subjective Date/time seen: 07/01/24 17:23 Ave device placed without difficulty. Total QBL now 2100 mL. Pulse 75 BP 110/65 Continue to observe closely. OB - PN: Obj Data Labs 07/01/24 16:31 07/01/24 16:31 Labs: Laboratory Results - last 24 hr 06/30/24 07/01/24 17:04 16:31 WBC 9.9 9.7 RBC 4.35 3.74 L Hgb 11.1 L 9.6 L Hct 36.0 L 31.2 L MCV 82.8 83.4 MCH 25.5 L 25.7 L MCHC 30.8 L 30.8 L RDW 14.7 H 15.2 H Plt Count 202 169 MPV 11.1 H 11.1 H Immature Gran % (Auto) 1.8 H 1.2 H Neut % (Auto) 76.5 H 82.7 H Lymph % (Auto) 12.8 L 9.1 L [place] % (Auto) 7.5 6.7 Eos % (Auto) 1.0 0.2 Baso % (Auto) 0.4 0.1 L Lymph # (Auto) 1.27 0.88 L [place] # (Auto) 0.7 H 0.7 H Eos # (Auto) 0.1 0.0 Baso # (Auto) 0.0 0.0 Abs Immat Gran (auto) 0.18 H 0.12 H Absolute Neuts (auto) 7.6 H 8.0 H Absolute Nucleated RBC 0.000 0.000 Nucleated RBC % 0.0 0.0 PT 13.7 INR 1.0 APTT 25.2 Fibrinogen 425 D-Dimer 1.82 H Sodium 133 L Potassium 3.8 Chloride 107 Carbon Dioxide 20 L Anion Gap 6 BUN 7 Creatinine 0.52 L Estim Creat Clear Calc 187 Estimated GFR > 60 Glucose 81 Calcium 8.3 L Total Bilirubin 0.5 AST 24 ALT 15 Alkaline Phosphatase 133 H Total Protein 6.0 L Albumin 3.0 L Syphilis IgG/IgM Ab Negative HIV 1&2 Ab/P24 Ag 4thGn Negative Blood Type O Negative Antibody Screen Positive Antibody Identification Passive Due to RH Imm Glob Antigen Identification TNP DON, IgG Interpret Not Performed DON, Poly Interpret Neg DON, Complement Interp Not Performed OB - PN A/P Time Spent With Patient Time: Total time spent is greater than 50% in coordination of care (as documented) at patient's floor/unit and/or counseling patient:
[2024-07-01] MEDS: TRANEXAMIC ACID 1,000MG/ISO100 1,000 MG/100 ML BAG 200 MG IVPB (17:24)
[2024-07-01] MEDS: ceFAZolin 2 GM/D5W 50 ML 2 GM/50 ML BAG 100 GM (17:45)
--- NOTE | 2024-07-01 17:51 | PM.OBPNVD ---
OB - PN: Subj Subjective Date/time seen: 07/01/24 17:51 Patient coughed, Ave was expelled, and bleeding increased again. Now EBL 3000 mL. BP 80/60. Plan to transfuse 2 unites PRBC. Offered dilation and suction curettage. Reviewed risks, benefits and alternatives in detail. She agrees. OB - PN: Obj Data Labs 07/01/24 16:31 07/01/24 16:31 Labs: Laboratory Results - last 24 hr 06/30/24 07/01/24 17:04 16:31 WBC 9.7 RBC 3.74 L Hgb 9.6 L Hct 31.2 L MCV 83.4 MCH 25.7 L MCHC 30.8 L RDW 15.2 H Plt Count 169 MPV 11.1 H Immature Gran % (Auto) 1.2 H Neut % (Auto) 82.7 H Lymph % (Auto) 9.1 L [place] % (Auto) 6.7 Eos % (Auto) 0.2 Baso % (Auto) 0.1 L Lymph # (Auto) 0.88 L [place] # (Auto) 0.7 H Eos # (Auto) 0.0 Baso # (Auto) 0.0 Abs Immat Gran (auto) 0.12 H Absolute Neuts (auto) 8.0 H Absolute Nucleated RBC 0.000 Nucleated RBC % 0.0 PT 13.7 INR 1.0 APTT 25.2 Fibrinogen 425 D-Dimer 1.82 H Sodium 133 L Potassium 3.8 Chloride 107 Carbon Dioxide 20 L Anion Gap 6 BUN 7 Creatinine 0.52 L Estim Creat Clear Calc 187 Estimated GFR > 60 Glucose 81 Calcium 8.3 L Total Bilirubin 0.5 AST 24 ALT 15 Alkaline Phosphatase 133 H Total Protein 6.0 L Albumin 3.0 L Syphilis IgG/IgM Ab Negative HIV 1&2 Ab/P24 Ag 4thGn Negative Blood Type O Negative Antibody Screen Positive Antibody Identification Passive Due to RH Imm Glob Antigen Identification TNP DON, IgG Interpret Not Performed DON, Poly Interpret Neg DON, Complement Interp Not Performed OB - PN A/P Time Spent With Patient Time: Total time spent is greater than 50% in coordination of care (as documented) at patient's floor/unit and/or counseling patient:
--- NOTE | 2024-07-01 17:54 | WPDHPUPDATE1 ---
History and Physical Update Update Date/Time: 07/01/24 17:54 History and Physical has been reviewed, including an updated exam of the patient. There are NO changes in the patient's condition. Risks, benefits, and alternatives have been discussed and questions answered. Patient agrees to proceed with procedure.
--- NOTE | 2024-07-01 18:39 | P.OP_ITS ---
Procedure Note - Detailed Date of Procedure 07/01/24 Pre-op Diagnosis hemorrhage Post-op Diagnosis Same Procedure Performed Ultrasound guided curettage Surgeon Zeyad Cuenca MD Anesthesia General Findings Clotted blood and debris in the endometrial cavity Description of Procedure The patient was taken to the operating room where general endotracheal anesthesia was administered. She was prepared and draped in the usual sterile fashion in the dorsal lithotomy position. A wells catheter was already in place. A sterile speculum was placed into the vagina. The anterior lip of the cervix was grasped with a ring forceps. Under transabdominal ultrasound guidance, a curved tip suction curette was advanced. Suction curettage was performed and products of conception were aspirated. Sharp curettage was then performed until a good uterine cry was noted. A final pass with the suction curette was made. Hemostasis was adequate. Sponge, lap, needle and instrument counts were correct. The patient was taken to the recovery room in stable cond ition. I was present and scrubbed for the entire procedure. She received 2 units PRBC and 1 of FFP intraoperatively. Estimated Blood Loss 600 Urine Output 1,300 Drains Yes (wells) Packing No Pathology Yes (Endometrial curettings) Complications None Condition Stable Disposition PACU
[2024-07-01] MEDS: LACTATED RINGERS 1,000 ML 200 ML IV CONT (18:50)
--- NOTE | 2024-07-01 18:51 | P.PNAN_ITS ---
Anes - Initial Pre Proc Eval Procedure: Operation Date: 07/01/24 18:30 Proposed Procedures p D&C Suction and Sharp - Zeyad Cuenca MD Date/Time: 07/01/24 18:51 Surgeon: Zeyad Cuenca MD Pre Op Diagnosis: IOL Patient Data Age: 28 Gender: F Height: 1.88 m Weight: 105 kg Last Vital Signs Temp 98.1 F 07/01/24 13:41 Pulse 96 07/01/24 17:59 BP 116/69 07/01/24 17:59 Pulse Ox 97 07/01/24 17:58 O2 Del Method Room Air 06/30/24 17:12 Allergies Allergy/AdvReac Type Severity Reaction Status Date / Time No Known Allergies Allergy Verified 07/01/24 05:20 Home Medications ?Medication ?Instructions ?Recorded ?Confirmed ?Type prenat.vits,lucho,eby-hhlv-lemvc 1 tablet PO DAILY 07/11/22 06/10/24 History escitalopram oxalate 20 mg tablet 20 mg PO DAILY 02/21/24 07/01/24 History ferrous sulfate 325 mg (65 mg 325 mg PO DAILY #30 tabs 07/01/24 Rx iron) tablet,delayed release ibuprofen 600 mg tablet 600 mg PO Q6H PRN cramps #30 tabs 07/01/24 Rx Laboratory Tests 06/30/24 07/01/24 17:04 16:31 WBC 9.7 K/mm3 (4.5-10.0) RBC 3.74 L M/mm3 (4.2-5.4) Hgb 9.6 L g/dL (12.0-15.0) Hct 31.2 L % (37.0-47.0) MCV 83.4 fl (80-100) MCH 25.7 L pg (26-34) MCHC 30.8 L g/dl (32-36) RDW 15.2 H % (11.5-14.5) Plt Count 169 k/mm3 (150-375) MPV 11.1 H fl (7.4-10.4) Immature Gran % (Auto) 1.2 H % (0-0.5) Neut % (Auto) 82.7 H % (45.5-73.1) Lymph % (Auto) 9.1 L % (18.3-44.2) [place] % (Auto) 6.7 % (2.6-8.5) Eos % (Auto) 0.2 % (0-4.4) Baso % (Auto) 0.1 L % (0.2-1.2) Lymph # (Auto) 0.88 L K/mm3 (0.9-3.2) [place] # (Auto) 0.7 H K/mm3 (0.1-0.6) Eos # (Auto) 0.0 K/mm3 (0-0.3) Baso # (Auto) 0.0 K/mm3 (0.0-0.1) Abs Immat Gran (auto) 0.12 H K/mm3 (0.00-0.031) Absolute Neuts (auto) 8.0 H K/mm3 (1.3-6.7) Absolute Nucleated RBC 0.000 K/mm3 (0.0-0.012) Nucleated RBC % 0.0 % (0.0-0.2) PT 13.7 Seconds (11.1-14.7) INR 1.0 APTT 25.2 Seconds (22.3-36.8) Fibrinogen 425 mg/dl (215-510) D-Dimer 1.82 H ug/mL (<0.48) Sodium 133 L mmol/L (137-145) Potassium 3.8 mmol/L (3.4-5.0) Chloride 107 mmol/L (98-107) Carbon Dioxide 20 L mmol/L (22-30) Anion Gap 6 mmol/L (4-12) BUN 7 mg/dL (7-17) Creatinine 0.52 L mg/dL (0.7-1.0) Estim Creat Clear Calc 187 ml/min Estimated GFR > 60 (59 - ) Glucose 81 mg/dL (65-110) Calcium 8.3 L mg/dL (8.4-10.2) Total Bilirubin 0.5 mg/dL (0.2-1.3) AST 24 U/L (14-36) ALT 15 U/L (6-35) Alkaline Phosphatase 133 H U/L (38-126) Total Protein 6.0 L g/dL (6.3-8.2) Albumin 3.0 L g/dL (3.5-5.1) Blood Type O Negative Antibody Screen Positive Antibody Identification Passive Due to RH Imm Glob Antigen Identification TNP DON, Poly Interpret Neg Crossmatch See Detail : gestational age (, POOL 07/06/24) Patient hx anesthesia problems: none Family hx anesthesia problems: none Results Review: All pre-operative results and documents have been reviewed as part of the pre- operative evaluation. [facility] Past Medical History Medical History Overweight (BMI 25.0-29.9) Anxiety and depression Migraines and not yet delivered Family History Family History Other Patient denies significant medical history Social History Social History Smoking status: Never smoker Substance use: never Do You Feel Safe in your Home?: No Lack of Transportation: No Lack of Food: Never True Current Housing: I Have Housing Concerned About Future Housing: No Difficulty Paying Gas/Electric Bills: No Difficulty Paying for Meds: No Currently Unemployed: No Education: Bachelor's Degree Difficulty w/ Childcare or Family Care: No Spiritual care concerns: No Anes - Eval Final PreProcedure Day of Procedure 07/01/24 18:51 Patient weight: normal Lungs: normal air movement Airway: Mallampati scale class II Neurological: alert and oriented Last oral intake: >/= 8 hours ASA classification: II Emergent: yes Anesthetic plan: proceed Anesthesia type and monitoring: general ETT and standard monitoring Results Review: All pre-operative results and documents have been reviewed as part of the pre- operative evaluation. Emergent pt w hemorrhage to OR for emergent D and C. Pt w 3000ml blood loss prior to OR. Discussed w Dr Cuenca and Madeleine Cardona CRNA. This note entered late due to being in continuous contact w the pt from L and D to OR 5. Informed Consent: The patient's anesthetic plan and its attendant risks and benefits were discussed with the patient/family/POA. Questions were solicited and answers provided to the satisfaction of the patient/family/POA.
[2024-07-01] MEDS: LACTATED RINGERS 1,000 ML 30 ML IV CONT (19:02)
--- NOTE | 2024-07-01 19:03 | SUR.PHASEI ---
LABS DRAWN BY SAVANNAH MORRELL. FUNMILAYO ESCALANTE RN AT BEDSIDE ASSISTING WITH CARE.
[2024-07-01] MEDS: OXYTOCIN 30 UNITS/NS 500 ML 30 UNITS/500 ML BAG 125 UNITS (19:06)
[2024-07-01 19:12] LABS: Hematocrit 29.6 % (37.0-47.0); Hemoglobin 9.5 g/dL (12.0-15.0); Mean Corpuscular HGB Conc 32.1 g/dl (32-36); Mean Corpuscular Hemoglobin 27.1 pg (26-34); Mean Corpuscular Volume 84.6 fl (80-100); Mean Platelet Volume 11.5 fl (7.4-10.4); Platelet Count Result 160 k/mm3 (150-375); Red Cell Distribution Width 15.2 % (11.5-14.5); White Blood Count 10.6 K/mm3 (4.5-10.0)
[2024-07-01 19:21] LABS: Anion Gap 6 mmol/L (4-12); Blood Urea Nitrogen 7 mg/dL (7-17); Calcium 7.4 mg/dL (8.4-10.2); Carbon Dioxide 19 mmol/L (22-30); Chloride 108 mmol/L (98-107); Estimated CRCL calculation 170 ml/min; Estimated Glomerular Filt Rate > 60; Glucose 103 mg/dL (65-110); Potassium 5.4 mmol/L (3.4-5.0); Sodium 133 mmol/L (137-145)
[2024-07-01 19:22] LABS: Magnesium 1.5 mg/dL (1.6-2.3)
[2024-07-01 19:29] LABS: INR 1.1; Prothrombin Time 14.5 Seconds (11.1-14.7)
[2024-07-01 19:30] LABS: Fibrinogen 361 mg/dl (215-510)
[2024-07-01 19:35] LABS: D Dimer 1.22 ug/mL (<0.48)
--- NOTE | 2024-07-01 20:09 | SUR.PHASEI ---
LAB CALLED X2 RE: PENDING PTT; [employer] REPORTS EQUIPMENT PROBLEMS. 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
--- NOTE | 2024-07-01 20:13 | SUR.PHASEI ---
PITOCIN DRIP 30 UNITS IN 500 NS INFUSED AT RATE 125 ML/HOUR DURING PACU STAY.
--- NOTE | 2024-07-01 20:18 | SUR.PHASEI ---
OB RN STATES THEY WILL CALL DR. GARY WITH ALL LAB RESULTS.
[2024-07-01 20:28] LABS: Partial Thromboplastin Time 25.9 Seconds (22.3-36.8)
--- NOTE | 2024-07-01 20:30 | OBPPTRN ---
Patient transferred to post room #284 via stretcher. Report received from SPECIAL MACHINE OPERATOR. Oriented to unit, room, information board, rooming in, admission packet and security measures. Patient verbalizes understanding.
--- NOTE | 2024-07-01 20:36 | SUR.PHASEI ---
2020 LAB CALLED TO SAY THAT PTT RESULTS WOULD BE READY IN 5 MINUTES. ALL LAB RESULTS NOW IN. OB STAFF WILL CALL DR. GARY AND REMOVE EPIDURAL.
--- NOTE | 2024-07-01 21:42 | PC.NURSE ---
Discussed POC with patients and infant feeding goals. Mob expressed concerns with milk supply due to blood loss and low supply with first infant. Pump provided and education given on pumping schedule to mimic infants feeding schedule every 2-3 hours but to also prioritize rest and sleep overnight. Pt verbalized understanding. Pts parents at bedside as well as spouse for support. Pt wants to give formula for the night and is going to try to pump soon.
[2024-07-01] MEDS: ACETAMINOPHEN 325 MG TABLET 650 MG PO (23:11)
[2024-07-02] VITALS (10 sets, daily range): BP systolic 105–133; BP diastolic 55–79; PULSE 63–94; RESP 16–18; TEMP 36.3–37.2; O2SAT 97–100
[2024-07-02 05:21] LABS: Hemoglobin 7.3 g/dL (12.0-15.0)
[2024-07-02] MEDS: MULTIVIT/MIN/PREN/FOL AC/IRON TABLET 1 TAB PO (08:03)
[2024-07-02] MEDS: DOCUSATE SODIUM 100 MG CAPSULE PO (08:03)
[2024-07-02] MEDS: ESCITALOPRAM OXALATE 10 MG TABLET 20 MG PO (08:05)
[2024-07-02] MEDS: IBUPROFEN 600 MG TABLET PO ×2 (08:05→18:59)
[2024-07-02] MEDS: POLYSACCHARIDE IRON COMPLEX 150 MG CAPSULE PO ×2 (08:06→18:59)
--- NOTE | 2024-07-02 10:22 | P.PNOB_ITS ---
OB - PN: Subj Subjective Date/time seen: 07/02/24 10:22 Interval history: bit weak today Patient comments: no complaints, pain well controlled and tolerating diet baby status: doing well OB - PN: Obj Data Labs 07/02/24 04:54 07/01/24 19:06 Labs: Laboratory Results - last 24 hr 06/30/24 07/01/24 07/01/24 17:04 16:31 19:06 WBC 9.7 Cancelled RBC 3.74 L Hgb 9.6 L Hct 31.2 L MCV 83.4 MCH 25.7 L MCHC 30.8 L RDW 15.2 H Plt Count 169 MPV 11.1 H Immature Gran % (Auto) 1.2 H Neut % (Auto) 82.7 H Lymph % (Auto) 9.1 L Pike % (Auto) 6.7 Eos % (Auto) 0.2 Baso % (Auto) 0.1 L Lymph # (Auto) 0.88 L Pike # (Auto) 0.7 H Eos # (Auto) 0.0 Baso # (Auto) 0.0 Abs Immat Gran (auto) 0.12 H Absolute Neuts (auto) 8.0 H Absolute Nucleated RBC 0.000 Nucleated RBC % 0.0 % Immature Plt Fraction PT 13.7 INR 1.0 APTT 25.2 Fibrinogen 425 D-Dimer 1.82 H Sodium 133 L Potassium 3.8 Chloride 107 Carbon Dioxide 20 L Anion Gap 6 BUN 7 Creatinine 0.52 L Estim Creat Clear Calc 187 Estimated GFR > 60 Glucose 81 Calcium 8.3 L Magnesium Total Bilirubin 0.5 AST 24 ALT 15 Alkaline Phosphatase 133 H Total Protein 6.0 L Albumin 3.0 L Blood Type O Negative Antibody Screen Positive Antibody Identification Passive Due to RH Imm Glob Antigen Identification TNP DON, Poly Interpret Neg Screen Negative Baby's Blood Type O pos Baby's DON Positive Doses of RhIg Required 1 Crossmatch See Detail 07/01/24 07/01/24 07/01/24 19:06 19:06 19:06 WBC 10.6 H RBC Cancelled 3.50 L Hgb Cancelled 9.5 L Hct Cancelled MCV MCH MCHC RDW Plt Count MPV Immature Gran % (Auto) Neut % (Auto) Lymph % (Auto) Pike % (Auto) Eos % (Auto) Baso % (Auto) Lymph # (Auto) Pike # (Auto) Eos # (Auto) Baso # (Auto) Abs Immat Gran (auto) Absolute Neuts (auto) Absolute Nucleated RBC Nucleated RBC % % Immature Plt Fraction PT INR APTT Fibrinogen D-Dimer Sodium Potassium Chloride Carbon Dioxide Anion Gap BUN Creatinine Estim Creat Clear Calc Estimated GFR Glucose Calcium Magnesium Total Bilirubin AST ALT Alkaline Phosphatase Total Protein Albumin Blood Type Antibody Screen Antibody Identification Antigen Identification DON, Poly Interpret Screen Baby's Blood Type Baby's DON Doses of RhIg Required Crossmatch 07/01/24 07/01/24 07/01/24 19:06 19:06 19:06 WBC RBC Hgb Hct 29.6 L MCV Cancelled 84.6 MCH Cancelled 27.1 MCHC Cancelled RDW Plt Count MPV Immature Gran % (Auto) Neut % (Auto) Lymph % (Auto) Pike % (Auto) Eos % (Auto) Baso % (Auto) Lymph # (Auto) Pike # (Auto) Eos # (Auto) Baso # (Auto) Abs Immat Gran (auto) Absolute Neuts (auto) Absolute Nucleated RBC Nucleated RBC % % Immature Plt Fraction PT INR APTT Fibrinogen D-Dimer Sodium Potassium Chloride Carbon Dioxide Anion Gap BUN Creatinine Estim Creat Clear Calc Estimated GFR Glucose Calcium Magnesium Total Bilirubin AST ALT Alkaline Phosphatase Total Protein Albumin Blood Type Antibody Screen Antibody Identification Antigen Identification DON, Poly Interpret Screen Baby's Blood Type Baby's DON Doses of RhIg Required Crossmatch 07/01/24 07/01/24 07/01/24 19:06 19:06 19:06 WBC RBC Hgb Hct MCV MCH MCHC 32.1 RDW Cancelled 15.2 H Plt Count Cancelled 160 MPV Cancelled Immature Gran % (Auto) Neut % (Auto) Lymph % (Auto) Pike % (Auto) Eos % (Auto) Baso % (Auto) Lymph # (Auto) Pike # (Auto) Eos # (Auto) Baso # (Auto) Abs Immat Gran (auto) Absolute Neuts (auto) Absolute Nucleated RBC Nucleated RBC % % Immature Plt Fraction PT INR APTT Fibrinogen D-Dimer Sodium Potassium Chloride Carbon Dioxide Anion Gap BUN Creatinine Estim Creat Clear Calc Estimated GFR Glucose Calcium Magnesium Total Bilirubin AST ALT Alkaline Phosphatase Total Protein Albumin Blood Type Antibody Screen Antibody Identification Antigen Identification DON, Poly Interpret Screen Baby's Blood Type Baby's DON Doses of RhIg Required Crossmatch 07/01/24 07/02/24 19:06 04:54 WBC RBC Hgb 7.3 L Hct 23.0 L MCV MCH MCHC RDW Plt Count MPV 11.5 H Immature Gran % (Auto) Neut % (Auto) Lymph % (Auto) Pike % (Auto) Eos % (Auto) Baso % (Auto) Lymph # (Auto) Pike # (Auto) Eos # (Auto) Baso # (Auto) Abs Immat Gran (auto) Absolute Neuts (auto) Absolute Nucleated RBC Nucleated RBC % % Immature Plt Fraction Cancelled PT 14.5 INR 1.1 APTT 25.9 Fibrinogen 361 D-Dimer 1.22 H Sodium 133 L Potassium 5.4 H Chloride 108 H Carbon Dioxide 19 L Anion Gap 6 BUN 7 Creatinine 0.58 L Estim Creat Clear Calc 170 Estimated GFR > 60 Glucose 103 Calcium 7.4 L Magnesium 1.5 L Total Bilirubin AST ALT Alkaline Phosphatase Total Protein Albumin Blood Type Antibody Screen Antibody Identification Antigen Identification DON, Poly Interpret Screen Baby's Blood Type Baby's DON Doses of RhIg Required Crossmatch OB - PN A/P Assessment and Plan (1) (normal spontaneous vaginal delivery): Code(s): O80 - Encounter for full-term uncomplicated delivery Status: Acute (2) Anemia: Code(s): D64.9 - Anemia, unspecified Status: Acute Plan transfuse 1 unit. Time Spent With Patient Time: Total time spent is greater than 50% in coordination of care (as documented) at patient's floor/unit and/or counseling patient: Review of Systems 2 Review of Systems: CONSTITUTIONAL: Denies body aches, chills, or sweats.+ fever EYES: Denies visual changes, redness, or discharge. ENT: Denies sore throat, or otalgia.+ congestion, rhinorrhea CARDIOVASCULAR: Denies chest pain, palpitations, or edema. RESPIRATORY: + cough, shortness of breath GASTROINTESTINAL: Denies abdominal pain, nausea, vomiting, or diarrhea. GENITOURINARY: Denies dysuria or hematuria. SKIN: Denies rash, itching, or wounds. MUSCULOSKELETAL: Denies back pain, joint pain, or myalgia. NEUROLOGIC: Denies numbness, tingling, or weakness.+ headache PSYCH: Denies depression or anxiety. Exam 2 Narrative: GENERAL: Ill-appearing, well-nourished, and in no acute distress. HEAD: Normocephalic, atraumatic. EYES: EOMI. No redness or drainage. Conjunctivae normal. ENT: Mucous membranes pink and moist. Nares congested with rhinorrhea. TMs normal bilaterally. Throat normal. Uvula midline. NECK: Normal AROM. Supple. No lymphadenopathy. CHEST: No respiratory distress. Clear to auscultation. HEART: Regular rate and rhythm. No murmur appreciated. EXTREMITIES: Normal range of motion. No edema. SKIN: Warm, dry, no rash. Capillary refill normal. Normal skin turgor. NEURO: No focal deficits. Alert and oriented x3. Gait steady. PSYCH: Normal affect. No signs of depression or anxiety.
[2024-07-02] MEDS: RHO(D) IMMUNE GLOBULIN 300 MCG/2 ML SYRINGE IM (13:08)
[2024-07-02] MEDS: SODIUM CHLORIDE 0.9% IV 500 ML 125 ML (13:09)
--- NOTE | 2024-07-02 14:15 | PC.NURSE ---
Met with patient to offer services. Patient has had a complicated delivery and is receiving blood. She attempted with her first baby and this baby latched at the first feeding after delivery. Since she had a significant hemorrhage and had to go to the OR, baby has been taking formula. Mom is pumping intermittently. Encouraged her that pumping consistently is the best way to promote a good milk supply. She knows that there may be a delay in her milk coming in due to her large blood loss. She doesn't want to try to attempt putting baby to breast at this time. She states that once her milk is in she may try to breastfeed. She states that she is familiar with positioning and latching because she worked with a few consultants after she had her first baby. She is encouraged to call out for any assistance needed. RN updated.
[2024-07-03] MEDS: ESCITALOPRAM OXALATE 10 MG TABLET 20 MG PO (07:34)
[2024-07-03] MEDS: MULTIVIT/MIN/PREN/FOL AC/IRON TABLET 1 TAB PO (07:34)
[2024-07-03] MEDS: DOCUSATE SODIUM 100 MG CAPSULE PO (07:34)
[2024-07-03] MEDS: POLYSACCHARIDE IRON COMPLEX 150 MG CAPSULE PO (07:34)
[2024-07-03] MEDS: IBUPROFEN 600 MG TABLET PO (07:34)
[2024-07-03 08:42] VITALS: BP 124/70; PULSE 65; RESP 18; TEMP 36.4; O2SAT 99
--- NOTE | 2024-07-03 08:54 | P.PNOB_ITS ---
OB - PN: Subj Subjective Date/time seen: 07/03/24 08:54 Interval history: bit weak today Patient comments: no complaints, pain well controlled and other (No dizziness with ambulation) baby status: doing well OB - PN: Obj Data Labs 07/02/24 04:54 07/01/24 19:06 Labs: Laboratory Results - last 24 hr 06/30/24 17:04 Blood Type O Negative Antibody Screen Positive Antibody Identification Passive Due to RH Imm Glob Antigen Identification TNP DON, Poly Interpret Neg Screen Negative Baby's Blood Type O pos Baby's DON Positive Doses of RhIg Required 1 Crossmatch See Detail OB - PN A/P Assessment and Plan (1) hemorrhage: Code(s): O72.1 - Other immediate hemorrhage Status: Acute Assessment and Plan: s/p D&C doing well with normal pp bleeding no symptoms with anemia Plan Iron BID for 6 wks Plan day: 2 Plan: routine care, discharge home and follow up 6 weeks Time Spent With Patient Time: Total time spent is greater than 50% in coordination of care (as documented) at patient's floor/unit and/or counseling patient: Exam 2 : Bimanual exam- vagina & uterus: other (Uterus firm, nt @U)
[2024-07-05 11:28] VITALS: BP 118/63; PULSE 88; RESP 18; TEMP 36.6; O2SAT 100
== END 2024-07-03 12:24 | disposition home or self-care (01) | DRG 797 ==
LOC: ANHLDR 07-05 11:06 → ANHOB2 07-05 11:06
PROVIDERS: Obstetrics & Gynecology; Admitting Provider Obstetrics & Gynecology; Visit Provider Obstetrics & Gynecology Gynecology
PROC: 10E0XZZ Delivery of Products of Conception, External Approach (ICD-10-PCS; principal; 2024-07-01 18:30)
DX: O70.1 Second degree perineal laceration during delivery (principal); O72.1 Other immediate postpartum hemorrhage; Z37.0 Single live birth; O67.8 Other intrapartum hemorrhage; Z3A.39 39 weeks gestation of pregnancy
CPT/HCPCS: 36415; 36430; 80048; 80053; 83735; 85014; 85018; 85025; 85027; 85380; 85384; 85461; 85610; 85730; 86593; 86703; 86850; 86880; 86900; 86901; 86920; 88305; 90384; A9270; G0432; J0330; J0690; J1100; J2003; J2210; J2250; J2405; J2590; J2790; J2795; J3010; J3105; J7030; J7040; J7120; P9016; P9017

== ENCOUNTER 2024-08-24 10:55 | Emergency (ER) | payer BC, SELFPAY ==
--- NOTE | ~2024-08-24 | US_ITS ---
EXAMINATION: US pelvic complete DATE: 08/24/2024 13:50 INDICATION: Bleeding post with vaginal delivery nearly 2 months prior. TECHNIQUE: Multiple transabdominal and endovaginal sonographic images of the pelvis were obtained. COMPARISON: None. FINDINGS: The uterus measures 7.4 x 4.4 x 6.0 cm. The endometrial complex measures 1.9 cm mm in thickness. The re is a 2.4 x 1.9 x 2.4 cm echogenic region within the endometrial complex at the fundus which is wit hout internal vascular flow on color Doppler potentially representing clot. There are couple more dis cretely hyperechoic foci with some associated vascular flow on color Doppler along the lower uterine segment side of the echogenic region which does raise concern for retained products of conception. Th e right ovary measures 3.2 x 2.8 x 2.7 cm. The left ovary measures 2.9 x 2.0 x 2.1 cm. There is alex l vascular flow in the ovaries. There is no free fluid in the pelvis. IMPRESSION: 1. Prominent echogenic region potentially representing clot within the thickened endometrial complex at the fundus with vascular flow associated with a more hyperechoic focus more inferiorly towards the lower uterine segment which raises concern for retained products of conception. Reviewed, dictated and finalized at location B. IMPRESSION: 1. Prominent echogenic region potentially representing clot within the thickene d endometrial complex at the fundus with vascular flow associated with a more h yperechoic focus more inferiorly towards the lower uterine segment which raises concern for retained products of conception.
--- OUTSIDE RECORDS SUMMARY | 2024-08-24 11:05 | XMS_ITS | Data Portability ---
Author Organization [facility] IP [employer] [facility], [employer] Address [address] [place] [address] Care Team Providers Care Independent Insurance Adjuster Name Role Phone [employer] OTHER Unavailable [...] plan. F/U 12 weeks, sooner if needed [email or web address] Not available 11/28/2020 12:01:02 02/27/2021 02/27/2021 Medication [...] plan. F/U 12 weeks, sooner if needed [email or web address] Not available 02/27/2021 20:15:26 10/08/2021 10/08/2021 Medication [...] plan. F/U 12 weeks, sooner if needed [email or web address] Not available 10/08/2021 16:50:54 12/24/2021 12/24/2021 Medication [...] plan. F/U 1 year, sooner if needed [email or web address] Not available 12/24/2021 12:37:09 Plan of Treatment Reminders Order Date Submit Date Provider Last Modified By Organization Details Last Modified Time Details Appointments None recorded. Lab CBC 2021 [facility], [address] [place], [address], 07:30:41 CMP, serum or plasma 2021 [facility], [address] [place], [address], 07:30:40 Referral None recorded. Procedures None recorded. Surgeries None recorded. Imaging None recorded. Medication Orders buspirone 30 mg tablet 2021 [email or web address]06065, [address], [place], [id number], 4 21:49:40 sertraline 25 mg tablet 2021 [id number] #83996, [address], [place], [id number], 12:36:39 buspirone 30 mg tablet 2021 [facility] #82725, [address] [place], [place], [id number], 4 21:49:40 buspirone 15 mg tablet [email or web address] [facility]26443, [address], [place], [id number], 2 16:50:55 pseudoephed rine-guaife nesin ER 120 mg-1,200 mg tab,extend release 12hr 2020 022 [facility] #19808, [address], [place], [id number], 2 14:36:40 buspirone 15 mg tablet [address] [facility]44311, [address], [place], [id number], 16:50:55 Patient TargetsNo targets recorded. Patient InstructionsNo instructions recorded. Reason for Referral None Reported. Results Created Date Observation Date Name Description Value Unit Range Abnormal Flag Note LastModifiedBy Organization Detail LastModifiedTime 10/09/19 22 10/10/2021 COMPR EHENS TENZIN METAB OLIC PANEL glucose 77 mg/dL 65-99 normal Fasti ng refer ence inter marine Not Available [address], [address], 10/10/2021 07:30:40 10/09/19 22 10/10/2021 COMPR EHENS TENZIN METAB OLIC PANEL urea nitrogen (BUN) 15 mg/dL 7-25 normal Not Available [facility] [employer] [address], [address], 10/10/2021 07:30:40 10/09/19 22 10/10/2021 COMPR EHENS TENZIN METAB OLIC PANEL creatinine 0.84 mg/dL 0.50-0 .96 normal Not Available [facility] [address], [address], 10/10/2021 07:30:40 10/09/19 22 10/10/2021 COMPR EHENS TENZIN METAB OLIC PANEL eGFR 98 mL/mi n/1.7 3m2 > or = 60 normal The eGFR is based on the CKD-E PI 2020 equat ion. To calcu late the new eGFR from a previ ous Creat inine or Cysta tin C resul t, go to https ://myah w.jimena tafoya.o jose/pr zane sellers s/ kdoqi /gfr% 5Fcal culat or Not Available [address], [address], 10/10/2021 07:30:40 10/09/19 22 10/10/2021 COMPR EHENS TENZIN METAB OLIC PANEL BUN/creatini ne ratio NOT APPLIC ABLE (calc ) 6-22 Not Available [address], [address], 10/10/2021 07:30:40 10/09/19 22 10/10/2021 COMPR EHENS TENZIN METAB OLIC PANEL sodium 138 mmol/ L 135-14 6 normal Not Available [address], [address], 10/10/2021 07:30:40 10/09/19 22 10/10/2021 COMPR EHENS TENZIN METAB OLIC PANEL potassium 4.0 mmol/ L 3.5-5. 3 normal Not Available [address], [address], 10/10/2021 07:30:40 10/09/19 22 10/10/2021 COMPR EHENS TENZIN METAB OLIC PANEL chloride 103 mmol/ L 98-110 normal Not Available [address] [place], [address], 10/10/2021 07:30:40 10/09/19 22 10/10/2021 COMPR EHENS TENZIN METAB OLIC PANEL carbon dioxide 26 mmol/ L 20-32 normal Not Available [address], [address], 10/10/2021 07:30:40 10/09/19 22 10/10/2021 COMPR EHENS TENZIN METAB OLIC PANEL calcium 9.7 mg/dL 8.6-10 .2 normal Not Available [address], [address], 10/10/2021 07:30:40 10/09/19 22 10/10/2021 COMPR EHENS TENZIN METAB OLIC PANEL protein, total 6.9 g/dL 6.1-8. 1 normal Not Available [address], [address], 10/10/2021 07:30:40 10/09/19 22 10/10/2021 COMPR EHENS TENZIN METAB OLIC PANEL albumin 4.7 g/dL 3.6-5. 1 normal Not Available [address], [address], 10/10/2021 07:30:40 10/09/19 22 10/10/2021 COMPR EHENS TENZIN METAB OLIC PANEL globulin 2.2 g/dL_ (calc ) 1.9-3. 7 normal Not Available [address], [address], 10/10/2021 07:30:40 10/09/19 22 10/10/2021 COMPR EHENS TENZIN METAB OLIC PANEL albumin/glob ulin ratio 2.1 (calc ) 1.0-2. 5 normal Not Available [address], [address], 10/10/2021 07:30:40 10/09/19 22 10/10/2021 COMPR EHENS TENZIN METAB OLIC PANEL bilirubin, total 0.4 mg/dL 0.2-1. 2 normal Not Available [facility] [id number], [place], [address], 10/10/2021 07:30:40 10/09/19 22 10/10/2021 COMPR EHENS TENZIN METAB OLIC PANEL alkaline phosphatase 57 U/L 31-125 normal Not Available [facility] [employer] [address], [address], 10/10/2021 07:30:40 10/09/19 22 10/10/2021 COMPR EHENS ETNZIN METAB OLIC PANEL AST 19 U/L 10-30 normal Not Available [address], [address], 10/10/2021 07:30:40 10/09/19 22 10/10/2021 COMPR EHENS TENZIN METAB OLIC PANEL ALT 14 U/L 6-29 normal Not Available [address], [address], 10/10/2021 07:30:40 10/09/19 22 10/10/2021 CBC (H/H, RBC, INDIC ES, WBC, PLT) white blood cell count 7.3 thous and/u L 3.8-10 .8 normal Not Available [address], [address], 10/10/2021 07:30:41 10/09/19 22 10/10/2021 CBC (H/H, RBC, INDIC ES, WBC, PLT) red blood cell count 4.71 reagan on/uL 3.80-5 .10 normal Not Available [address], [address], 10/10/2021 07:30:41 10/09/19 22 10/10/2021 CBC (H/H, RBC, INDIC ES, WBC, PLT) hemoglobin 14.4 g/dL 11.7-1 5.5 normal Not Available [facility] [address], [address], 10/10/2021 07:30:41 10/09/19 22 10/10/2021 CBC (H/H, RBC, INDIC ES, WBC, PLT) hematocrit 45.1 % 35.0-4 5.0 high Not Available [address], [address], 10/10/2021 07:30:41 10/09/19 22 10/10/2021 CBC (H/H, RBC, INDIC ES, WBC, PLT) MCV 95.8 fL 80.0-1 00.0 normal Not Available [address], [address], 10/10/2021 07:30:41 10/09/19 22 10/10/2021 CBC (H/H, RBC, INDIC ES, WBC, PLT) MCH 30.6 pg 27.0-3 3.0 normal Not Available [address], [address], 10/10/2021 07:30:41 10/09/19 22 10/10/2021 CBC (H/H, RBC, INDIC ES, WBC, PLT) MCHC 31.9 g/dL 32.0-3 6.0 low Not Available [address], [address], 10/10/2021 07:30:41 10/09/19 22 10/10/2021 CBC (H/H, RBC, INDIC ES, WBC, PLT) RDW 12.8 % 11.0-1 5.0 normal Not Available [address], [address], 10/10/2021 07:30:41 10/09/19 22 10/10/2021 CBC (H/H, RBC, INDIC ES, WBC, PLT) platelet count 278 thous and/u L 140-40 0 normal Not Available [address], [address], 10/10/2021 07:30:41 10/09/1910/10/2021 CBC (H/H, RBC, INDIC ES, WBC, PLT) MPV 11.4 fL 7.5-12 .5 normal Not Available [facility] [address], [place], [address], 10/10/2021 07:30:41 Result Notes None recorded. Problems Name Problem SNOMED Code Status Onset Date Resolution Date Notes Provider Name and Address Organization Details Recorded Time Tension-typ e headache 254175580 Completed 201912/24/2021 Cherelle Whyte Jono OUTPATIENT PHLEBOTOMIST-BC, PMHNP-BC [address], [place], [address], [place] [facility] 16:20:44 Elevated blood-press ure reading without diagnosis of hypertensio n 550250074 Completed 201912/24/2021 Cherelle Whyte Jono OUTPATIENT PHLEBOTOMIST-BC, PMHNP-BC [address], [place], [address], [place] [facility] 2 16:20:46 COVID-19 883723164 Completed 201912/24/2021 Cherelle Whyte Jono OUTPATIENT PHLEBOTOMIST-BC, PMHNP-BC [address], [place], [address], [place] [facility] 2 16:20:50 Generalized anxiety disorder 13960580 Active 2021 Cherelle Whyte Jono OUTPATIENT PHLEBOTOMIST-BC, PMHNP-BC [address], [place], [address], [place] [facility] 2 12:06:44 Single episode of major depression in full remission 53346885 Completed 202112/24/2021 Cherelle Whyte Jono OUTPATIENT PHLEBOTOMIST-BC, PMHNP-BC [address], [place], [address], [place] [facility] 10/31/202 2 16:20:40 Anxiety 21158489 Active 2018 Cherelle De La Cruz, [facility], PMHN-BC [address] , [place], [address], [facility] 9 15:24:26 Acne 41760553 Completed 201812/24/2021 Cherelle De La Cruz [facility], [facility]- [address] , [place], [address], [facility] 16:20:53 Insomnia 032147481 Completed 201812/24/2021 Cherelle De La Cruz [facility], [facility]- [address] [place], [address], [facility] Care 16:21:00 Problem Notes None recorded. [...] [degF] 120 mm[Hg] 62 mm[Hg] Dee Ibarra [facility] Primary [facility] 2 19:39:18 Date Recorded Body height Body mass index (BMI) Body weight Heart rate Respiratory rate Oxygen saturation Oxygen saturation in Arterial blood by Pulse oximetry Body temperature Systolic blood pressure Diastolic blood pressure Provider Name and Address Organization Details Last Updated DateTime 2 187.96 cm 24 kg/m2 81942.7 7 g 64 /min 18 /min 99 % 99 % 98.1 [degF] 120 mm[Hg] 82 mm[Hg] Vernon Loya [facility] 2 12:41:19 Date Recorded Body height Heart rate Respiratory rate Oxygen saturation Oxygen saturation in Arterial blood by Pulse oximetry Body temperature Systolic blood pressure Diastolic blood pressure Provider Name and Address Organization Details Last Updated DateTime 1 187.96 cm 70 /min 20 /min 98 % 98 % 96.7 [degF] 116 mm[Hg] 92 mm[Hg] Cherelle De La Cruz, OUTPATIENT PHLEBOTOMIST-BC, PMHNP-BC [address] [place], [address], [facility] 1 12:01:15 Date Recorded Body height Oxygen saturation Oxygen saturation in Arterial blood by Pulse oximetry Body temperature Respiratory rate Heart rate Systolic blood pressure Diastolic blood pressure Provider Name and Address Organization Details Last Updated DateTime 2 187.96 cm 98 % 98 % 98.1 [degF] 20 /min 90 /min 112 mm[Hg] 80 mm[Hg] Sean Mc [facility] 2 13:10:37 Social History Question Answer Notes LastModified by Organizat ion Details LastModified Time Tobacco Smoking Status Never Smoker Not Available [facility] 12/21/2019 03:14:01 Do You Have An Advance Directive? No [id number] Information not available 12/21/2019 Do You Wear A Helmet When Biking? Yes [email or web address] Information not available 10/31/2020 Are You Blind Or Do You Have Difficulty Seeing? No [email or web address] Information not available 10/31/2020 What Is Your Level Of Caffeine Consumption? Moderate [id number] Information not available 12/21/2019 How Much Tobacco Do You Chew? None [id number] Information not available 12/21/2019 What Type Of Sign Writer Hand Do You Use? None [email or web address] Information not available 10/31/2020 What Is Your Code Status? Full Code [email or web address] Information not available 10/31/2020 Are You Deaf Or Do You Have Serious Difficulty Hearing? No [email or web address] Information not available 10/31/2020 What Type Of Diet Are You Following? REGULAR Information not available 10/31/2020 Which Illicit Or Recreational Drugs Have You Used? None [id number] Information not available 12/21/2019 What Is The Highest Grade Or Level Of School You Have Completed Or The Highest Degree You Have Received? [id number] [email or web address] Information not available 10/31/2020 Have There Been Any Changes To Your Family Or Social Situation? No [email or web address] Information no t available 10/31/2020 Are There Any Guns Present In Your Home? No [email or web address] Information not available 10/31/2020 Do You Use Insect Repellent Routinely? Yes [email or web address] Information not available 10/31/2020 Do You Have A Medical Power Of Engineering Test Specialist? No Information not available 10/31/2020 What Was The Date Of Your Most Recent Tobacco Screening? 10/31/2020 [email or web address] Information not available 10/31/2020 Do You Have Any Pets? Yes [email or web address] Information not available 10/31/2020 What Is Your Relationship Status? Domestic Partner [email or web address] Information not available 10/31/2020 Do You Use Your Seat Belt Or Car Seat Routinely? Yes [email or web address] Information not available 10/31/2020 Are You Sexually Active? Yes [email or web address] Information not available 10/31/2020 Do You Have Smoke And Carbon Monoxide Detectors In Your Home? Yes Information not available 10/31/2020 Are You Passively Exposed To Smoke? No Information no t available 10/31/2020 How Much Tobacco Do You Smoke? No [id number] Information not available 12/21/2019 Do You Use Sunscreen Routinely? Yes [email or web address] Information not available 10/31/2020 How Many Years Have You Smoked Tobacco? 0 [id number] Information not available 12/21/2019 Do You Have Difficulty Walking Or Climbing Stairs? No Information not available 10/31/2020 Are You Currently In School? No [email or web address] Information not available 10/31/2020 Do You Have Any Dietary Restrictions? No [email or web address] Information not available 10/31/2020 Sex: Female Functional Status Question Answer Note LastModified by [employer] ion Details LastModified Time Do you or have you ever used smokeless tobacco? Never used smokeless tobacco [id number] Information not available 12/21/2019 Are you currently employed? Yes [email or web address] Information not available 10/31/2020 Do you have transportation difficulties? No [email or web address] Information not available 10/31/2020 Are you able to care for yourself? Yes [email or web address] Information n ot available 10/31/2020 Do you have difficulty dressing or bathing? No Information not available 10/31/2020 Do you or have you ever used e-cigarettes or vape? Never used electronic cigarettes [id number] Information not available 12/21/2019 What is your exercise level? Moderate [id number] Information not available 12/21/2019 Do you use any illicit or recreational drugs? No [email or web address] Information not available 10/31/2020 Do you or have you ever used any other forms of tobacco or nicotine? No [email or web address] Information not available 10/31/2020 What is your level of alcohol consumption? Occasional [id number] Information not available 12/21/2019 Are you able to walk? YESWOREST [id number] Information not available 12/21/2019 Do you have difficulty doing errands alone? No [email or web address] Information not available 10/31/2020 What is your occupation? [employer] [id number] Information not available 12/21/2019 Mental Status Question Answer Note LastModified by Organizat ion Details LastModified Time Do you feel stressed (tense, restless, nervous, or anxious, or unable to sleep at night)? [id number] [email or web address] Information not available 10/31/2020 Do you have difficulty concentrating, remembering or making decisions? No Information no t available 10/31/2020 Family History Relationship Description Onset Age of this Age Resolved Age Notes LastModified by Organization Details LastModified Time Father Essential hypertension [email or web address] Not available 10:56:40 Father Anxiety disorder [email or web address] Not available 2018 10:56:46 Paternal Grandmother Malignant tumor of breast [email or web address] Not available 2018 10:57:12 Paternal Grandfather Alzheimer's disease [email or web address] Not available 2018 10:57:21 Paternal Uncle Cerebrovascu lar accident Not available 10:57:30 Maternal Grandfather Diabetes mellitus [email or web address] Not available 2018 10:57:50 Medical History Condition Response Anxiety Disorder Y Hypertension Y Gynecological HistoryNo gynecological history recorded. Obstetrics History GPAL:G 0 P 0 0 0 0 Immunizations Vaccine Type Date Status Note Provider Nam e and Address Organization Details Recorded Time Influenza, split virus, quadrivalent, PF 12/07/2020 completed Not Available [facility] 18:45:07 Influenza, split virus, quadrivalent, PF 12/03/[address] [facility] 12/03/2019 18:49:23 Past Encounters Encounter ID Performer Location Encounter Start Date Encounter Closed Date Diagnosis/Indication Diagnosis SNOMED-CT Code Diagnosis ICD10 Code Diagnosis Note [id number] Cherelle De La Cruz, OUTPATIENT PHLEBOTOMIST-BC, PMHNP-BC Main Office [address] [facility] [place] [address] 12/16/2018 10:36:09 12/17/2018 08:52:44 Major depressive disorder 990078212 F32.9 Insomnia 302883279 G47.0 0 Adult heal th examination 616893951 Z00.00 Fatigue 34955373 R53.83 Will check Thyroid levels to r/o Thyroid vs possible increase in depression . Vitamin D deficiency 347 67822 E55.9 [id number] DWIGHT [facility] Main Office [address] [place] [address] 03/11/2019 08:33:32 03/11/2019 12:13:22 Major depressive disorder 735341146 F32.9 Insomnia 750372428 G47.0 0 Acute sinusitis 80083040 J01.90 Finishing up medication s. Resolving. [id number] NEFTALI [facility] Main Office [address] [place] [address] 06/16/2019 08:22:11 06/16/2019 16:11:11 Major depressive disorder 061993560 F32.9 Controlled . Continue regimen. Essential hypertension 91913575 I10 BP much better at visit. Will monitor. Tension-type headache 39 9158298 G44.209 [id number] PARAG Byrd, [facility] Main Office [address] [place] [address] 12/03/2019 12:40:26 12/03/2019 15:53:15 Major depressive disorder 891106356 F32.9 Controlled . Continue regimen. Tension-type headache 39 9554799 G44.209 Elevated blood-pressure reading without diagnosis of hypertension 543350938 R03.0 Much better. Will monitor. COVID-19 881201252 U07.1 Given cocktail in between visits and doing much better. Counseled on the unknowns care home with COVID, but to start slow when getting back into exercising . Administra tion of influenza vaccine 87903313 Z23 [id number] DREA Byrd, [facility] Main Office [address] [place] [address] 05/17/2020 06:34:26 05/18/2020 09:26:28 Major depressive disorder 396110793 F32.9 Controlled . Continue regimen. Tension-type headache 39 2213875 G44.209 Controlled , but has made some lifestyle modificati ons and wants to try coming off medication . Weaning protocol given and explained. [id number] DREA [facility] [address] [place] [address] 10/31/2020 06:43:42 10/31/2020 13:18:47 Major depressive disorder 068074780 F32.9 Anxiety 53825416 F41.9 [id number] Cherelle De La Cruz [facility], [facility] Main Office [address] [place] [address] 11/28/2020 06:44:09 11/28/2020 12:11:35 Anxiety 14394528 F41.9 Acute fron logan sinusitis 79024881 J01.10 [id number] Cherelle De La Cruz [facility], [facility] Main Office [address] [place] [address] 12/07/2020 17:03:26 12/07/2020 18:19:13 Administration of influenza vaccine 06999301 Z23 [id number] Cherelle De La Cruz [facility], [facility] Main Office [address] [place] [address] 02/27/2021 08:29:59 02/27/2021 20:34:41 Anxiety 74534891 F41.9 Doing much better with the changes in medication . Continue regimen. [id number] Cherelle De La Cruz [facility], [facility] [employer] [address] [place] [address] 10/08/2021 10:53:39 10/08/2021 16:58:56 Anxiety 00840234 F41.9 Increasing Buspirone given decreasing Sertraline to stop. Single epi sode of major depression in full remission 73442239 F32.5 Weaning medication to stop. Doing very well. [id number] Cherelle De La Cruz [facility], [facility] [employer] [address] [place] [id number] 12/24/2021 06:57:56 12/24/2021 18:09:08 Anxiety 10289599 F41.1 Continue Buspirone as this is providing a benefit. Doing very well off sertraline . Health Concerns Section Related Observation LastModified by Organization Detai ls LastModified Time None Recorded Concern Status LastModified by Organization Details LastModified Time None Recorded Advance Directives Directive N: Payers Insurance Date Sequence Insurance Name Policy Number Policy Gaffney Covered Member ID Gaffney Member ID Guarantor Name 12/25/2021 1 [facility] [id number] Josefa Kennedy [id number] Josefa Kennedy Notes Date Note Type Note [...] good; no apathy; maintaining functionality;anxietyS inusitis/AllergyReport ed bypatient.Location:[facility] Quality:no itching;weak voice;hoarseness;achin g;congested;pounding Severity:no nosebleeds (epistaxis); [...] no HIV; no immunodeficiency Cherelle De La CruzDREA, [facility] [address] [facility] 11/28/2020 12:02:17 02/27/2021 text/html Anxiety/Depressi onRepo rted [...] good; energy good; no apathy; maintaining functionality Cherelle Whyte PARAG De La Cruz, [facility] [address], [facility] 02/27/2021 20:15:48 10/08/2021 text/html Anxiety/Depressi onRepo rted [...] good; energy good; no apathy; maintaining functionality Cherelle Whyte PARAG De La Cruz, [facility] [address] [facility] 10/08/2021 16:52:48 12/24/2021 text/html Anxiety/Depressi [...] good; energy good; no apathy; maintaining functionality Cherelle De La Cruz, OUTPATIENT PHLEBOTOMIST-BC, PMHNP-BC [address] [place], [address], [facility] 12/24/2021 16:21:16 OBGyn Episode No OBEpisode recorded.
--- OUTSIDE RECORDS SUMMARY | 2024-08-24 11:05 | XMS_ITS | Clinical Summary ---
Author Organization [facility] Address [address] [facility] [place] [address] Care Team Providers Care Mri Technician Name Role Phone Deepthi Garcia MD Unavailable Source Comments [facility],non-owned Affiliates and Associated Physician Practices is amultiple site organization consisting of ambulatory clinics and hospital sitesin [place], [place], [place] and [place]. This disclosure is being madepursuant to the Care Everywhere program and may not contain all information available regarding this patient. 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 Gender Identity Not on file Sexual Orientation [...] P M CDT Height 180.3 cm (5' 11) 09/28/2010 3:26 PM CDT Body Mass Index 20.25 09/28/2010 3:26 PM CDT Plan of Treatment Health Maintenance Due Date Last Done Comments HIV SCREENING 2009 HEPATITIS C SCREENING 09/06/2012 PAP SMEAR 09/12/2015 DTAP/TDAP/TD VACCINES (7 - Td or Tdap) 09/05/2016 09/05/2006, 07/30/1999, 05/07/1996, Additional history exists COVID-19 VACCINE ( season) 2023 DEPRESSION SCREENING 02/25/2024 OB-ONE HOUR GLUCOSE 03/30/2024 OB-TDAP CURRENT 04/06/2024 05/30/2022, OB-RHOGAM INJECTION 04/13/2024 OB-GROUP B STREP SCREEN [...] over 60 yrs (No Doses Required) Completed Insurance [facility] Address: [address] [place] [address] SELF PAY NO INSURANCE Member Subscriber Plan / Payer (Ef fective for All Dates) Name:Josefa Hart Member ID:Not on file Relation to Subscriber:Not on file Name:JOSEFA HART Subscriber ID:Not on file (Home) Address: [facility] Deyvi Rosas [facility] [address] [place] [id number] Payer ID:Not on file Group ID:Not on file Type:Self Pay Address: [place], [place] Care Teams Mri Technician Relationship Specialty Start Date End Date Deepthi Garcia MD PCP - Pediatrics 12/13/08
[2024-08-24 11:26] VITALS: BP 125/68; PULSE 60; RESP 16; TEMP 36.8; O2SAT 99
--- OUTSIDE RECORDS SUMMARY | 2024-08-24 12:38 | XMS_ITS | Clinical Summary ---
Author Organization [facility] Address [address] [facility] [place] [address] Care Team Providers Care Brick Tosser Name Role Phone Deepthi Garcia MD Unavailable Source Comments [facility],non-owned Affiliates and Associated Physician Practices is amultiple site organization consisting of ambulatory clinics and hospital sitesin [place], [place], [place] and [place]. This disclosure is being madepursuant to the Care Everywhere program and may not contain all information available regarding this patient. 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 Gender Identity Not on file Sexual Orientation [...] yrs (No Doses Required) Completed Insurance [employer] SELF PAY NO INSURANCE Member Subscriber Plan / Payer (Ef fective for All Dates) Name:Josefa Hart Member ID:Not on file Relation to Subscriber:Not on file Name:JOSEFA HART Subscriber ID:Not on file (Home) Address: [facility] Deyvi Rosas [facility] [address] [place] [id number] Payer ID:Not on file Group ID:Not on file Type:Self Pay Address: [place], [place] Care Teams Brick Tosser Relationship Specialty Start Date End Date Deepthi Garcia MD PCP - Pediatrics 12/13/08
[2024-08-24 13:25] LABS: Hematocrit 38.8 % (37.0-47.0); Hemoglobin 11.9 g/dL (12.0-15.0); Immature Granulocyte Percent A 0.7 % (0-0.5); Lymphocytes Absolute Auto 2.35 K/mm3 (0.9-3.2); Mean Corpuscular HGB Conc 30.7 g/dl (32-36); Mean Corpuscular Hemoglobin 24.8 pg (26-34); Mean Corpuscular Volume 81.0 fl (80-100); Nucleated Red Blood Cells Absolute Auto 0.000 K/mm3 (0.0-0.012); Nucleated Red Blood Cells Perc 0.0 % (0.0-0.2); Platelet Count Result 267 k/mm3 (150-375); Red Blood Count 4.79 M/mm3 (4.2-5.4); White Blood Count 5.8 K/mm3 (4.5-10.0)
[2024-08-24 13:34] LABS: Alanine Aminotransferase 25 U/L (6-35); Albumin Level 4.8 g/dL (3.5-5.1); Alkaline Phosphatase 69 U/L (38-126); Anion Gap 9 mmol/L (4-12); Aspartate Amino Transferase 30 U/L (14-36); Bilirubin,Total 0.3 mg/dL (0.2-1.3); Blood Urea Nitrogen 14 mg/dL (7-17); Calcium 9.8 mg/dL (8.4-10.2); Carbon Dioxide 26 mmol/L (22-30); Chloride 105 mmol/L (98-107); Estimated Glomerular Filt Rate > 60; Glucose 85 mg/dL (65-110); Potassium 4.3 mmol/L (3.4-5.0); Sodium 140 mmol/L (137-145); Total Protein 7.8 g/dL (6.3-8.2)
[2024-08-24 13:40] LABS: INR 1.0; Prothrombin Time 12.9 Seconds (11.1-14.7)
[2024-08-24 13:41] LABS: Partial Thromboplastin Time 26.8 Seconds (22.3-36.8)
--- NOTE | 2024-08-24 14:09 | ED.FEMALEGU ---
HPI - Female Genitourinary General Chief complaint: Vaginal Bleeding Stated complaint: vaginal bleeding after giving 2 mos ago Time Seen by Provider: 08/24/24 12:04 Source: patient Mode of arrival: ambulatory Limitations: no limitations History of Present Illness HPI Narrative: Patient is a 28-year-old female who presents the ED with report of vaginal bleeding. Patient reports she underwent vaginal delivery on 07/01. She states she lost approximately 4 L of blood in hemorrhage. She underwent emergent D&C same day. OBGYN is Dr. Cuenca. She reports she has had persistent vaginal bleeding since then which she felt was normal . She then began having heavier bleeding yesterday and today. Denies significant blood clots. Does feel slightly lightheaded today. Denies abdominal pain, nausea, vomiting, fevers. Related Data Home Medications ?Medication ?Instructions ?Recorded ?Confirmed ?Last Taken ?Type prenat.vits,lucho,tzo-zsot-hqfvj 1 tablet PO DAILY 07/11/22 06/10/24 06/10/24 08:00 History escitalopram oxalate 20 mg tablet 20 mg PO DAILY 02/21/24 07/01/24 06/10/24 08:00 History Allergies Allergy/AdvReac Type Severity Reaction Status Date / Time No Known Allergies Allergy Verified 08/24/24 11:29 Review of Systems Review of Systems: All systems reviewed & are unremarkable except as noted in HPI. All systems reviewed & are unremarkable except as noted in HPI and below PMFSH Past Medical History Medical History Overweight (BMI 25.0-29.9) Anxiety and depression Migraines and not yet delivered Family History Family History Other Patient denies significant medical history Social History Social History Smoking status: Never smoker Substance use: never Do You Feel Safe in your Home?: No Lack of Transportation: No Lack of Food: Never True Current Housing: I Have Housing Concerned About Future Housing: No Difficulty Paying Gas/Electric Bills: No Difficulty Paying for Meds: No Currently Unemployed: No Education: Bachelor's Degree Difficulty w/ Childcare or Family Care: No Spiritual care concerns: No Exam Narrative: GENERAL: Well appearing, well-nourished, non-toxic, in no acute distress. HEAD: Normocephalic, atraumatic. RESPIRATORY: Airway patent, respirations nonlabored. Clear to auscultation bilaterally, no rales, rhonchi, wheezing. CARDIOVASCULAR: Regular rate and rhythm without murmurs, rubs, or gallops. ABDOMINAL: Soft, no significant tenderness throughout abdomen, nondistended. Normoactive BS. MUSCULOSKELETAL: Moves all extremities. No gross deformities. SKIN: Warm, dry, normal color. NEURO: A&O X3. Speech clear. Cranial nerves II-XII grossly intact. Steady gait. No ataxic movements. PSYCHIATRIC: Appropriate mood and affect. Normal interaction. Course Vital Signs Vital signs: Vital Signs Temperature 98.2 F 08/24/24 11:26 Pulse Rate 60 08/24/24 11:26 Respiratory Rate 16 08/24/24 11:26 Blood Pressure 125/68 08/24/24 11:26 Pulse Oximetry 99 08/24/24 11:26 Temperature 98.2 F 08/24/24 11:26 Pulse Rate 60 08/24/24 11:26 Respiratory Rate 16 08/24/24 11:26 Blood Pressure 125/68 08/24/24 11:26 Pulse Oximetry 99 08/24/24 11:26 MDM - Female Genitourinary MDM Narrative Medical decision making narrative: Patient presented to ED with vaginal bleeding. Approximately 2 months . Bleeding became heavier today. Vital signs stable upon arrival. No evidence of hemodynamic instability. CBC with stable H&H. Hemoglobin 11.9. Stable hematocrit. Nml platelets. CMP unremarkable. UA with large amount of RBC, no signs of infection. Pelvic ultrasound obtained: IMPRESSION: 1. Prominent echogenic region potentially representing clot within the thickened endometrial complex at the fundus with vascular flow associated with a more hyperechoic focus more inferiorly towards the lower uterine segment which raises concern for retained products of conception. Discussed patient presentation and ultrasound findings with BENITA Conley offset plate preparation supervisor for Dr. Cuenca, advised given reassuring labs/H&H, safe for d/c home and to contact Dr. Cuenca first thing in the morning to schedule D&C. Recommended she stay NPO after midnight. Discussed these recommendations with patient. She is in agreement with plan and discharge home at this time. Discussed strict return precautions. She voiced understanding. Discharged in stable condition. Medical Records Attestation: I reviewed the patient's medical records. Lab Data Attestation: I reviewed the patient's lab results. 08/24/24 13:17 08/24/24 13:17 Labs: Lab Results 08/24/24 08/24/24 08/24/24 Range/Units 13:16 13:17 14:40 WBC 5.8 (4.5-10.0) K/mm3 RBC 4.79 (4.2-5.4) M/mm3 Hgb 11.9 L D (12.0-15.0) g/dL Hct 38.8 (37.0-47.0) % MCV 81.0 (80-100) fl MCH 24.8 L (26-34) pg MCHC 30.7 L (32-36) g/dl RDW 15.3 H (11.5-14.5) % Plt Count 267 D (150-375) k/mm3 MPV 9.8 (7.4-10.4) fl Immature Gran % (Auto) 0.7 H (0-0.5) % Neut % (Auto) 39.5 L (45.5-73.1) % Lymph % (Auto) 40.9 (18.3-44.2) % [place] % (Auto) 8.3 (2.6-8.5) % Eos % (Auto) 9.9 H (0-4.4) % Baso % (Auto) 0.7 (0.2-1.2) % Lymph # (Auto) 2.35 (0.9-3.2) K/mm3 [place] # (Auto) 0.5 (0.1-0.6) K/mm3 Eos # (Auto) 0.6 H (0-0.3) K/mm3 Baso # (Auto) 0.0 (0.0-0.1) K/mm3 Abs Immat Gran (auto) 0.04 H (0.00-0.031) K/mm3 Absolute Neuts (auto) 2.3 (1.3-6.7) K/mm3 Absolute Nucleated RBC 0.000 (0.0-0.012) K/mm3 Nucleated RBC % 0.0 (0.0-0.2) % PT 12.9 (11.1-14.7) Seconds INR 1.0 APTT 26.8 (22.3-36.8) Seconds Sodium 140 (137-145) mmol/L Potassium 4.3 (3.4-5.0) mmol/L Chloride 105 (98-107) mmol/L Carbon Dioxide 26 (22-30) mmol/L Anion Gap 9 (4-12) mmol/L BUN 14 D (7-17) mg/dL Creatinine 0.78 (0.7-1.0) mg/dL Estim Creat Clear Calc Not Reportable Estimated GFR > 60 (59 - ) Glucose 85 (65-110) mg/dL Calcium 9.8 (8.4-10.2) mg/dL Total Bilirubin 0.3 (0.2-1.3) mg/dL AST 30 (14-36) U/L ALT 25 (6-35) U/L Alkaline Phosphatase 69 (38-126) U/L Total Protein 7.8 (6.3-8.2) g/dL Albumin 4.8 (3.5-5.1) g/dL Beta HCG, Quant < 2.39 mIU/ML Urine Color Yellow (Yellow) Urine Appearance Clear (Clear) Urine pH 6.5 (5.0-9.0) Ur Specific [place] 1.013 (1.001-1.035) Urine Protein Negative (Negative) mg/dL Urine Glucose (UA) Negative (Negative) mg/dL Urine Ketones Negative (Negative) mg/dL Ur Blood (Man) 3+ H (Negative) Urine Nitrate Negative (Negative) Urine Bilirubin Negative (Negative) Urine Urobilinogen 0.2 (<2.0) mg/dL Leukocyte Esterase Rfl Trace H (Negative) GIA/UL Urine RBC >100 H (0-2) /hpf Urine WBC 0-5 (0-3) /hpf Ur Squamous Epith Cells None seen (Few) /hpf Urine Bacteria None seen /hpf Urine Casts 0-2 Blood Type O Negative Antibody Screen Positive Antibody Identification Passive Due to RH Imm Glob Antigen Identification Not Reportable DON, IgG Interpret Neg DON, Poly Interpret Not Performed DON, Complement Interp Negative Imaging Data Attestation: I personally reviewed and interpreted this imaging study as follows: Radiologist's impression: ITS Impressions Pelvis Ultrasound 08/24/24 14:39 IMPRESSION: 1. Prominent echogenic region potentially representing clot within the thickened endometrial complex at the fundus with vascular flow associated with a more hyperechoic focus more inferiorly towards the lower uterine segment which raises concern for retained products of conception. Discharge Plan Discharge Clinical Impression: Dysfunctional uterine bleeding, Retained products of conception Patient Disposition: Home Condition: Stable Instructions: Antibiotic Form, Abnormal (Dysfunctional) Uterine Bleeding (ED) Additional Instructions: Contact Dr. Cuenca's office ([phone]) first thing in the morning to make appointment for likely D&C. Do not eat or drink after midnight. Return to the ED if you experience worsening or severe bleeding, passing out, unable to keep down food or drink, severe pain, or any other symptoms of concern. Patient Language: Micronesian Prescriptions: No Action escitalopram oxalate 20 mg tablet 20 mg PO DAILY prenat.vits,lucho,qbc-lklr-okfnk Tablet 1 tablet PO DAILY ibuprofen 600 mg tablet 600 mg PO Q6H PRN (Reason: cramps) Qty: 30 0RF ferrous sulfate 325 mg (65 mg iron) tablet,delayed release (DR/EC) 325 mg PO DAILY Qty: 30 0RF Follow-up/Referrals: UNKNOWN,DOCTOR [Primary Care Provider] - Time of Disposition: 17:45
[2024-08-24 15:02] LABS: Add Urine Microscopic? YES; Appearance Urine Clear (Clear); Glucose Urine UA Negative (Negative); Leukocyte Esterase Ur Trace LEU/UL (Negative); Nitrate Urine Negative (Negative); Non Pathogenic Casts 0-2; Specific Grav Ur 1.013 (1.001-1.035)
[2024-08-24 15:43] LABS: Beta HCG Quantitative < 2.39 mIU/ML
== END 2024-08-24 18:06 | disposition home or self-care (01) ==
PROVIDERS: Emergency Provider Physician Assistant
DX: N93.8 Other specified abnormal uterine and vaginal bleeding (principal); F41.9 Anxiety disorder, unspecified; F32.A Depression, unspecified
CPT/HCPCS: 36415; 76856; 80053; 81001; 84702; 85025; 85610; 85730; 86850; 86880; 86900; 86901; 86902; 99284

== ENCOUNTER 2024-09-01 00:22 | Day surgery (SDC) | payer BC, SELFPAY ==
--- NOTE | 2024-08-31 09:11 | SUR.PREOP ---
Report to the Outpatient Waiting Room, entrance under the green pavilion located off [facility], at time ____1400___ on date ____09/01/2024___. Planned Procedure Time: ____1600____.? Time changes happen often and if your time is changed the preop area will call you the afternoon before. - You and your visitor will be asked to self-screen and do not enter if you have any COVID symptoms. Please call surgeon if you need to reschedule. - A mask is optional within the hospital at this time. Patients may have clear liquids (water, carbonated beverages, clear teas, apple juice) until 3 hours prior to surgery with a maximum of 20 ounces. - NO CLEAR LIQUIDS AFTER 1300 - No food from midnight until time of surgery and no smoking, or chewing tobacco (or any form of nicotine). No chewing gum, candy or mints. - Infants may have breast milk until 4 hours before surgery, infant formula 6 hours prior to surgery. - Children will be allowed to drink immediately following surgery.? If applicable, please bring a bottle or sippy cup to assist with drinking. Juice, water, soda, and popsicles are readily available.? For infants on formula, please bring formula the day of surgery.? Pacifiers are allowed. Take only the following medications with a SIP of water on the morning of surgery: LEXAPRO DO NOT STOP ANY OF YOUR OTHER PRESCRIPTION MEDICATIONS PRIOR TO SURGERY EXCEPT THE FOLLOWING Hold all vitamins and supplements for 3 days per anesthesiologist. STARTING TODAY 08/31/24 Medications to discontinue per physician N/A Date to take last dose Please no make-up, nail afghan, hairspray, perfume, deodorant, or body powder the day of surgery.? No jewelry (including any body piercings) or valuables the day of surgery, leave them at home.? Please take a shower or bath the night before, or the morning of, surgery with an antibacterial soap.? Wear comfortable, loose fitting clothing.? Children are encouraged to wear pajamas. - Jewelry must be removed prior to entering the operating room.? Rings and piercings that are not removed may be cut off. - The hospital will not accept responsibility for valuables.? - Please leave all valuables, including medications, at home the day of surgery. If you are going home after surgery, a licensed refrigerated company driver must drive you home.? - NO public transportation without another adult if you receive anesthesia. - We recommend that an adult stay with you for 24 hours following discharge. - We also recommend that you do not drive, make important decision, drink alcoholic beverages, or take any drugs that were not prescribed by your health care provider for at least 24 hours after your discharge time. For Pediatric surgeries, we recommend two adults accompany the child home. Follow any additional instructions given to you from your surgeon. Telephone instructions given to YUDI HART and asked if any additional questions and then verbalized understanding. Patient advised to call surgeon office or pre surgery nurse liaison [phone] if any additional questions.
[2024-08-31 09:23] VITALS: BMI 25.7
--- OUTSIDE RECORDS SUMMARY | 2024-09-01 00:24 | XMS_ITS | Clinical Summary ---
Author Organization [facility] Address [address] [facility] [place] [address] Care Team Providers Care Food Processing Plant Manager Name Role Phone Deepthi Garcia MD Unavailable Source Comments [facility],non-owned Affiliates and Associated Physician Practices is amultiple site organization consisting of ambulatory clinics and hospital sitesin [place], [place], [place] and [place]. This disclosure is being madepursuant to the Care Everywhere program and may not contain all information available regarding this patient. 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
--- OUTSIDE RECORDS SUMMARY | 2024-09-01 00:24 | XMS_ITS | Data Portability ---
Author Organization [facility] [employer] Address [address] [place] [address] Care Team Providers Care Chief Minister Name Role Phone [employer] OTHER Unavailable [...] plan. F/U 12 weeks, sooner if needed [email or web address] Not available 11/28/2020 12:01:02 02/27/2021 02/27/2021 Medication [...] plan. F/U 12 weeks, sooner if needed [email or web address] Not available 02/27/2021 20:15:26 10/08/2021 10/08/2021 Medication [...] plan. F/U 12 weeks, sooner if needed [email or web address] Not available 10/08/2021 16:50:54 12/24/2021 12/24/2021 Medication [...] plan. F/U 1 year, sooner if needed [email or web address] Not available 12/24/2021 12:37:09 Plan of Treatment Reminders Order Date Submit Date Provider Last Modified By Organization Details Last Modified Time Details Appointments None recorded. Lab CBC 2021 [facility], [address] [place], [address], 07:30:41 CMP, serum or plasma 2021 [facility], [address] [place], [address], 07:30:40 Referral None recorded. Procedures None recorded. Surgeries None recorded. Imaging None recorded. Medication Orders buspirone 30 mg tablet 2021 [id number] #[id number], [address], [place], [id number], 4 21:49:40 sertraline 25 mg tablet 2021 [id number] #51216, [address], [place], [id number], 12:36:39 buspirone 30 mg tablet 2021 [facility] #66304, [address] [place], [place], [id number], 4 21:49:40 buspirone 15 mg tablet [id number] [facility]82213, [address], [place], [id number], 2 16:50:55 pseudoephed rine-guaife nesin ER 120 mg-1,200 mg tab,extend release 12hr 2020 022 [facility] #38586, [address], [place], [id number], 2 14:36:40 buspirone 15 mg tablet [address] [facility] #69603, [address], [place], [id number], 16:50:55 Patient TargetsNo targets recorded. Patient InstructionsNo instructions recorded. Reason for Referral None Reported. Results Created Date Observation Date Name Description Value Unit Range Abnormal Flag Note LastModifiedBy Organization Detail LastModifiedTime 10/09/19 22 10/10/2021 COMPR EHENS TENZIN METAB OLIC PANEL glucose 77 mg/dL 65-99 normal Fasti ng refer ence inter marine Not Available [address], [address], 10/10/2021 07:30:40 10/09/19 22 10/10/2021 COMPR EHENS TENZIN METAB OLIC PANEL urea nitrogen (BUN) 15 mg/dL 7-25 normal Not Available [facility] [address], [address], 10/10/2021 07:30:40 10/09/19 22 10/10/2021 COMPR EHENS TENZIN METAB OLIC PANEL creatinine 0.84 mg/dL 0.50-0 .96 normal Not Available [facility] [address], [address], 10/10/2021 07:30:40 10/09/19 22 10/10/2021 COMPR EHENS [...] kdoqi /gfr% 5Fcal culat or Not Available [address], [address], 10/10/2021 07:30:40 10/09/19 22 10/10/2021 COMPR EHENS TENZIN METAB OLIC PANEL BUN/creatini ne ratio NOT APPLIC ABLE (calc ) 6-22 Not Available [address], [address], 10/10/2021 07:30:40 10/09/19 22 10/10/2021 COMPR EHENS TENZIN METAB OLIC PANEL sodium 138 mmol/ L 135-14 6 normal Not Available [address], [address], 10/10/2021 07:30:40 10/09/19 22 10/10/2021 COMPR EHENS TENZIN METAB OLIC PANEL potassium 4.0 mmol/ L 3.5-5. 3 normal Not Available [address], [address], 10/10/2021 07:30:40 10/09/19 22 10/10/2021 COMPR EHENS TENZIN METAB OLIC PANEL chloride 103 mmol/ L 98-110 normal Not Available [address] [place], [address], 10/10/2021 07:30:40 10/09/19 22 10/10/2021 COMPR EHENS TENZIN METAB OLIC PANEL carbon dioxide 26 mmol/ L 20-32 normal Not Available [address], [address], 10/10/2021 07:30:40 10/09/19 22 10/10/2021 COMPR EHENS TENZIN METAB OLIC PANEL calcium 9.7 mg/dL 8.6-10 .2 normal Not Available [address], [address], 10/10/2021 07:30:40 10/09/19 22 10/10/2021 COMPR EHENS TENZIN METAB OLIC PANEL protein, total 6.9 g/dL 6.1-8. 1 normal Not Available [address], [address], 10/10/2021 07:30:40 10/09/19 22 10/10/2021 COMPR EHENS TENZIN METAB OLIC PANEL albumin 4.7 g/dL 3.6-5. 1 normal Not Available [address], [address], 10/10/2021 07:30:40 10/09/19 22 10/10/2021 COMPR EHENS TENZIN METAB OLIC PANEL globulin 2.2 g/dL_ (calc ) 1.9-3. 7 normal Not Available [address], [address], 10/10/2021 07:30:40 10/09/19 22 10/10/2021 COMPR EHENS TENZIN METAB OLIC PANEL albumin/glob ulin ratio 2.1 (calc ) 1.0-2. 5 normal Not Available [address], [address], 10/10/2021 07:30:40 10/09/19 22 10/10/2021 COMPR EHENS TENZIN METAB OLIC PANEL bilirubin, total 0.4 mg/dL 0.2-1. 2 normal Not Available [facility] [address] [address], [place], [address], 10/10/2021 07:30:40 10/09/19 22 10/10/2021 COMPR EHENS TENZIN METAB OLIC PANEL alkaline phosphatase 57 U/L 31-125 normal Not Available [facility] [employer] [address], [address], 10/10/2021 07:30:40 10/09/19 22 10/10/2021 COMPR EHENS TENZIN METAB OLIC PANEL AST 19 U/L 10-30 normal Not Available [address], [address], 10/10/2021 07:30:40 10/09/19 22 10/10/2021 COMPR EHENS TENZIN METAB OLIC PANEL ALT 14 U/L 6-29 normal Not Available [address], [address], 10/10/2021 07:30:40 10/09/19 22 10/10/2021 CBC (H/H, RBC, INDIC ES, WBC, PLT) white blood cell count 7.3 thous and/u L 3.8-10 .8 normal Not Available [address], [address], 10/10/2021 07:30:41 10/09/19 22 10/10/2021 CBC (H/H, RBC, INDIC ES, WBC, PLT) red blood cell count 4.71 reagan on/uL 3.80-5 .10 normal Not Available [address], [address], 10/10/2021 07:30:41 10/09/19 22 10/10/2021 CBC (H/H, RBC, INDIC ES, WBC, PLT) hemoglobin 14.4 g/dL 11.7-1 5.5 normal Not Available [employer] [address], [address], 10/10/2021 07:30:41 10/09/19 22 10/10/2021 CBC (H/H, RBC, INDIC ES, WBC, PLT) hematocrit 45.1 % 35.0-4 5.0 high Not Available [address], [address], 10/10/2021 07:30:41 10/09/19 22 10/10/2021 CBC (H/H, RBC, INDIC ES, WBC, PLT) MCV 95.8 fL 80.0-1 00.0 normal Not Available [address], [address], 10/10/2021 07:30:41 10/09/19 22 10/10/2021 CBC (H/H, RBC, INDIC ES, WBC, PLT) MCH 30.6 pg 27.0-3 3.0 normal Not Available [address], [address], 10/10/2021 07:30:41 10/09/19 22 10/10/2021 CBC (H/H, RBC, INDIC ES, WBC, PLT) MCHC 31.9 g/dL 32.0-3 6.0 low Not Available [address], [address], 10/10/2021 07:30:41 10/09/19 22 10/10/2021 CBC (H/H, RBC, INDIC ES, WBC, PLT) RDW 12.8 % 11.0-1 5.0 normal Not Available [address], [address], 10/10/2021 07:30:41 10/09/19 22 10/10/2021 CBC (H/H, RBC, INDIC ES, WBC, PLT) platelet count 278 thous and/u L 140-40 0 normal Not Available [address], [address], 10/10/2021 07:30:41 10/09/1910/10/2021 CBC (H/H, RBC, INDIC ES, WBC, PLT) MPV 11.4 fL 7.5-12 .5 normal Not Available [facility] [address], [place], [address], 10/10/2021 07:30:41 Result Notes None recorded. Problems Name Problem SNOMED Code Status Onset Date Resolution Date Notes Provider Name and Address Organization Details Recorded Time Tension-typ e headache 958643370 Completed 201912/24/2021 Cherelle Whyte Jono [employer] G[employer]-BC, PMHNP-BC [address], [place], [address], [place] [facility] 16:20:44 Elevated blood-press ure reading without diagnosis of hypertensio n 118278100 Completed 201912/24/2021 Cherelle Whyte Jono [employer] G[employer]INER-BC, PMHNP-BC [address], [place], [address], [place] [facility] 2 16:20:46 COVID-19 623048431 Completed 201912/24/2021 Cherelle Whyte Jono [employer] GRA[employer]ER-BC, PMHNP-BC [address], [place], [address], [place] [facility] 2 16:20:50 Generalized anxiety disorder 02687529 Active 2021 Cherelle Whyte Jono [employer] GRAINER-BC, PMHNP-BC [address], [place], [address], [place] [facility] 2 12:06:44 Single episode of major depression in full remission 70106034 Completed 202112/24/2021 Cherelle Whyte Jono [employer] GRAINER-BC, PMHNP-BC [address], [place], [address], [place] [facility] 10/31/202 2 16:20:40 Anxiety 68751741 Active 2018 Cherelle De La Cruz, [facility], PM[facility]-BC [address] , [facility] [place], [address], [facility] 9 15:24:26 Acne 80834127 Completed 201812/24/2021 Cherelle De La Cruz [facility], [facility]- [address] , [facility] [place], [address], [facility] 16:20:53 Insomnia 241662736 Completed 201812/24/2021 Cherelle De La Cruz [facility], [facility]- [address] , [facility] [place], [address], [facility] 16:21:00 Problem Notes None recorded. [...] blood by Pulse oximetry Body temperature Systolic And Diastolic Provider Name and Address Organization Details Last Updated DateTime 2 187.96 cm 76 /min 18 /min 98 % 98 % 97.9 [degF] 120/62 mm[Hg] Dee Ibarra [facility] 2 19:39:18 Date Recorded Body height Body mass index (BMI) Body weight Heart rate Respiratory rate Oxygen saturation Oxygen saturation in Arterial blood by Pulse oximetry Body temperature Systolic And Diastolic Provider Name and Address Organization Details Last Updated DateTime 2 187.96 cm 24 kg/m2 57962.7 7 g 64 /min 18 /min 99 % 99 % 98.1 [degF] 120/82 mm[Hg] Vernon Loya [facility] 2 12:41:19 Date Recorded Body height Heart rate Respiratory rate Oxygen saturation Oxygen saturation in Arterial blood by Pulse oximetry Body temperature Systolic And Diastolic Provider Name and Address Organization Details Last Updated DateTime 1 187.96 cm 70 /min 20 /min 98 % 98 % 96.7 [degF] 116/92 mm[Hg] Cherelle De La Cruz, [employer] G[employer]INER-, PMHNP-BC [address] [place], [address] [place] [address] 1 12:01:15 Date Recorded Body height Oxygen saturation Oxygen saturation in Arterial blood by Pulse oximetry Body temperature Respiratory rate Heart rate Systolic And Diastolic Provider Name and Address Organization Details Last Updated DateTime 2 187.96 cm 98 % 98 % 98.1 [degF] 20 /min 90 /min 112/80 mm[Hg] Sean Mc [facility] 2 13:10:37 Social History Question Answer Notes LastModified by Organizat ion Details LastModified Time Tobacco Smoking Status Never Smoker Not Available [facility] 12/21/2019 03:14:01 Do You Have An Advance Directive? No [id number] Information not available 12/21/2019 Do You Wear A Helmet When Biking? Yes [email or web address] Information not available 10/31/2020 Are You Blind Or Do You Have Difficulty Seeing? No Information not available 10/31/2020 What Is Your Level Of Caffeine Consumption? Moderate [id number] Information not available 12/21/2019 How Much Tobacco Do You Chew? None [id number] Information not available 12/21/2019 What Type Of Lab Coordinator Do You Use? None [email or web address] Information not available 10/31/2020 What Is Your Code Status? Full Code [email or web address] Information not available 10/31/2020 Are You Deaf Or Do You Have Serious Difficulty Hearing? No [email or web address] Information not available 10/31/2020 What Type Of Diet Are You Following? REGULAR Information not available 10/31/2020 Which Illicit Or Recreational Drugs Have You Used? None [id number] Information not available 12/21/2019 What Is The Highest Grade Or Level Of School You Have Completed Or The Highest Degree You Have Received? [id number] [email or web address] Information not available 10/31/2020 Have There Been Any Changes To Your Family Or Social Situation? No [email or web address] Information no t available 10/31/2020 Are There Any Guns Present In Your Home? No [email or web address] Information not available 10/31/2020 Do You Use Insect Repellent Routinely? Yes [email or web address] Information not available 10/31/2020 Do You Have A Medical Power Of Account Planner? No [email or web address] Information not available 10/31/2020 What Was The Date Of Your Most Recent Tobacco Screening? 10/31/2020 [email or web address] Information not available 10/31/2020 Do You Have Any Pets? Yes Information not available 10/31/2020 What Is Your Relationship Status? Domestic Partner Information not available 10/31/2020 Do You Use Your Seat Belt Or Car Seat Routinely? Yes [email or web address] Information not available 10/31/2020 Are You Sexually Active? Yes [email or web address] Information not available 10/31/2020 Do You Have Smoke And Carbon Monoxide Detectors In Your Home? Yes [email or web address] Information not available 10/31/2020 Are You Passively Exposed To Smoke? No [email or web address] Information no t available 10/31/2020 How Much Tobacco Do You Smoke? No [id number] Information not available 12/21/2019 Do You Use Sunscreen Routinely? Yes [email or web address] Information not available 10/31/2020 How Many Years Have You Smoked Tobacco? 0 [id number] Information not available 12/21/2019 Do You Have Difficulty Walking Or Climbing Stairs? No Information not available 10/31/2020 Are You Currently In School? No [email or web address] Information not available 10/31/2020 Do You Have Any Dietary Restrictions? No [email or web address] Information not available 10/31/2020 Sex: Female Functional Status Question Answer Note LastModified by Organizat ion Details LastModified Time Do you or have you ever used smokeless tobacco? Never used smokeless tobacco [id number] Information not available 12/21/2019 Are you currently employed? Yes [email or web address] Information not available 10/31/2020 Do you have transportation difficulties? No [email or web address] Information not available 10/31/2020 Are you able to care for yourself? Yes Information n ot available 10/31/2020 Do you have difficulty dressing or bathing? No Information not available 10/31/2020 Do you or have you ever used e-cigarettes or vape? Never used electronic cigarettes [id number] Information not available 12/21/2019 What is your exercise level? Moderate [id number] Information not available 12/21/2019 Do you use any illicit or recreational drugs? No [email or web address] Information not available 10/31/2020 Do you or have you ever used any other forms of tobacco or nicotine? No Information not available 10/31/2020 What is your level of alcohol consumption? Occasional [id number] Information not available 12/21/2019 Are you able to walk? YESWOREST [id number] Information not available 12/21/2019 Do you have difficulty doing errands alone? No [email or web address] Information not available 10/31/2020 What is your occupation? [employer] [id number] Information not available 12/21/2019 Mental Status Question Answer Note LastModified by Organizat ion Details LastModified Time Do you feel stressed (tense, restless, nervous, or anxious, or unable to sleep at night)? [id number] [email or web address] Information not available 10/31/2020 Do you have difficulty concentrating, remembering or making decisions? No Information no t available 10/31/2020 Family History Relationship Description Onset Age of this Age Resolved Age Notes LastModified by Organization Details LastModified Time Father Essential hypertension [email or web address] Not available 10:56:40 Father Anxiety disorder [email or web address] Not available 2018 10:56:46 Paternal Grandmother Malignant tumor of breast [email or web address] Not available 2018 10:57:12 Paternal Grandfather Alzheimer's disease [email or web address] Not available 2018 10:57:21 Paternal Uncle Cerebrovascu lar accident Not available 10:57:30 Maternal Grandfather Diabetes mellitus [email or web address] Not available 2018 10:57:50 Medical History Condition Response Anxiety Disorder Y Hypertension Y Gynecological HistoryNo gynecological history recorded. Obstetrics History GPAL:G 0 P 0 0 0 0 Immunizations Vaccine Type Date Status Note Provider Nam e and Address Organization Details Recorded Time Influenza, split virus, quadrivalent, PF 12/07/2020 completed Not Available [facility] 18:45:07 Influenza, split virus, quadrivalent, PF 12/03/2019 completed Cleo Kennedy [facility] 12/03/2019 18:49:23 Past Encounters Encounter ID Performer Location Encounter Start Date Encounter Closed Date Diagnosis/Indication Diagnosis SNOMED-CT Code Diagnosis ICD10 Code Diagnosis Note [id number] DWIGHT Byrd-, PMHNP- Main Office [address] [place] [address] 12/16/2018 10:36:09 12/17/2018 08:52:44 Major depressive disorder 999295653 F32.9 Insomnia 856696664 G47.0 0 Adult heal th examination 716434601 Z00.00 Fatigue 26021097 R53.83 Will check Thyroid levels to r/o Thyroid vs possible increase in depression . Vitamin D deficiency 347 23359 E55.9 [id number] [facility] [address] [place] [address] 03/11/2019 08:33:32 03/11/2019 12:13:22 Major depressive disorder 072097891 F32.9 Insomnia 591347031 G47.0 0 Acute sinusitis 70391689 J01.90 Finishing up medication s. Resolving. [id number] Cherelle MagnoliaNEFTALI [facility] Main Office [address] [place] [address] 06/16/2019 08:22:11 06/16/2019 16:11:11 Major depressive disorder 702457332 F32.9 Controlled . Continue regimen. Essential hypertension 88357637 I10 BP much better at visit. Will monitor. Tension-type headache 39 2995482 G44.209 [id number] Cherelle MagnoliaNEFTALI [facility] Main Office [address] [place] [address] 12/03/2019 12:40:26 12/03/2019 15:53:15 Major depressive disorder 246268256 F32.9 Controlled . Continue regimen. Tension-type headache 39 8031132 G44.209 Elevated blood-pressure reading without diagnosis of hypertension 126441019 R03.0 Much better. Will monitor. COVID-19 224539514 U07.1 Given cocktail in between visits and doing much better. Counseled on the unknowns senior care with COVID, but to start slow when getting back into exercising . Administra tion of influenza vaccine 96557611 Z23 [id number] [facility] Main Office [address] [place] [address] 05/17/2020 06:34:26 05/18/2020 09:26:28 Major depressive disorder 756251230 F32.9 Controlled . Continue regimen. Tension-type headache 39 2381356 G44.209 Controlled , but has made some lifestyle modificati ons and wants to try coming off medication . Weaning protocol given and explained. [id number] [facility] Main Office [address] [place] [address] 10/31/2020 06:43:42 10/31/2020 13:18:47 Major depressive disorder 149061981 F32.9 Anxiety 05214431 F41.9 [id number] Cherelle De La Cruz [facility] Main Office [address] [address] 11/28/2020 06:44:09 11/28/2020 12:11:35 Anxiety 30273383 F41.9 Acute fron logan sinusitis 77710148 J01.10 [id number] Cherelle De La Cruz [facility] Main Office [address] [address] 12/07/2020 17:03:26 12/07/2020 18:19:13 Administration of influenza vaccine 17014619 Z23 [id number] Cherelle De La Cruz [facility] Main Office [address] [address] 02/27/2021 08:29:59 02/27/2021 20:34:41 Anxiety 27123485 F41.9 Doing much better with the changes in medication . Continue regimen. [id number] Cherelle De La Cruz [facility] [employer] [address] [address] 10/08/2021 10:53:39 10/08/2021 16:58:56 Anxiety 73526044 F41.9 Increasing Buspirone given decreasing Sertraline to stop. Single epi sode of major depression in full remission 99266564 F32.5 Weaning medication to stop. Doing very well. [id number] Cherelle De La Cruz [facility] [employer] [address] [address] 12/24/2021 06:57:56 12/24/2021 18:09:08 Anxiety 57316803 F41.1 Continue Buspirone as this is providing a benefit. Doing very well off sertraline . Health Concerns Section Related Observation LastModified by Organization Detai ls LastModified Time None Recorded Concern Status LastModified by Organization Details LastModified Time None Recorded Advance Directives Directive N: Payers Insurance Date Sequence Insurance Name Policy Number Policy Gaffney Covered Member ID Gaffney Member ID Guarantor Name 12/25/2021 1 [facility] [id number] Josefa Kennedy [id number] Josefa Kennedy Notes Date Note Type Note [...] good; no apathy; maintaining functionality;anxietyS inusitis/AllergyReport ed bypatient.[facility] Quality:no itching;weak voice;hoarseness;achin g;congested;pounding Severity:no nosebleeds (epistaxis); [...] HIV; no immunodeficiency Cherelle De La Cruz [facility] [address] [facility] 11/28/2020 12:02:17 02/27/2021 text/html [...] no apathy; maintaining functionality Cherelle De La Cruz [facility] [address] [facility] 02/27/2021 20:15:48 10/08/2021 text/html Anxiety/Depressi [...] no apathy; maintaining functionality Cherelle De La Cruz [facility] [address] [facility] 10/08/2021 16:52:48 12/24/2021 text/html [...] apathy; maintaining functionality Cherelle De La Cruz, [employer] GRAINER-BC, PMHNP-BC [address] [place], [address], [facility] 12/24/2021 16:21:16 OBGyn Episode No OBEpisode recorded.
--- NOTE | 2024-09-01 09:02 | PM.IMHP ---
H&P: HPI History of Present Illness Date/Time: 09/01/24 09:02 Chief Complaint: Vaginal bleeding Narrative: 28 y/o who had a term vaginal delivery followed by hemorrhage. She underwent D&C and had blood transfusion. She has had persistent vaginal bleeding two months later. Ultrasound shows endometrial thickening suspicious for retained products of conception. Review of Systems Review of Systems: All systems reviewed & are unremarkable except as noted in HPI and below PMFSH Past Medical History Medical History Overweight (BMI 25.0-29.9) Anxiety and depression Migraines and not yet delivered Surgical History Surgical History History of D&C Family History Family History Other Patient denies significant medical history Social History Social History Smoking status: Never smoker Substance use: never Do You Feel Safe in your Home?: No Lack of Transportation: No Lack of Food: Never True Current Housing: I Have Housing Concerned About Future Housing: No Difficulty Paying Gas/Electric Bills: No Difficulty Paying for Meds: No Currently Unemployed: No Education: Bachelor's Degree Difficulty w/ Childcare or Family Care: No Spiritual care concerns: No Meds Home Medications and Allergies Home Medications ?Medication ?Instructions ?Recorded ?Confirmed ?Type prenat.vits,lucho,ysw-ewya-aewdu 1 tablet PO DAILY 07/11/22 08/31/24 History escitalopram oxalate 20 mg tablet 20 mg PO DAILY 02/21/24 08/31/24 History Allergies Allergy/AdvReac Type Severity Reaction Status Date / Time No Known Allergies Allergy Verified 08/31/24 09:24 Exam Const: Orientation/consciousness: patient oriented x3 Other: Well-developed, well-nourished female in no acute distress. Neck: Thyroid: thyroid normal Lymphatic: no lymphadenopathy noted (in neck, axilla or inguinal nodes) Resp: Effort & Inspection: normal respiratory effort Auscultation: clear to auscultation bilaterally Cardio: Rate: regular rate Rhythm: regular rhythm Heart sounds: S1 normal heart sound present and S2 normal heart sound present GI: Other: ABD: Soft, nontender, nondistended. No guarding or rebound tenderness. No hepatosplenomegaly. : General: Yes no CVA tenderness Other: Deferred to OR Back/Spine/Pelvis: Back: no CVA tenderness Skin: General skin exam: normal color and no rashes or lesions noted Neuro: General: patient oriented x3 Extrem: Other: Extremities: nontender with no edema Psych: Mental Status: mental status grossly normal Affect: normal affect Assessment and Plan Assessment and plan (1) Menometrorrhagia: Code(s): N92.1 - Excessive and frequent menstruation with irregular cycle Status: Acute Assessment and Plan: A: Persistent vaginal bleeding with possible retained products of conception. P: Offered hysteroscopy with dilation and sharp curettage. She understands risks of surgery to include risks of anesthesia, risks of pain, infection, bleeding, blood products, thromboembolic phenomena and damage to adjacent structures such as bowel, bladder, ureters, blood vessels and nerves. She understands all these risks and elects to proceed with surgery. (2) Abnormal pelvic ultrasound: Code(s): R93.89 - Abnormal findings on diagnostic imaging of other specified body structures Status: Acute
[2024-09-01 14:15] VITALS: BP 117/70; PULSE 72; RESP 16; TEMP 36.2; O2SAT 99
[2024-09-01] MEDS: ACETAMINOPHEN 500 MG TABLET 1000 MG PO (14:25)
[2024-09-01] MEDS: LACTATED RINGERS 1,000 ML 30 ML IV CONT (14:30)
--- NOTE | 2024-09-01 14:44 | P.PNAN_ITS ---
Anes - Initial Pre Proc Eval Procedure: Operation Date: 09/01/24 16:00 Proposed Procedures p Hysteroscopy Dilation and Curettage - Zeyad Cuenca MD Date/Time: 09/01/24 14:44 Surgeon: Zeyad Cuenca MD Pre Op Diagnosis: menometrorrhagia, abnormal pelvic ultrasound Patient Data Age: 28 Gender: F Height: 1.88 m Weight: 91 kg Allergies Allergy/AdvReac Type Severity Reaction Status Date / Time No Known Allergies Allergy Verified 09/01/24 14:41 Home Medications ?Medication ?Instructions ?Recorded ?Confirmed ?Type prenat.vits,lucho,qgr-raxq-yedso 1 tablet PO DAILY 07/11/22 09/01/24 History escitalopram oxalate 20 mg tablet 20 mg PO DAILY 02/21/24 09/01/24 History Patient hx anesthesia problems: none Family hx anesthesia problems: none Results Review: All pre-operative results and documents have been reviewed as part of the pre- operative evaluation. FOR[facility] Past Medical History Medical History (Updated 09/01/24 @ 14:44 by Tomi Vinson MD) Overweight (BMI 25.0-29.9) Anxiety and depression Migraines Surgical History Surgical History History of D&C Family History Family History Other Patient denies significant medical history Social History Social History Smoking status: Never smoker Substance use: never Do You Feel Safe in your Home?: No Lack of Transportation: No Lack of Food: Never True Current Housing: I Have Housing Concerned About Future Housing: No Difficulty Paying Gas/Electric Bills: No Difficulty Paying for Meds: No Currently Unemployed: No Education: Bachelor's Degree Difficulty w/ Childcare or Family Care: No Spiritual care concerns: No Anes - Eval Final PreProcedure Day of Procedure 09/01/24 14:44 Patient weight: normal Heart: regular rate and rhythm Lungs: clear to auscultation Airway: Mallampati scale class II Neurological: alert and oriented Last oral intake: >/= 8 hours ASA classification: II Emergent: no Anesthetic plan: proceed Anesthesia type and monitoring: general GIVS and standard monitoring Results Review: All pre-operative results and documents have been reviewed as part of the pre- operative evaluation. Informed Consent: The patient's anesthetic plan and its attendant risks and benefits were discussed with the patient/family/POA. Questions were solicited and answers provided to the satisfaction of the patient/family/POA.
[2024-09-01 15:11] LABS: BEDSIDEPREGUCG Negative (Negative)
--- NOTE | 2024-09-01 15:14 | WPDHPUPDATE1 ---
History and Physical Update Update Date/Time: 09/01/24 15:14 History and Physical has been reviewed, including an updated exam of the patient. There are NO changes in the patient's condition. Risks, benefits, and alternatives have been discussed and questions answered. Patient agrees to proceed with procedure.
[2024-09-01] MEDS: LIDOCAINE 1% LOCAL INJ 10 ML VIAL INFILTRATE (15:39)
--- NOTE | 2024-09-01 15:46 | S_PTH ---
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
--- NOTE | 2024-09-01 15:54 | W.PM.PROC2 ---
Procedure Note - Detailed Date of Procedure 09/01/24 Pre-op Diagnosis Menometrorrhagia Abnormal pelvic ultrasound Post-op Diagnosis Same Procedure Performed Hysteroscopy Dilation and sharp curettage Surgeon Zeyad Cuenca MD Anesthesia MAC and Local (1% lidocaine) Findings Irregular tissue at the anterior fundal portion of the endometrial cavity. Both tubal ostia seen. Description of Procedure The patient was taken to the operating room where she was prepared and draped in the usual sterile fashion in the dorsal lithotomy position. The bladder was drained with a red rubber catheter. A sterile speculum was placed into the vagina. The anterior lip of the cervix was grasped with single-tooth tenaculum. Ten mL of 1% lidocaine was administered in a paracervical block. The cervix was then gently dilated using Hegar dilators until a 7 mm dilator could be passed. Hysteroscopy was performed using sterile saline as a distention medium. Findings are as noted above. The Aveta resector was advanced and irregular tissue from the fundal region was fully excised. Sharp curettage was then performed, and endometrial curettings were collected on a Telfa pad and passed off to be sent to pathology. Hemostasis was excellent. Sponge, lap, needle and instrument counts were correct. The patient was awakened and taken to the recovery room in stable condition. I was present and scrubbed through the entire procedure. Estimated Blood Loss 5 Drains No Packing No Pathology Yes (Endometrial curettings) Complications None Condition Stable Disposition PACU [facility] Billing Surgery - Charge Forward: Surgery Billing
[2024-09-01 15:55] VITALS: BP 101/58; PULSE 52; RESP 14; O2SAT 95
[2024-09-01 16:20] VITALS: BP 109/71; PULSE 53; RESP 14; O2SAT 95
[2024-09-01 16:50] VITALS: BP 111/64; PULSE 53; RESP 14
== END 2024-09-01 16:56 | disposition home or self-care (01) ==
PROVIDERS: Visit Provider Obstetrics & Gynecology
PROC: 0U5B8ZZ Destruction of Endometrium, Via Natural or Artificial Opening Endoscopic (ICD-10-PCS; CPT 58563; principal; 2024-09-01 16:00)
DX: R93.89 Abnormal findings on diagnostic imaging of other specified body structures (principal); F41.8 Other specified anxiety disorders; Z98.890 Other specified postprocedural states
CPT/HCPCS: 58558; 88305; A9270; J2003; J2250; J2270; J2704; J7120

== ENCOUNTER 2025-02-20 11:42 | Emergency (ER) | payer BC, SELFPAY ==
--- NOTE | 2025-02-20 12:19 | ED_ITS ---
HPI - URI/Sore Throat General Chief Complaint: Upper Respiratory Infection Stated Complaint: +covid Time Seen by Provider: 02/20/25 12:35 Source: patient Mode of arrival: ambulatory Limitations: no limitations History of Present Illness HPI Narrative: Josefa is a 29-year-old female patient presenting to the clinic today with complaints of cough, body aches, congestion, and shortness of breath. Symptoms started yesterday. Tested positive for COVID a home this morning. Has not taken any medications for her symptoms. Related Data Allergies Allergy/AdvReac Type Severity Reaction Status Date / Time No Known Allergies Allergy Verified 02/20/25 13:14 Review of Systems Review of Systems: Pertinent positives per HPI. Patient denies any fever, chills, rash, headache, visual changes, dizziness, sore throat, chest pain, palpitations, nausea, vomiting, diarrhea, constipation, abdominal pain, or any urinary issues. PMFSH Past Medical History Medical History Anemia Menometrorrhagia Overweight (BMI 25.0-29.9) Anxiety and depression Migraines Surgical History Surgical History History of D&C Family History Family History Father Hypertension Depression Anxiety Sibling Anxiety Depression Grandparent Diabetes mellitus Grandparent Breast cancer Anxiety Depression Other Patient denies significant medical history Social History Social History Smoking status: Never smoker Substance use: never Lack of Transportation: No Lack of Food: Never True Current Housing: I Have Housing Concerned About Future Housing: No Difficulty Paying Gas/Electric Bills: No Difficulty Paying for Meds: No Currently Unemployed: No Education: Bachelor's Degree Difficulty w/ Childcare or Family Care: No Living arrangements: with family Occupation/Education: occupation Gender identity (if verbalized by the patient): Female Spiritual care concerns: No Comments At the time of my signature, I reviewed and agree with the nursing past medical, surgical, social, and family history. There is no relevant family history pertinent to the patient complaint. Exam Narrative: General: Well-developed, well nourished, in no apparent distress Head: Normocephalic, atraumatic Eyes: Pupils equally round and reactive to light bilaterally, EOM intact, sclera and conjunctive clear, no discharge, lids normal Ears: TMs intact and clear, ear canals clear, no drainage, grossly hearing normal. Nose: Nares patent, clear nasal discharge, mild inflammation, no sinus tenderness. Mouth: Oropharynx without lesions or masses, good dentition, MMM. Neck: Supple, trachea midline, no enlargement of anterior or posterior cervical nodes, no thyroid masses or goiter palpable. Cardio: Regular rate and rhythm, s1 and s2 normal, no murmur appreciated. Resp: Clear to auscultation bilaterally anteriorly and posteriorly, no rhonchi, rales, wheezing or rubs Course Course Level of Care: Express Care Visit Vital Signs Vital signs: Vital Signs Temperature 36.5 C 02/20/25 12:30 Pulse Rate 69 02/20/25 12:30 Respiratory Rate 16 02/20/25 12:30 Blood Pressure 145/79 H 02/20/25 12:30 Pulse Oximetry 100 02/20/25 12:30 Temperature 36.5 C 02/20/25 12:30 Pulse Rate 69 02/20/25 12:30 Respiratory Rate 16 02/20/25 12:30 Blood Pressure 145/79 H 02/20/25 12:30 Pulse Oximetry 100 02/20/25 12:30 MDM MDM Narrative Medical decision making narrative: At the time of visit patient is resting comfortably on the exam table. Patient appears to be nontoxic. Complaints of cough, body aches, congestion, and shortness of breath. Symptoms started yesterday. Tested positive for COVID a home this morning. Has not taken any medications for her symptoms. On exam patient has TMs intact and clear, clear nasal drainage, no anterior turbinate the sounds are clear, oral pharynx normal, no cervical lymphadenopathy, heart rates regular rate and rhythm. Plan: I suspect patient has COVID. Prescription for Paxlovid sent to the pharmacy. Risk and benefits of the medication was reviewed with the patient. Work note was given. Supportive measures were discussed with the patient and they voiced understanding discharge instructions and agrees to treatment plan. Return precautions reviewed Differential Diagnosis Differential Diagnosis: Differential diagnostic considerations for upper respiratory infection include upper respiratory infection, croup, otitis media, sinusitis, viral infection, bronchitis, influenza, pharyngitis, strep, uvulitis. Discharge Plan Discharge Clinical Impression: COVID-19 Patient Disposition: Home Condition: Stable Instructions: Antibiotic Form, How to Recover from COVID-19 at Home (ED) Additional Instructions: Take prescription medications only as prescribed-Paxlovid Increase fluids and stay well hydrated May take Tylenol or motrin as directed on bottle for pain/fever May use Flonase 1 spray in each nare daily May take OTC antihistamines such as Zyrtec or Claritin daily as directed on bottle May apply Vicks vapor rub to chest to open sinuses Sinus rinses for congestion Cepacol spray, cough drops, throat lozenges, warm tea with honey/lemon, gargle salt water to soothe throat BRAT diet for diarrhea Clear liquids x 24 hours then advance as tolerated for nausea/vomiting Go to the ED if you develop a worsening in your condition- high fever not controlled by Tylenol or Motrin, dehydration, weakness, lethargy, shortness of breath, or chest pain. Follow up with your PCP in 3-5 days if symptoms persist. Patient Language: Ecuadorean Prescriptions: New Paxlovid 300 mg (150 mg x 2)-100 mg tablets,dose pack See Rx Instructions PO .COMPLEX Qty: 30 0RF Rx Instructions: take TWO 150 mg tablets of nirmatrelvir with ONE 100 mg tablet of ritonavir twice daily for 5 days No Action escitalopram oxalate 20 mg tablet 20 mg PO DAILY Qty: 90 1RF Follow-up/Referrals: Lala Pleitez APRN [Primary Care Provider, Internal Medicine] Stand Alone Forms: Work/School Release IP Time of Disposition: 12:34 Quality NIHSS Nursing Documentation ED NIHSS nursing documentation: reviewed/agree
[2025-02-20 12:30] VITALS: BP 145/79; PULSE 69; RESP 16; TEMP 36.5; O2SAT 100
== END 2025-02-20 12:45 | disposition home or self-care (01) ==
PROVIDERS: Emergency Provider Nurse Practitioner Family; PCP Nurse Practitioner Family
DX: U07.1 COVID-19 (principal); F41.9 Anxiety disorder, unspecified; F32.A Depression, unspecified
CPT/HCPCS: 99213; G0463